=== PATIENT | female | born 1960 | race Caucasian/White ===

== ENCOUNTER 2016-04-30 15:50 | Emergency (ER) | payer MEDICARE ==
[2016-04-30] MEDS ORDERED: diphenhydrAMINE 50 MG CAP PO STA (17:43)
[2016-04-30] MEDS ORDERED: PROPARACAINE 0.5% OPHTH DROPS 15 ML BTL RIGHT EYE STA (17:43)
[2016-04-30] MEDS ORDERED: ACETAMINOPHEN TAB 500 MG TAB PO STA ×2 (17:43→19:11)
--- NOTE | 2016-04-30 17:43 | ED ---
Eye Problem HPI - General Chief complaint: Eye Problems Stated complaint: Eye Problems Time Seen by Provider: 04/30/16 17:32 Source: patient, RN notes reviewed Mode of arrival: ambulatory Limitations: no limitations - History of Present Illness Initial comments: 55-year-old female presents to the emergency department with a chief complaint of right eye redness and itching skin. Patient states that she seen her doctor for both her right eye redness as well as her itching skin. Her doctor told her that her itching was due to dry skin. Patient states that she also was seen for this right eye. They state it appeared to be inflamed they put her on steroids and sent her home. Patient states it improved but now it is red again patient states she has been treating her granddaughter for pinkeye to the right eye.. Patient states she has no symptoms of pain to the eye patient states she has noticed watering of the eye and itching to the eye. Patient states she hasn 't noticed any changes in vision. Patient states that she hasn't had any nausea or vomiting with this. Patient denies any fever or chills. Patient states she was concerned due to the continued redness to the eye as well as the itching of the skin so she thought that she should be evaluated. Patient denies any recent fever, chills, shortness of breath, chest pain, back pain, abdominal pain, nausea vomiting, numbness or tingling, dysuria or hematuria, constipation or diarrhea, headaches or visual changes, or any other current symptoms. - Related Data Home Medications Medication Instructions Recorded Confirmed Methylphenidate HCl [Ritalin] 20 mg PO BID 12/03/13 04/30/16 Potassium Chloride [Potassium 20 meq PO TID 12/03/13 04/30/16 Chloride ER] Venlafaxine HCl [Effexor] 75 mg PO BID 12/03/13 04/30/16 sulfaSALAzine [Azulfidine] 1,000 mg PO QID 12/03/13 04/30/16 Furosemide [Lasix] 20 mg PO DAILY 01/19/15 04/30/16 Losartan Potassium 100 mg PO QAM 01/19/15 04/30/16 traZODone HCL [Desyrel] 200 mg PO HS 01/19/15 04/30/16 Gabapentin [Neurontin] 100 mg PO TID 05/10/15 04/30/16 Ibuprofen [Motrin] 800 mg PO TID 05/10/15 04/30/16 Albuterol Nebulized [Ventolin 2.5 mg INHALATION RT-Q4H PRN 07/05/15 04/30/16 Nebulized] HYDROcodone/APAP 10-325MG [[place] 1 tab PO TID 12/07/15 04/30/16 10-325] Budesonide [Pulmicort] 0.25 mg INHALATION RT-BID PRN 04/27/16 04/30/16 Cyclobenzaprine [Flexeril] 5 mg PO BID 04/27/16 04/30/16 LORazepam [Lorazepam] 1 mg PO TID 04/27/16 04/30/16 Lidocaine 2% Gel [Xylocaine Jelly 1 applic TOPICAL BID 04/30/16 04/30/16 2%] Ranitidine HCl [Zantac] 75 mg PO DAILY PRN 04/30/16 04/30/16 predniSONE 10 mg PO BID 04/30/16 04/30/16 Previous Rx's Medication Instructions Recorded Tobramycin 0.3% Ophth Oint [Tobrex 1 applic RIGHT EYE TID 7 Days 04/30/16 0.3% Ophth Oint] diphenhydrAMINE [Benadryl] 50 mg PO HS PRN #5 capsule 04/30/16 Allergies Allergy/AdvReac Type Severity Reaction Status Date / Time nickel Allergy allergy Verified 04/30/16 17:32 test lisinopril AdvReac Itching,ap Verified 04/30/16 17:32 h,headache "amerchol" Allergy per Uncoded 04/30/16 16:13 allergy test gold Allergy allergy Uncoded 04/30/16 16:13 rash Review of Systems ROS Statement: Those systems with pertinent positive or pertinent negative responses have been documented in the HPI. ROS Other: All systems not noted in ROS Statement are negative. Past Medical History Past Medical History: Asthma, Chest Pain / Angina, COPD, Eye Disorder, Fibromyalgia, GERD/Reflux, Hypertension, Osteoarthritis (OA), Pneumonia, Prostate Disorder, Sleep Apnea/CPAP/BIPAP, Thyroid Disorder Additional Past Medical History / Comment(s): colitis, hx anemia, "overactive bladder", insomnia, RT EYE CATARACT, ULCERATIVE COLITIS History of Any Multi-Drug Resistant Organisms: None Reported Past Surgical History: Bowel Resection, Breast Surgery, Hernia Repair, Hysterectomy, Joint Replacement Additional Past Surgical History / Comment(s): RT BREAST-BENIGN TUMOR REMOVED, DANYEL KNEE REPLACEMENT, COLONOSCOPY. Past Anesthesia/Blood Transfusion Reactions: Previous Problems w/ Anesthesia, Motion Sickness Additional Past Anesthesia/Blood Transfusion Reaction / Comment(s): -seizure- after surgery (caused by severe sleep apnea per pt), Past Psychological History: ADD/ADHD, Anxiety, Depression Additional Psychological History / Comment(s): . Smoking Status: Never smoker Past Alcohol Use History: None Reported Past Drug Use History: None Reported - Past Family History Father Family Medical History: Cancer Additional Family Medical History / Comment(s): Father at age 70 of a brain tumor Mother Family Medical History: Myocardial Infarction ([place]) Additional Family Medical History / Comment(s): Legally blind. Mother at age 53 yrs. Sister(s) Family Medical History: Cancer General Exam Limitations: no limitations General appearance: alert, in no apparent distress Head exam: Present: atraumatic, normocephalic, normal inspection Eye exam: Present: PERRL, EOMI, conjunctival injection. Absent: scleral icterus , periorbital swelling (To the right eye), periorbital tenderness Pupils: Present: normal accommodation Expanded Eyelids: Normal Inspection: Bilateral Pupils: Regular, Round: Bilateral Sclera/Conjunctival: Normal Inspection: Left, Injection: Right IOP (R) in mmH IOP (L) in mmH IOP measured with: [place] ENT exam: Present: normal exam, mucous membranes moist Neck exam: Present: normal inspection. Absent: tenderness, meningismus, lymphadenopathy Respiratory exam: Present: normal lung sounds bilaterally Cardiovascular Exam: Present: regular rate, normal rhythm, normal heart sounds. Absent: systolic murmur, diastolic murmur, rubs, gallop, clicks Neurological exam: Present: alert, oriented X3, CN II-XII intact. Absent: motor sensory deficit Psychiatric exam: Present: normal affect, normal mood Skin exam: Present: warm, dry, intact, normal color. Absent: rash Course Vital Signs 04/30/16 16:10 Temperature 99.0 F Pulse Rate 124 H Respiratory 16 Rate Blood Pressure 170/110 O2 Sat by Pulse 96 Oximetry - Reevaluation(s) Reevaluation #1: 03/06/17 19:03 Patient's pain has completely resolved with the proparacaine drops. 04/30/16 19:03 With lamp examination shows some scratching to the sclera with no corneal abrasion. Medical Decision Making - Medical Decision Making 55-year-old female presents emergency Department chief complaint of itching scan in right eye irritation.. Patient appears to be a conjunctivitis of the right eye. She was treating her granddaughter for conjunctivitis with drops and earlier this week. Patient also does appear to have an ALLERGY type reaction to the skin with urticaria. We did give her Benadryl which helped with the itching. We discussed continuing to use Benadryl and following up with Dr. Haynes. We discussed return parameters and follow-up. Patient stated that she understood all cushions have answered. She will be discharged. Disposition Clinical Impression: Conjunctivitis, right eye, Urticaria Disposition: HOME SELF-CARE Condition: Stable Instructions: Conjunctivitis (ED), Urticaria (ED) Additional Instructions: Please use medication as discussed. Please follow up with family doctor if symptoms have not improved over the next two days. Please return to the emergency room if your symptoms increase or worsen or for any other concerns. Prescriptions: Tobramycin 0.3% Ophth Oint [Tobrex 0.3% Ophth Oint] 1 applic RIGHT EYE TID 7 Days diphenhydrAMINE [Benadryl] 50 mg PO HS PRN #5 capsule PRN Reason: Itching Referrals: Herman Junior MD [Primary Care Provider] - 1-2 days Ramana Valero MD [STAFF PHYSICIAN] - 1-2 days Time of Disposition: 19:04
[2016-04-30] MEDS ORDERED: IBUPROFEN 800 MG TAB PO STA ×2 (19:18→19:19)
[2016-04-30 19:51] VITALS: RESP 20; TEMP 99.3
--- NOTE | 2016-04-30 20:01 | ED ---
Medical Decision Making - Medical Decision Making On discharge patient was found to have a fever. Patient does have a cough with yellow sputum production and does admit to a runny nose. Add azithromycin to cover for an upper respiratory infection. Most likely due to the patient's fever. The patient is in agreement with plan. All cushions have been answered. She will be discharged. - Lab Data Lab Results 04/30/16 Range/Units 19:15 Influenza Type A RNA Not Detected (Not Detectd) Influenza Type B (PCR) Not Detected (Not Detectd) Disposition Clinical Impression: Conjunctivitis, right eye, Urticaria, Upper respiratory infection Disposition: HOME SELF-CARE Condition: Stable Instructions: Urticaria (ED), Conjunctivitis (ED) Additional Instructions: Please use medication as discussed. Please follow up with family doctor if symptoms have not improved over the next two days. Please return to the emergency room if your symptoms increase or worsen or for any other concerns. Prescriptions: Azithromycin [Zithromax] 250 mg PO DIRECTED #6 tab Tobramycin 0.3% Ophth Oint [Tobrex 0.3% Ophth Oint] 1 applic RIGHT EYE TID 7 Days diphenhydrAMINE [Benadryl] 50 mg PO HS PRN #5 capsule PRN Reason: Itching Referrals: Herman Junior MD [Primary Care Provider] - 1-2 days Ramana Valero MD [STAFF PHYSICIAN] - 1-2 days Time of Disposition: 20:01
[2016-04-30 20:06] VITALS: BP 144/76; PULSE 88
== END 2016-04-30 20:06 | disposition home or self-care (01) ==
LOC: EC 15:50
DX: H10.9 Unspecified conjunctivitis (principal); L50.9 Urticaria, unspecified; J45.909 Unspecified asthma, uncomplicated; J44.9 Chronic obstructive pulmonary disease, unspecified; M79.7 Fibromyalgia; K21.9 Gastro-esophageal reflux disease without esophagitis; I10 Essential (primary) hypertension; M19.90 Unspecified osteoarthritis, unspecified site; F90.9 Attention-deficit hyperactivity disorder, unspecified type; F41.9 Anxiety disorder, unspecified; F32.9 Major depressive disorder, single episode, unspecified; Z79.1 Long term (current) use of non-steroidal anti-inflammatories (NSAID); Z79.51 Long term (current) use of inhaled steroids; Z79.52 Long term (current) use of systemic steroids; Z79.899 Other long term (current) drug therapy; Z88.8 Allergy status to other drugs, medicaments and biological substances; Z91.09 Other allergy status, other than to drugs and biological substances; Z86.79 Personal history of other diseases of the circulatory system; Z87.01 Personal history of pneumonia (recurrent)
CPT/HCPCS: 87502; 99283

== ENCOUNTER → 2016-04-30 | Outpatient (CLI) | payer MEDICARE ==
--- NOTE | 2016-05-01 07:58 | MM ---
Reason for exam: clinical finding. Last mammogram was performed 3 years and 6 months ago. History: Patient is postmenopausal. Excisional biopsy of the right breast, June 25, 2006. Physical Findings: Nurse did not find any significant physical abnormalities on exam. MG Diagnostic Mammo w CAD DANYEL Bilateral CC and MLO view(s) were taken. Prior study comparison: October 29, 2012, CAD bilateral diagnostic mammogram. October 28, 2008, bilateral digital screening mammogram. The breast tissue is heterogeneously dense. This may lower the sensitivity of mammography. Finding: There are typically benign round calcifications. Mild increased denisty upper outer quadrant in the right breast for which an ultrasound is recommended. New finding since October 29, 2012 and October 28, 2008. These results were verbally communicated with the patient and result sheet given to the patient on 04/30/16. ASSESSMENT: Incomplete: need additional imaging evaluation, BI-RAD 0 RECOMMENDATION: Ultrasound of the right breast. Manage patient on a clinical basis.
--- NOTE | 2016-05-01 07:59 | USB ---
Reason for exam: additional evaluation requested from abnormal screening. History: Patient is postmenopausal. Excisional biopsy of the right breast, June 25, 2006. US Breast Limited RT Right breast ultrasound demonstrates a 0.7 x 0.5 x 0.2cm oval, cystic lesion at 9 o'clock. These results were verbally communicated with the patient and result sheet given to the patient on 04/30/16. ASSESSMENT: Probably benign, BI-RAD 3 RECOMMENDATION: Ultrasound of the right breast in 6 months.
== END ==
LOC: RADMAMWWP 14:28
PROVIDERS: ATTEND Surgery
DX: R92.8 Other abnormal and inconclusive findings on diagnostic imaging of breast (principal)
CPT/HCPCS: 76642; G0204

== ENCOUNTER → 2016-05-02 | Day surgery (SDC) | payer MEDICARE ==
[2016-04-27 14:43] VITALS: BMI 41.3
[~2016-05-02] MED LIST: BUPIVACAIN-EPI 0.25%-1:200,000 30 ML VIAL SQ ONE; DEXAMETHASONE SOD PHOSPHATE 10 MG/ML 1 ML VIAL IV ONE; GLYCOPYRROLATE 0.2 MG/ML 2 ML VIAL ONE; HEPARIN SODIUM,PORCINE 5,000 UNIT/ML 1 ML VIAL SQ ONE; HYDROCORTISONE SUCCINATE 100 MG/2 ML VIAL ONE; HYDROcodone/APAP 7.5-325MG 1 EACH TAB PO ONE; HYDROmorphone (PF) 1 MG/ML ONE; LACTATED RINGERS 1,000 ML IV ONE; LACTATED RINGERS 1,000 ML IV SCH; LIDOCAINE 1% 20 ML VIAL (10MG/ML) FOR IV START INTRADERMA ONE; LIDOCAINE 1% INJ 10MG/ML (20 ML MDV) ONE; METOPROLOL TARTRATE 5 MG/5 ML VIAL IVP ONE; MIDAZOLAM 2 MG/2 ML VIAL IV PRN; MIDAZOLAM 2 MG/2 ML VIAL ONE; NEOSTIGMINE 1 MG/ML 10 ML VIAL ONE; ONDANSETRON 4 MG/2 ML VIAL IVP ONE; PROPOFOL 10 MG/ML 20 ML VIAL IV ONE; ROCURONIUM BROMIDE 10 MG/ML 10 ML VIAL IV ONE; SODIUM CHLORIDE 0.9% 1,000 ML IV ONE; SUCCINYLCHOLINE CHLORIDE 100 MG/5 ML SYR IV ONE; ceFAZolin 2 GM in SODIUM CHLORIDE 0.9% 100 ML IVPB ONE; fentaNYL (PF) 50 MCG/ML 2 ML AMP ONE; hydrALAZINE HCL 20 MG/ML 1 ML VIAL IVP ONE
[2016-05-02 06:58] LABS: Glucose,Whole Blood 159 mg/dL (75-99)
[2016-05-02] MEDS: LACTATED RINGERS 1,000 ML IV SCH ×2 (06:58→08:34)
[2016-05-02 07:01] LABS: Aty Lym Flag Slight; CH 30.5; HCT 40.4 % (34.0-46.0); HDW 3.22; HGB 13.4 gm/dL (11.4-16.0); MCH 29.9 pg (25.0-35.0); MCHC 33.2 g/dL (31.0-37.0); Mean Platelet Volume 6.6; RBC 4.49 m/uL (3.80-5.40); RDW 14.5 % (11.5-15.5); WBC 5.6 k/uL (3.8-10.6); WBC (Perox) 5.75
[2016-05-02 07:29] LABS: Add Differential Manual Differential
[2016-05-02 07:32] LABS: Manual Review Performed; Nucleated Red Blood Cells 0 /100 WBC (0-0); RBC Morphology Normal; Total Cells Counted 100
--- NOTE | 2016-05-02 08:00 | P.GSHP ---
History of Present Illness H&P Date: 05/02/16 Chief Complaint: Incisional hernia This a 55-year-old female who presents today for laparoscopic robotic-assisted repair of incisional hernia. The patient is developed a mass in the upper portion of her incision over the last several months. - Constitutional Constitutional: Reports as per HPI Past Medical History Past Medical History: Asthma, Chest Pain / Angina, COPD, Eye Disorder, Fibromyalgia, GERD/Reflux, Hypertension, Osteoarthritis (OA), Pneumonia, Prostate Disorder, Sleep Apnea/CPAP/BIPAP, Thyroid Disorder Additional Past Medical History / Comment(s): colitis, hx anemia, "overactive bladder", insomnia, RT EYE CATARACT, ULCERATIVE COLITIS History of Any Multi-Drug Resistant Organisms: None Reported Past Surgical History: Bowel Resection, Breast Surgery, Hernia Repair, Hysterectomy, Joint Replacement Additional Past Surgical History / Comment(s): RT BREAST-BENIGN TUMOR REMOVED, DANYEL KNEE REPLACEMENT, COLONOSCOPY. Past Anesthesia/Blood Transfusion Reactions: Previous Problems w/ Anesthesia, Motion Sickness Additional Past Anesthesia/Blood Transfusion Reaction / Comment(s): -seizure- after surgery (caused by severe sleep apnea per pt), Past Psychological History: ADD/ADHD, Anxiety, Depression Additional Psychological History / Comment(s): . Smoking Status: Never smoker Past Alcohol Use History: None Reported Past Drug Use History: None Reported - Past Family History Father Family Medical History: Cancer Additional Family Medical History / Comment(s): Father at age 70 of a brain tumor Mother Family Medical History: Myocardial Infarction ([place]) Additional Family Medical History / Comment(s): Legally blind. Mother at age 53 yrs. Sister(s) Family Medical History: Cancer Medications and Allergies Home Medications Medication Instructions Recorded Confirmed Type Methylphenidate HCl [Ritalin] 20 mg PO BID 12/03/13 05/02/16 History Potassium Chloride [Potassium 20 meq PO TID 12/03/13 05/02/16 History Chloride ER] Venlafaxine HCl [Effexor] 75 mg PO BID 12/03/13 05/02/16 History sulfaSALAzine [Azulfidine] 1,000 mg PO QID 12/03/13 05/02/16 History Furosemide [Lasix] 20 mg PO DAILY 01/19/15 05/02/16 History Losartan Potassium 100 mg PO QAM 01/19/15 05/02/16 History traZODone HCL [Desyrel] 200 mg PO HS 01/19/15 05/02/16 History Gabapentin [Neurontin] 100 mg PO TID 05/10/15 05/02/16 History Ibuprofen [Motrin] 800 mg PO TID 05/10/15 05/02/16 History Albuterol Nebulized [Ventolin 2.5 mg INHALATION RT-Q4H PRN 07/05/15 05/02/16 History Nebulized] HYDROcodone/APAP 10-325MG [[place] 1 tab PO TID 12/07/15 05/02/16 History 10-325] Budesonide [Pulmicort] 0.25 mg INHALATION RT-BID PRN 04/27/16 05/02/16 History Cyclobenzaprine [Flexeril] 5 mg PO BID 04/27/16 05/02/16 History LORazepam [Lorazepam] 1 mg PO TID 04/27/16 05/02/16 History Lidocaine 2% Gel [Xylocaine Jelly 1 applic TOPICAL BID 04/30/16 05/02/16 History 2%] Ranitidine HCl [Zantac] 75 mg PO DAILY PRN 04/30/16 05/02/16 History predniSONE 10 mg PO BID 04/30/16 05/02/16 History Allergies Allergy/AdvReac Type Severity Reaction Status Date / Time nickel Allergy allergy Verified 05/02/16 06:41 test lisinopril AdvReac Itching,ap Verified 05/02/16 06:41 h,headache "amerchol" Allergy per Uncoded 05/02/16 06:41 allergy test gold Allergy allergy Uncoded 05/02/16 06:41 rash Surgical - Exam Vital Signs Temp Pulse Resp BP Pulse Ox 99.1 F 91 16 142/87 94 L 05/02/16 06:27 05/02/16 06:27 05/02/16 06:27 05/02/16 06:27 05/02/16 06:27 - General well developed, no distress - Eyes PERRL - ENT normal pinna - Neck no masses - Respiratory normal expansion - Cardiovascular Rhythm: regular - Abdomen Abdomen: soft, non tender Hernia: incisional (Reducible incisional hernia) Results - Labs 05/02/16 06:45 Abnormal Lab Results - Last 24 Hours (Table) 05/02/16 Range/Units 06:51 POC Glucose (mg/dL) 159 H (75-99) mg/dL Assessment and Plan Plan: Incisional hernia. We'll perform laparoscopic robotic-assisted repair
--- NOTE | 2016-05-02 10:02 | P.OP ---
Date of Procedure: 05/02/16 Preoperative Diagnosis: Incisional hernia Postoperative Diagnosis: Incisional hernia Procedure(s) Performed: Laparoscopic robotic-assisted repair of incisional hernia Anesthesia: VERONICA Surgeon: Raffy Caballero Estimated Blood Loss (ml): 5 Pathology: none sent Condition: stable Disposition: PACU Description of Procedure: The patient's placed on the operating table in the supine position. She received general anesthesia. Her abdomen was prepped and draped in a fashion. The patient's incisional hernias located at the superior portion of her midline scar. The skin incision sites were anesthetized with 1% local Xylocaine and then using a 5 mm blade less trocar under direct visualization the peritoneal cavity was entered in the left upper quadrant. After adequate insufflation the laparoscope was placed back into the peritoneal cavity. Next a robotic 8 mm trocar was placed in the left lower quadrant a 12 mm trocar was placed in the left lateral position and another 8 mm robotic trocar was placed in the left upper lateral position. The patient was placed in the left side up position and then the patient was docked to the robot. The patient had a incisional hernia. This was visualized and photographed. Using the oh strata fixed suture the fascial defect was repaired and then this was oversewn with OV lock suture. Next the ventral light ST mesh was placed into the. Cavity and this was secured with 20 the lock suture. At this point the patient was undocked from the robot. The needles were retrieved with the needle service parts driver and then the 12 mm trocar site was closed with 0 Ethibond suture. The skin was closed interrupted 3-0 Monocryl suture. Dermabond dressings was applied. Patient was sent to recovery in stable condition.
[2016-05-02 10:34] VITALS: TEMP 97.8
[2016-05-02] MEDS: HYDROmorphone 1 MG/ML 1 ML SYRINGE IVP PRN ×2 (11:53→11:58)
[2016-05-02 17:21] VITALS: BP 138/77; RESP 16
[2016-05-02 18:33] VITALS: PULSE 86
== END ==
LOC: OR 06:20
PROVIDERS: ATTEND Surgery
DX: K43.2 Incisional hernia without obstruction or gangrene (principal); J44.9 Chronic obstructive pulmonary disease, unspecified; J45.909 Unspecified asthma, uncomplicated; M79.7 Fibromyalgia; K21.9 Gastro-esophageal reflux disease without esophagitis; M19.90 Unspecified osteoarthritis, unspecified site; G47.33 Obstructive sleep apnea (adult) (pediatric); Z99.89 Dependence on other enabling machines and devices; I10 Essential (primary) hypertension; K52.9 Noninfective gastroenteritis and colitis, unspecified; Z79.891 Long term (current) use of opiate analgesic; Z79.51 Long term (current) use of inhaled steroids; Z79.52 Long term (current) use of systemic steroids; Z79.899 Other long term (current) drug therapy; Z88.8 Allergy status to other drugs, medicaments and biological substances; Z91.09 Other allergy status, other than to drugs and biological substances
CPT/HCPCS: 93005; 85025; 49654; C1781; J2250; J0360; J1644; J1100; J2710; J1720; J0690; J2405; J2001; J3010; J1170; J0330; J2704

== ENCOUNTER 2016-05-06 11:55 | Inpatient (IN) | payer MEDICARE ==
[2016-05-06] MEDS ORDERED: SODIUM CHLORIDE 0.9% 1,000 ML IV STA ×2 (11:58)
[2016-05-06] MEDS ORDERED: IPRATROPIUM-ALBUTEROL 3 ML NEB INHALATION STA (11:58)
--- NOTE | 2016-05-06 12:01 | ED ---
SOB HPI - General Stated Complaint: SOB Time Seen by Provider: 05/06/16 11:55 Source: patient, EMS, RN notes reviewed Mode of arrival: EMS - History of Present Illness Initial Comments: This is a 55-year-old female who just had a incisional hernia repair 4 days ago states she's been short of breath since 4 days ago she was released to the hospital today she she was very short of breath felt feverish had a cough with minimal phlegm production. EMS was called she noted have a blood pressure 170/ 80 somewhat dyspneic she was transferred here for evaluation. She has of a history of COPD. She did not take her home medications today she states she felt very weak and couldn't do it. MD Complaint: shortness of breath - Related Data Home Medications Medication Instructions Recorded Confirmed Methylphenidate HCl [Ritalin] 20 mg PO BID 12/03/13 05/06/16 Potassium Chloride [Potassium 20 meq PO TID 12/03/13 05/06/16 Chloride ER] Venlafaxine HCl [Effexor] 75 mg PO BID 12/03/13 05/06/16 sulfaSALAzine [Azulfidine] 1,000 mg PO QID 12/03/13 05/06/16 Furosemide [Lasix] 20 mg PO DAILY 01/19/15 05/06/16 Losartan Potassium 100 mg PO QAM 01/19/15 05/06/16 traZODone HCL [Desyrel] 200 mg PO HS 01/19/15 05/06/16 Gabapentin [Neurontin] 100 mg PO TID 05/10/15 05/06/16 Ibuprofen [Motrin] 800 mg PO TID 05/10/15 05/06/16 Albuterol Nebulized [Ventolin 2.5 mg INHALATION RT-QID PRN 07/05/15 05/06/16 Nebulized] HYDROcodone/APAP 10-325MG [[place] 1 tab PO TID 12/07/15 05/06/16 10-325] Budesonide [Pulmicort] 0.25 mg INHALATION RT-BID PRN 04/27/16 05/06/16 Cyclobenzaprine [Flexeril] 5 mg PO Q12H 04/27/16 05/06/16 LORazepam [Lorazepam] 1 mg PO TID 04/27/16 05/06/16 Lidocaine 2% Gel [Xylocaine Jelly 1 applic TOPICAL BID 04/30/16 05/06/16 2%] Ranitidine HCl [Zantac] 75 mg PO DAILY PRN 04/30/16 05/06/16 predniSONE 10 mg PO BID 04/30/16 05/06/16 Previous Rx's Medication Instructions Recorded Tobramycin 0.3% Ophth Oint [Tobrex 1 applic RIGHT EYE TID 7 Days 04/30/16 0.3% Ophth Oint] diphenhydrAMINE [Benadryl] 50 mg PO HS PRN #5 capsule 04/30/16 Allergies Allergy/AdvReac Type Severity Reaction Status Date / Time nickel Allergy allergy Verified 05/06/16 12:34 test lisinopril AdvReac Itching,ap Verified 05/06/16 12:34 h,headache "amerchol" Allergy per Uncoded 05/06/16 12:00 allergy test gold Allergy allergy Uncoded 05/06/16 12:00 rash Review of Systems ROS Statement: Those systems with pertinent positive or pertinent negative responses have been documented in the HPI. ROS Other: All systems not noted in ROS Statement are negative. Past Medical History Past Medical History: Asthma, Chest Pain / Angina, COPD, Eye Disorder, Fibromyalgia, GERD/Reflux, Hypertension, Osteoarthritis (OA), Pneumonia, Prostate Disorder, Sleep Apnea/CPAP/BIPAP, Thyroid Disorder Additional Past Medical History / Comment(s): colitis, hx anemia, "overactive bladder", insomnia, RT EYE CATARACT, ULCERATIVE COLITIS History of Any Multi-Drug Resistant Organisms: None Reported Past Surgical History: Bowel Resection, Breast Surgery, Hernia Repair, Hysterectomy, Joint Replacement Additional Past Surgical History / Comment(s): RT BREAST-BENIGN TUMOR REMOVED, DANYEL KNEE REPLACEMENT, COLONOSCOPY. Past Anesthesia/Blood Transfusion Reactions: Previous Problems w/ Anesthesia, Motion Sickness Additional Past Anesthesia/Blood Transfusion Reaction / Comment(s): -seizure- after surgery (caused by severe sleep apnea per pt), Past Psychological History: ADD/ADHD, Anxiety, Depression Additional Psychological History / Comment(s): . Smoking Status: Never smoker Past Alcohol Use History: None Reported Past Drug Use History: None Reported - Past Family History Father Family Medical History: Cancer Additional Family Medical History / Comment(s): Father at age 70 of a brain tumor Mother Family Medical History: Myocardial Infarction ([place]) Additional Family Medical History / Comment(s): Legally blind. Mother at age 53 yrs. Sister(s) Family Medical History: Cancer General Exam - General Exam Comments Initial Comments: This is a well-developed well-nourished awake alert anxious appearing female General appearance: alert, in no apparent distress Head exam: Present: atraumatic, normocephalic, normal inspection Eye exam: Present: normal appearance, PERRL, EOMI. Absent: scleral icterus, conjunctival injection, periorbital swelling ENT exam: Present: mucous membranes dry Neck exam: Present: normal inspection. Absent: tenderness, meningismus, lymphadenopathy Respiratory exam: Present: wheezes, decreased breath sounds. Absent: respiratory distress, rales, rhonchi, stridor Cardiovascular Exam: Present: normal rhythm, tachycardia, normal heart sounds. Absent: systolic murmur, diastolic murmur, rubs, gallop, clicks GI/Abdominal exam: Present: soft, normal bowel sounds. Absent: distended, tenderness (Minimal tenderness palpation the surgical sites appear to be without evidence of infection.), guarding, rebound, rigid Extremities exam: Present: normal inspection, full ROM, normal capillary refill. Absent: tenderness, pedal edema, joint swelling, calf tenderness Back exam: Present: normal inspection Neurological exam: Present: alert, oriented X3, CN II-XII intact Psychiatric exam: Present: normal affect, normal mood Skin exam: Present: warm, dry, intact, normal color. Absent: rash Course Vital Signs 05/06/16 05/06/16 05/06/16 11:57 12:45 12:56 Temperature 101.6 F H Pulse Rate 117 H 122 H 112 H Respiratory 20 Rate Blood Pressure 151/73 O2 Sat by Pulse 96 Oximetry 05/06/16 05/06/16 13:00 14:00 Temperature 100.2 F H Pulse Rate 103 H 102 H Respiratory 20 20 Rate Blood Pressure 144/76 143/92 O2 Sat by Pulse 99 99 Oximetry - Reevaluation(s) Reevaluation #1: 05/06/16 14:24 Initial reevaluation patient reveals minimal improvement in her breathing. Medical Decision Making - Medical Decision Making Patient reevaluated several more occasions she is getting some improvement but not much. I did discuss the findings with her she still having dyspnea wheezing and diminished breath sounds. I did discuss the case with Dr. Junior. Patient will be admitted she does see Dr. Strickland will be consulted. - Lab Data Result diagrams: 05/06/16 12:10 05/06/16 12:10 Lab Results 05/06/16 05/06/16 05/06/16 Range/Units 12:10 12:10 12:10 WBC 4.3 (3.8-10.6) k/uL RBC 4.16 (3.80-5.40) m/uL Hgb 12.2 (11.4-16.0) gm/dL Hct 38.1 (34.0-46.0) % MCV 91.6 (80.0-100.0) fL MCH 29.3 (25.0-35.0) pg MCHC 32.0 (31.0-37.0) g/dL RDW 14.5 (11.5-15.5) % Plt Count 211 (150-450) k/uL Neutrophils % 68 % Lymphocytes % 15 % Monocytes % 13 % Eosinophils % 0 % Basophils % 1 % Neutrophils # 2.9 (1.3-7.7) k/uL Lymphocytes # 0.7 L (1.0-4.8) k/uL Monocytes # 0.5 (0-1.0) k/uL Eosinophils # 0.0 (0-0.7) k/uL Basophils # 0.0 (0-0.2) k/uL PT (9.0-12.0) sec INR (<1.1) APTT (22.0-30.0) sec Sodium 145 (137-145) mmol/L Potassium 3.3 L (3.5-5.1) mmol/L Chloride 106 (98-107) mmol/L Carbon Dioxide 31 H (22-30) mmol/L Anion Gap 8 mmol/L BUN 10 (7-17) mg/dL Creatinine 0.70 (0.52-1.04) mg/dL Est GFR (MDRD) Af Amer >60 (>60 ml/min/1.73 sqM) Est GFR (MDRD) Non-Af >60 (>60 ml/min/1.73 sqM) Glucose 147 H (74-99) mg/dL Calcium 8.6 (8.4-10.2) mg/dL Magnesium 1.8 (1.6-2.3) mg/dL Total Bilirubin 0.8 (0.2-1.3) mg/dL AST 25 (14-36) U/L ALT 38 (9-52) U/L Alkaline Phosphatase 77 (38-126) U/L Total Creatine Kinase 32 (30-135) U/L CK-MB (CK-2) <0.2 (0.0-2.4) ng/mL CK-MB (CK-2) Rel Index Troponin I <0.012 (0.000-0.034) ng/mL NT-Pro-B Natriuret Pep pg/mL Total Protein 5.9 L (6.3-8.2) g/dL Albumin 3.1 L (3.5-5.0) g/dL Influenza Type A RNA (Not Detectd) Influenza Type B (PCR) (Not Detectd) 05/06/16 05/06/16 05/06/16 Range/Units 12:10 12:10 12:10 WBC (3.8-10.6) k/uL RBC (3.80-5.40) m/uL Hgb (11.4-16.0) gm/dL Hct (34.0-46.0) % MCV (80.0-100.0) fL MCH (25.0-35.0) pg MCHC (31.0-37.0) g/dL RDW (11.5-15.5) % Plt Count (150-450) k/uL Neutrophils % % Lymphocytes % % Monocytes % % Eosinophils % % Basophils % % Neutrophils # (1.3-7.7) k/uL Lymphocytes # (1.0-4.8) k/uL Monocytes # (0-1.0) k/uL Eosinophils # (0-0.7) k/uL Basophils # (0-0.2) k/uL PT 10.5 (9.0-12.0) sec INR 1.0 (<1.1) APTT 23.2 (22.0-30.0) sec Sodium (137-145) mmol/L Potassium (3.5-5.1) mmol/L Chloride (98-107) mmol/L Carbon Dioxide (22-30) mmol/L Anion Gap mmol/L BUN (7-17) mg/dL Creatinine (0.52-1.04) mg/dL Est GFR (MDRD) Af Amer (>60 ml/min/1.73 sqM) Est GFR (MDRD) Non-Af (>60 ml/min/1.73 sqM) Glucose (74-99) mg/dL Calcium (8.4-10.2) mg/dL Magnesium (1.6-2.3) mg/dL Total Bilirubin (0.2-1.3) mg/dL AST (14-36) U/L ALT (9-52) U/L Alkaline Phosphatase (38-126) U/L Total Creatine Kinase (30-135) U/L CK-MB (CK-2) (0.0-2.4) ng/mL CK-MB (CK-2) Rel Index Troponin I (0.000-0.034) ng/mL NT-Pro-B Natriuret Pep 36 pg/mL Total Protein (6.3-8.2) g/dL Albumin (3.5-5.0) g/dL Influenza Type A RNA Not Detected (Not Detectd) Influenza Type B (PCR) Not Detected (Not Detectd) - EKG Data -: EKG Interpreted by N[facility] EKG shows normal: sinus rhythm (Sinus tachycardia rate 114 [place] interval 134 QRS duration 72 QT/QTC of 346/476 left axis deviation moderate voltage criteria for LVH no acute ST-T wave elevation or depressions.) - Radiology Data Radiology results: report reviewed (I did review the x-rays and report no definite acute findings.), image reviewed Critical Care Time Critical Care Time: Yes Critical Care Time: 3 limits of critical care time which includes initial presentation with monitoring of the EMS call discussed with paramedics history physical lab and x- rays of the patient evaluation same. Reevaluation the patient on several occasions for responsive therapy. I did discuss case with Dr. Junior. This includes orders and documentation the above. Disposition Clinical Impression: Acute exacerbation of chronic obstructive airways disease, Adult respiratory distress syndrome, Hypokalemia, Febrile illness, acute Disposition: ADMITTED IP TO THIS HOSP Condition: Stable
[2016-05-06 12:43] LABS: ALT 38 U/L (9-52); AST 25 U/L (14-36); Alkaline Phosphatase 77 U/L (38-126); Anion Gap 8 mmol/L; Blood Urea Nitrogen 10 mg/dL (7-17); Calcium 8.6 mg/dL (8.4-10.2); Carbon Dioxide 31 mmol/L (22-30); Chloride 106 mmol/L (98-107); Glucose 147 mg/dL (74-99); Magnesium 1.8 mg/dL (1.6-2.3); Non-African American GFR(MDRD) >60 (>60 ml/min/1.73 sqM); Potassium 3.3 mmol/L (3.5-5.1); Sodium 145 mmol/L (137-145); Total Bilirubin 0.8 mg/dL (0.2-1.3); Total Protein 5.9 g/dL (6.3-8.2)
[2016-05-06 12:47] LABS: Partial Thromboplastin Time 23.2 sec (22.0-30.0); Prothrombin Time 10.5 sec (9.0-12.0)
[2016-05-06 12:49] LABS: Creatine Kinase 32 U/L (30-135)
[2016-05-06 13:01] LABS: Basophils % (A) 1 %; CH 30.4; CHCM 33.3; Creatine Kinase MB <0.2 ng/mL (0.0-2.4); Eosinophils % (A) 0 %; HCT 38.1 % (34.0-46.0); HDW 3.15; HGB 12.2 gm/dL (11.4-16.0); Luc # (Auto) 0.16; Luc % (Auto) 4; Lymphocytes # (A) 0.7 k/uL (1.0-4.8); Lymphocytes % (A) 15 %; MCH 29.3 pg (25.0-35.0); MCV 91.6 fL (80.0-100.0); Mean Platelet Volume 6.8; Monocytes # (A) 0.5 k/uL (0-1.0); Monocytes % (A) 13 %; Neutrophils # (A) 2.9 k/uL (1.3-7.7); Neutrophils % (A) 68 %; RBC 4.16 m/uL (3.80-5.40); RDW 14.5 % (11.5-15.5); Troponin I <0.012 ng/mL (0.000-0.034); WBC 4.3 k/uL (3.8-10.6); WBC (Perox) 4.69
--- NOTE | 2016-05-06 13:22 | XR ---
EXAMINATION TYPE: XR chest 2V DATE OF EXAM: 05/06/2016 1:15 PM COMPARISON: Prior chest x-ray July 11, 2015. HISTORY: Difficulty in breathing per order. Fever after recent hernia repair surgery on Saturday per patient. TECHNIQUE: Frontal and lateral views of the chest are obtained. FINDINGS: There is redemonstration of low lung volumes. Similar prior exam is patchy bibasilar opac ity consistent with atelectatic change and/or infiltrate more prominent on current study posterior checo ng base presumed right side. No large pleural effusion or pneumothorax is seen bilaterally. The cardi ac silhouette size is within normal limits. The osseous structures are intact. IMPRESSION: Low lung volumes with right greater than left bibasilar atelectasis and/or infiltrate no shruti.
[2016-05-06] MEDS ORDERED: FAMOTIDINE 20 MG TAB PO PRN (14:31)
[2016-05-06] MEDS ORDERED: POTASSIUM CHLORIDE 20 MEQ, LIDOCAINE 2% INJ 20 MG in SODIUM CHLORIDE 0.9% 100 ML IVPB ONE (14:32)
[2016-05-06 15:31] VITALS: BMI 41.3
[2016-05-06] MEDS: CYCLOBENZAPRINE 5 MG TAB PO SCH ×2 (17:08→21:31)
[2016-05-06] MEDS: IBUPROFEN 800 MG TAB PO SCH ×2 (17:09→22:51)
[2016-05-06] MEDS: LEVOFLOXACIN 500 MG TAB PO SCH (17:09)
[2016-05-06] MEDS: GABAPENTIN 100 MG CAP PO SCH ×2 (17:09→21:33)
[2016-05-06] MEDS: POTASSIUM CHLORIDE ER 20 MEQ TAB.ER PO SCH ×2 (17:10→21:31)
[2016-05-06 17:12] LABS: Glucose,Whole Blood 125 mg/dL (75-99)
[2016-05-06] MEDS: LORazepam 1 MG TAB PO SCH ×2 (17:14→21:31)
[2016-05-06] MEDS: INSULIN LISPRO (humaLOG) 300 UNIT/3 ML VIAL SQ SCH ×2 (17:56→21:33)
[2016-05-06] MEDS: sulfaSALAzine 500 MG TAB PO SCH ×2 (18:04→21:31)
[2016-05-06] MEDS: methylPREDNISolone SOD SUCCI 125 MG/2 ML VIAL IV SCH ×2 (18:04→23:37)
[2016-05-06] MEDS: HYDROcodone/APAP 10-325MG 1 EACH TAB PO SCH ×2 (18:04→21:31)
[2016-05-06] MEDS: IPRATROPIUM-ALBUTEROL 3 ML NEB INHALATION SCH ×2 (19:16)
[2016-05-06 20:55] LABS: Glucose,Whole Blood 236 mg/dL (75-99)
[2016-05-06] MEDS ORDERED: IPRATROPIUM-ALBUTEROL 3 ML NEB INHALATION PRN (21:21)
[2016-05-06] MEDS: VENLAFAXINE HCL 75 MG TAB PO SCH (21:30)
[2016-05-06] MEDS: traZODone HCL 100 MG TAB PO SCH (21:31)
[2016-05-06] MEDS: LIDOCAINE 2% GEL 30 ML TUBE TOPICAL SCH (21:44)
[2016-05-06] MEDS ORDERED: RX INFO: IV CONTRAST WAS GIVEN 1 EACH MISC MISCELLANE PRN (22:48)
--- NOTE | 2016-05-06 23:38 | CT ---
EXAM: CT Angiography Chest With Intravenous Contrast. CLINICAL HISTORY: Reason: rule out PE TECHNIQUE: Axial computed tomographic angiography images of the chest with intravenous contrast using pulmonary embolism protocol. CTDI is 83.46 mGy and DLP is 658 mGy-cm MIP reconstructed images were created and reviewed. COMPARISON: 12/04/13 CTA chest. FINDINGS: Pulmonary arteries: Mild motion related artifact through the lower lung henderson. No central or segmental PE is seen with more limited assessment of the subsegmental branches particularly at the lung bases. Aorta: No acute findings. No thoracic aortic aneurysm. Lungs: There is linear atelectasis or infiltrate at the right base anteriorly and posteriorly. Pleural spaces: Unremarkable. No significant effusion. No pneumothorax. Heart: Trace amount of pericardial fluid or thickening is stable. No evidence of RV dysfunction. Bones: Bone stable including degenerative changes. No acute fracture. Soft tissues: Partially included is an ovoid fluid collection within the upper anterior abdominal wall soft tissues measuring 6.1 x 1.8 cm on the lowest axial image and adjacent to which there is small amount of air within the subcutaneous fat, with which overlies what appears to be a small midline subxiphoid ventral wall hernia defect. Lymph nodes: Unremarkable. No enlarged lymph nodes. Upper abdomen: The right diaphragm is again elevated. Mild hepatomegaly and hepatic steatosis are noted. IMPRESSION: 1. New linear atelectasis or infiltrate at the right lung base. 2. Possible postoperative changes that could account for a nonspecific small fluid collection, and small amount of adjacent air, as partially included in the upper anterior abdominal wall. Correlate clinically.
[2016-05-07] MEDS: methylPREDNISolone SOD SUCCI 125 MG/2 ML VIAL IV SCH ×2 (06:19→12:05)
[2016-05-07 06:55] LABS: Glucose,Whole Blood 209 mg/dL (75-99)
[2016-05-07] MEDS: IPRATROPIUM-ALBUTEROL 3 ML NEB INHALATION SCH ×4 (07:01→19:32)
[2016-05-07] MEDS: METHYLPHENIDATE HCL 10 MG TAB PO SCH ×2 (07:56→16:29)
[2016-05-07] MEDS: INSULIN LISPRO (humaLOG) 300 UNIT/3 ML VIAL SQ SCH ×4 (07:58→21:14)
[2016-05-07] MEDS: FUROSEMIDE 20 MG TAB PO SCH (08:00)
[2016-05-07] MEDS: GABAPENTIN 100 MG CAP PO SCH ×3 (08:00→21:11)
[2016-05-07] MEDS: CYCLOBENZAPRINE 5 MG TAB PO SCH ×2 (08:00→21:11)
[2016-05-07] MEDS: LOSARTAN 50 MG TAB PO SCH (08:01)
[2016-05-07] MEDS: sulfaSALAzine 500 MG TAB PO SCH ×4 (08:01→21:13)
[2016-05-07] MEDS: IBUPROFEN 800 MG TAB PO SCH ×4 (08:01→22:40)
[2016-05-07] MEDS: VENLAFAXINE HCL 75 MG TAB PO SCH ×2 (08:01→21:11)
[2016-05-07] MEDS: LIDOCAINE 2% GEL 30 ML TUBE TOPICAL SCH ×2 (08:01→21:15)
[2016-05-07] MEDS: POTASSIUM CHLORIDE ER 20 MEQ TAB.ER PO SCH ×3 (08:02→21:11)
[2016-05-07] MEDS: HYDROcodone/APAP 10-325MG 1 EACH TAB PO SCH ×3 (08:05→21:11)
[2016-05-07] MEDS: LORazepam 1 MG TAB PO SCH ×3 (08:05→21:11)
--- NOTE | 2016-05-07 08:23 | HP ---
DATE OF ADMISSION: CHIEF COMPLAINT: A 55-year-old white female who has had incisional hernia repair 4 days ago. Since then, she has been short of breath for the last 4 days. She was brought to the hospital for very shortness of breath. She felt feverish, cough with minimal phlegm. She had blood pressure of 170/80. She was sent to the hospital. She has a history of COPD exacerbation. She feels very weak. She could not take her home medicines today. Home medications include: 1. Ritalin 20 b.i.d. 2. Potassium chloride 20 mEq t.i.d. 3. Effexor 75 mg b.i.d. 4. Azulfidine 1000 q.i.d. 5. Lasix 20 daily. 6. Potassium. 7. Losartan 100 mg daily. 8. Trazodone 200 daily. 9. Neurontin 100 t.i.d. 10. Motrin 800 t.i.d. 11. Albuterol nebulizer solution q.i.d. 12. [place] 10/325 t.i.d. 13. Pulmicort 0.25 b.i.d. 14. Flexeril 5 mg q.12 hours. 15. Lorazepam 1 mg t.i.d. 16. Lidocaine topical b.i.d. 17. Zantac 75 daily. 18. Prednisone 10 mg b.i.d. ALLERGIES: NICKEL, LISINOPRIL, AMERCHOL, GOLD. PAST MEDICAL HISTORY: COPD, eye disorders, fibromyalgia, GERD, hypertension, osteoarthritis, pneumonia, sleep apnea, hypothyroidism, colitis, overactive bladder, ulcerative colitis, right cataract surgery. PAST SURGICAL HISTORY: Bowel resection, breast surgery, hernia repair, hysterectomy, joint replacement, ADHD, anxiety, depression. FAMILY HISTORY: Father with cancer at age 70 of a brain tumor, mother myocardial infarction, legally blind at age 53. Temperature is 101.6, pulse rate is 117 to 122. Sodium rate 18 to 20, blood pressure 150s/70s, O2 is 96% on room air. CARDIOVASCULAR: S1, S2. No murmurs, rubs, or gallops. GI: Soft, nontender, normal bowel sounds. EXTREMITIES: No cyanosis, clubbing, or edema. BACK: Normal inspection. NEUROLOGIC: Alert and oriented x3. PSYCHIATRIC: Fair mood and affect. SKIN: No rashes, excoriation, bruising. ENDOCRINE: BMI is over 40. ASSESSMENT: 1. Chronic obstructive pulmonary disease exacerbation. 2. Hypokalemia. 3. Moderate calorie protein malnutrition. 4. No respiratory distress syndrome. 5. Hypokalemia. 6. Fibromyalgia and that is acute. PLAN: IV steroids. Updraft treatment. IV antibiotics, rule out pulmonary embolism will be done. D-dimer will be ordered.
[2016-05-07 11:52] LABS: Glucose,Whole Blood 275 mg/dL (75-99)
[2016-05-07] MEDS: LEVOFLOXACIN 500 MG TAB PO SCH (16:25)
--- NOTE | 2016-05-07 16:26 | P.PN ---
Subjective 55-year-old female being seen. Patient states feels short of breath with intermittent dry nonproductive cough. Patients being followed by pulmonology. Chest x-ray suggests a right lower lobe pneumonia. CAT scan of the chest shows pneumonia on the right. Objective - Vital Signs Vital signs: Vital Signs Temp 96.4 F L 05/07/16 07:00 Pulse 94 05/07/16 15:43 Resp 16 05/07/16 07:00 BP 129/71 05/07/16 07:00 Pulse Ox 92 L 05/07/16 07:00 Intake & Output 05/06/16 05/07/16 05/07/16 18:59 06:59 18:59 Intake Total 1150 360 Balance 1150 360 Weight 96.162 kg Intake: Intake, IV Titration 1150 Amount Sodium Chloride 0.9% 1, 1150 000 ml @ 100 mls/hr IV . Q10H STA Rx#:[id number] Oral 360 Other: Voiding Method Toilet Toilet Toilet # Voids 1 - Exam physical exam 55-year-old female sitting up does not appear in any acute distress Lungs posterior diminished at the bases not able to appreciate any wheezing this morning Heart S1-S2 audible regular Abdomen soft nontender reports no nausea vomiting Extremities no edema - Labs CBC & Chem 7: 05/06/16 12:10 05/06/16 12:10 Labs: Abnormal Lab Results - Last 24 Hours (Table) 05/06/16 05/06/16 05/06/16 Range/Units 17:10 20:26 20:53 D-Dimer 3.10 H (<0.60) mg/L FEU POC Glucose (mg/dL) 125 H 236 H (75-99) mg/dL 05/07/16 05/07/16 Range/Units 06:53 11:50 D-Dimer (<0.60) mg/L FEU POC Glucose (mg/dL) 209 H 275 H (75-99) mg/dL Assessment and Plan Plan: impression present on admission shortness of breath suspect due to right lower lobe pneumonia and acute exacerbation of asthma elevated d-dimerthe CAT scan of the chest showed no evidence of a pulmonary embolipossibly postoperative changes accounting for nonspecific small fluid collection with a small amount adjacent air Severe COPD Chronic persistent asthma Mood disorder nonspecified fibromyalgia Esophageal reflux Chronic anemia Plan Continue recommendations by pulmonology Continue home meds as appropriate DVT and GI prophylaxis Further recommendations pending Continue antibiotics as ordered Solu-Medrol 40 IV every 12 The above dictated assessment and findings were discussed with dr leal . Impression and the plan of care have been dictated as directed. Nicolle Figueroa nurse practitioner acting as a scribe for dr leal
[2016-05-07 17:22] LABS: Glucose,Whole Blood 251 mg/dL (75-99)
[2016-05-07] MEDS: BUDESONIDE 1 MG/2 ML NEBU INHALATION SCH (19:32)
[2016-05-07 20:53] LABS: Glucose,Whole Blood 255 mg/dL (75-99)
[2016-05-07] MEDS: traZODone HCL 100 MG TAB PO SCH (21:11)
[2016-05-07] MEDS: methylPREDNISolone SOD SUCCI 40 MG/ML 1 ML VIAL IV SCH (21:14)
[2016-05-07] MEDS: FAMOTIDINE 20 MG TAB PO SCH (21:14)
[2016-05-07] MEDS: HEPARIN SODIUM,PORCINE 5,000 UNIT/ML 1 ML VIAL SQ SCH (21:14)
--- NOTE | 2016-05-07 22:07 | CONS ---
DATE OF CONSULTATION: 05/07/2016 Ms. Caitlin Ambriz is a 55-year-old female who was seen, evaluated, examined on the ( ) floor with history of increased cough, congestion, shortness of breath with wheezing that started 3 to 4 days prior to coming into the hospital. Ms. Caitlin Ambriz is well known to me. She presented to the hospital with increasing shortness of breath. Patient recently had an incisional hernia repair. She has been short of breath; also has borderline elevated blood pressure. She has an intermittent dry nonproductive cough. With those problems, she came into the emergency department and was seen, evaluated, examined and admitted to the hospital. PAST MEDICAL HISTORY: 1. Chronic persistent asthma. 2. Severe COPD. 3. Fibromyalgia. 4. GERD. 5. History of obstructive sleep apnea. 6. Chronic anemia. 7. Overactive bladder. Past surgical history is significant for: 1. Bowel resection. 2. Breast surgery. 3. Hernia repair. 4. History of hysterectomy. 5. Status post bilateral knee arthroplasty. FAMILY HISTORY AND SOCIAL HISTORY: Otherwise unremarkable and noncontributory. Denies any smoking, ethanol use or substance use. ALLERGIES include: 1. NICKEL. 2. LISINOPRIL. 3. GOLD. Medications at home include: 1. Benadryl as needed. 2. Prednisone 10 mg 2 times a day. 3. Ranitidine 75 mg as needed. 4. Lidocaine patch. 5. Lorazepam. 6. Flexeril. 7. Pulmicort. 8. Hydrocodone with APAP. 9. Ventolin. 10. Motrin 11. Neurontin. 12. Desyrel. 13. Potassium. 14. Lasix. 15. Sulfasalazine. 16. Effexor. 17. Potassium ( ) REVIEW OF SYSTEMS: Otherwise unremarkable and noncontributory except as dictated above. On examination, most recent vitals include blood pressure 130/70, respiratory rate 16, pulse 78, temperature 98. Saturating 92% on 2 L oxygen. HEENT: Unremarkable. Atraumatic, normocephalic. Pharynx is clear without exudate. NECK: Supple without lymphadenopathy, jugular venous distention or carotid bruit. LUNGS: Bilateral fine inspiratory and expiratory wheezing and rhonchi are present. HEART: Regular rate, rhythm. S1, S2 audible. ABDOMEN: Soft. No rebound or rigidity. EXTREMITIES: Plus one peripheral pulses. NEUROLOGICAL EXAMINATION: Awake and alert. No focal neurologic deficit. Chest x-ray revealed right lower lobe pneumonia. CT scan of the chest performed revealed basal pneumonia on the right side with postoperative changes in the abdomen. Other laboratory data reviewed which include white cell count of 4300; CBC otherwise within normal limits. D-dimer is 3.1. Glucose 236, 275. Chemistry is within normal limits. Influenza A and B are both negative. Blood cultures: No growth so far. IMPRESSION: 1. Right lower lobe pneumonia. 2. Acute asthma related to above. 3. Hypertension, hypertensive cardiovascular disease. 4. Mood disorder. 5. Elevated D-dimer likely related to postoperative status. 6. Obesity and obstructive sleep apnea. Patient has been on CPAP machine. PLAN AND RECOMMENDATIONS: As above. Continue supportive care, antibiotics, breathing treatments, steroids. Follow clinical course closely. Maintain patient on DVT and peptic ulcer disease prophylaxis as well. Will follow.
[2016-05-08 07:33] LABS: Glucose,Whole Blood 172 mg/dL (75-99)
[2016-05-08] MEDS: BUDESONIDE 1 MG/2 ML NEBU INHALATION SCH ×2 (07:35→22:06)
[2016-05-08] MEDS: IPRATROPIUM-ALBUTEROL 3 ML NEB INHALATION SCH ×4 (07:36→22:06)
[2016-05-08] MEDS: METHYLPHENIDATE HCL 10 MG TAB PO SCH ×2 (07:49→15:59)
[2016-05-08] MEDS: CYCLOBENZAPRINE 5 MG TAB PO SCH ×2 (07:50→21:29)
[2016-05-08] MEDS: FUROSEMIDE 20 MG TAB PO SCH (07:50)
[2016-05-08] MEDS: GABAPENTIN 100 MG CAP PO SCH ×3 (07:51→21:29)
[2016-05-08] MEDS: HEPARIN SODIUM,PORCINE 5,000 UNIT/ML 1 ML VIAL SQ SCH ×2 (07:51→21:30)
[2016-05-08] MEDS: LIDOCAINE 2% GEL 30 ML TUBE TOPICAL SCH ×2 (07:52→21:30)
[2016-05-08] MEDS: IBUPROFEN 800 MG TAB PO SCH ×4 (07:52→21:29)
[2016-05-08] MEDS: LORazepam 1 MG TAB PO SCH ×3 (07:52→21:29)
[2016-05-08] MEDS: methylPREDNISolone SOD SUCCI 40 MG/ML 1 ML VIAL IV SCH ×2 (07:53→21:29)
[2016-05-08] MEDS: POTASSIUM CHLORIDE ER 20 MEQ TAB.ER PO SCH ×3 (07:53→21:29)
[2016-05-08] MEDS: sulfaSALAzine 500 MG TAB PO SCH ×4 (07:53→21:31)
[2016-05-08] MEDS: VENLAFAXINE HCL 75 MG TAB PO SCH ×2 (07:53→21:30)
[2016-05-08] MEDS: LOSARTAN 50 MG TAB PO SCH (07:54)
[2016-05-08] MEDS: HYDROcodone/APAP 10-325MG 1 EACH TAB PO SCH ×3 (07:54→21:27)
[2016-05-08] MEDS: INSULIN LISPRO (humaLOG) 300 UNIT/3 ML VIAL SQ SCH ×4 (07:57→21:42)
[2016-05-08 08:02] LABS: Appearance,Urine Cloudy (Clear); Bilirubin,Urine Negative (Negative); Glucose,Urine (UA) Trace (Negative); Ketones,Urine Trace (Negative); Leukocyte Esterase,Urine Trace (Negative); Mucus,Urine Moderate /hpf; Nitrite,Urine Negative (Negative); Particle Count 12163; Protein,Urine Trace (Negative); RBC,Urine 3 /hpf (0-5); Specific Gravity,Urine 1.026 (1.001-1.035); Squamous Epithelial Cell,Urine 9 /hpf (0-4); UA Billing (MACRO vs. MICRO) MICRO; Urobilinogen,Urine <2.0 mg/dL (<2.0); WBC,Urine 3 /hpf (0-5)
--- NOTE | 2016-05-08 11:24 | P.PN ---
Subjective This is a 55-year-old patient who is evaluated and examined today on the fifth floor. Patient has a history of increased cough, congestion, shortness of breath with wheezing that started 3-4 days prior to be coming to the hospital. She is well known to our office. This patient recently had an incisional hernia repair in the hospital. Since going home she has been short of breath, also had some borderline elevated blood pressure. She also has an intermittent dry nonproductive cough therefore she came into the hospital. Her chest x-ray revealed a right lower lobe pneumonia. CT scan of the chest performed revealed basal pneumonia on the right side with postoperative changes in the abdomen. Upon a examination the patient is resting up in bed recently just got out of the shower she has been doing better today than previously. She has brought in her home CPAP machine and has been using it at night. Currently she is utilizing 2 L of supplemental oxygen via nasal cannula. Objective - Vital Signs Vital signs: Vital Signs Temp 98.2 F 05/08/16 07:00 Pulse 80 05/08/16 07:53 Resp 16 05/08/16 07:00 BP 168/77 05/08/16 07:00 Pulse Ox 91 L 05/08/16 07:36 Intake & Output 05/07/16 05/08/16 05/08/16 18:59 06:59 18:59 Intake Total 720 220 360 Balance 720 220 360 Weight 96.162 kg Intake: Oral 720 220 360 Other: Voiding Method Toilet Toilet Toilet # Voids 1 1 - Exam GENERAL EXAM: Alert, active, comfortable in no apparent distress. HEAD: Normocephalic. EYES: Normal reaction of pupils, equal size. NOSE: Clear with pink turbinates. THROAT: No erythema or exudates. NECK: No masses, no JVD. CHEST: No chest wall deformity. LUNGS: Equal air entry with bilateral fine inspiratory and expiratory wheezing and rhonchi. Lung sounds somewhat coarse CVS: S1 and S2 normal with no audible mumurs, regular rhythm. ABDOMEN: No hepatosplenomegaly, normal bowel sounds, no guarding or rigidity. EXTREMITIES: No edema noted, pedal pulses palpable. SKIN: No rashes CENTRAL NERVOUS SYSTEM: No focal deficits, tone is normal in all 4 extremities. - Labs CBC & Chem 7: 05/06/16 12:10 05/06/16 12:10 Labs: Abnormal Lab Results - Last 24 Hours (Table) 05/07/16 05/07/16 05/07/16 Range/Units 11:50 17:20 20:36 POC Glucose (mg/dL) 275 H 251 H 255 H (75-99) mg/dL Urine Appearance (Clear) Urine Protein (Negative) Urine Glucose (UA) (Negative) Urine Ketones (Negative) Ur Leukocyte Esterase (Negative) Ur Squamous Epith Cells (0-4) /hpf Urine Mucus (None) /hpf 05/08/16 05/08/16 Range/Units 07:32 07:33 POC Glucose (mg/dL) 172 H (75-99) mg/dL Urine Appearance Cloudy H (Clear) Urine Protein Trace H (Negative) Urine Glucose (UA) Trace H (Negative) Urine Ketones Trace H (Negative) Ur Leukocyte Esterase Trace H (Negative) Ur Squamous Epith Cells 9 H (0-4) /hpf Urine Mucus Moderate H (None) /hpf Assessment and Plan Plan: Assessment Right lower lobe pneumonia Acute asthma related to above Hypertension, hypertensive cardiovascular disease Mood disorder Elevated d-dimer likely related to postoperative status Obesity Obstructive sleep apnea Plan We will continue with supportive care and antibiotics breathing treatments as well as steroids. We will have the patient started to utilize incentive spirometer. We will maintain the patient on DVT and GI prophylaxis. We will continue to follow this clinical course closely, monitor labs and adjust treatment as necessary.
[2016-05-08 11:28] LABS: Glucose,Whole Blood 208 mg/dL (75-99)
--- NOTE | 2016-05-08 15:37 | P.PN ---
Subjective a 55-year-old female being seen sitting up on the edge of the bed with the attending states breathing feels slightly improved but continues to report having shortness of breath with exertion. Patient recently underwent an incisional hernia repair. Patient states since going home has been experiencing episodes of shortness of breath. The chest x-ray did show right lower lobe pneumonia. The CAT scan of the chest showed no evidence of a pulmonary emboli but did show evidence of pneumonia. Currently patients being followed by pulmonology service Objective - Vital Signs Vital signs: Vital Signs Temp 98.0 F 05/08/16 15:00 Pulse 91 05/08/16 15:00 Resp 16 05/08/16 15:00 BP 126/65 05/08/16 15:00 Pulse Ox 94 L 05/08/16 15:00 Intake & Output 05/07/16 05/08/16 05/08/16 18:59 06:59 18:59 Intake Total 720 220 720 Balance 720 220 720 Weight 96.162 kg Intake: Oral 720 220 720 Other: Voiding Method Toilet Toilet Toilet # Voids 1 1 2 - Exam physical exam 55-year-old female sitting up does not appear in any acute distress Lungs posterior diminished at the bases not able to appreciate any wheezing this morning Heart S1-S2 audible regular Abdomen soft nontender reports no nausea vomiting Extremities no edema no calf tenderness - Labs CBC & Chem 7: 05/06/16 12:10 05/06/16 12:10 Labs: Abnormal Lab Results - Last 24 Hours (Table) 05/07/16 05/07/16 05/08/16 Range/Units 17:20 20:36 07:32 POC Glucose (mg/dL) 251 H 255 H 172 H (75-99) mg/dL Urine Appearance (Clear) Urine Protein (Negative) Urine Glucose (UA) (Negative) Urine Ketones (Negative) Ur Leukocyte Esterase (Negative) Ur Squamous Epith Cells (0-4) /hpf Urine Mucus (None) /hpf 05/08/16 05/08/16 Range/Units 07:33 11:26 POC Glucose (mg/dL) 208 H (75-99) mg/dL Urine Appearance Cloudy H (Clear) Urine Protein Trace H (Negative) Urine Glucose (UA) Trace H (Negative) Urine Ketones Trace H (Negative) Ur Leukocyte Esterase Trace H (Negative) Ur Squamous Epith Cells 9 H (0-4) /hpf Urine Mucus Moderate H (None) /hpf Assessment and Plan Plan: impression present on admission shortness of breath suspect due to right lower lobe pneumonia and acute exacerbation of asthma elevated d-dimerthe CAT scan of the chest showed no evidence of a pulmonary embolipossibly postoperative changes accounting for nonspecific small fluid collection with a small amount adjacent air Severe COPD Chronic persistent asthma Mood disorder nonspecified fibromyalgia Esophageal reflux Chronic anemia Plan Continue recommendations by pulmonology Continue home meds as appropriate DVT and GI prophylaxis Further recommendations pending Continue antibiotics as ordered Solu-Medrol 40 IV every 12 The above dictated assessment and findings were discussed with dr leal . Impression and the plan of care have been dictated as directed. Nicolle Figueroa nurse practitioner acting as a scribe for dr leal
[2016-05-08] MEDS: LEVOFLOXACIN 500 MG TAB PO SCH (15:59)
[2016-05-08 17:03] LABS: Glucose,Whole Blood 189 mg/dL (75-99)
[2016-05-08 20:24] LABS: Glucose,Whole Blood 173 mg/dL (75-99)
[2016-05-08] MEDS: traZODone HCL 100 MG TAB PO SCH (21:29)
[2016-05-08] MEDS: FAMOTIDINE 20 MG TAB PO SCH (21:30)
[2016-05-09 07:27] LABS: Glucose,Whole Blood 147 mg/dL (75-99)
[2016-05-09] MEDS: FUROSEMIDE 20 MG TAB PO SCH (08:24)
[2016-05-09] MEDS: CYCLOBENZAPRINE 5 MG TAB PO SCH ×2 (08:24→21:24)
[2016-05-09] MEDS: HEPARIN SODIUM,PORCINE 5,000 UNIT/ML 1 ML VIAL SQ SCH ×2 (08:24→21:24)
[2016-05-09] MEDS: GABAPENTIN 100 MG CAP PO SCH ×3 (08:24→21:24)
[2016-05-09] MEDS: sulfaSALAzine 500 MG TAB PO SCH ×4 (08:25→21:24)
[2016-05-09] MEDS: POTASSIUM CHLORIDE ER 20 MEQ TAB.ER PO SCH ×3 (08:25→21:24)
[2016-05-09] MEDS: VENLAFAXINE HCL 75 MG TAB PO SCH ×2 (08:25→21:23)
[2016-05-09] MEDS: LOSARTAN 50 MG TAB PO SCH (08:25)
[2016-05-09] MEDS: methylPREDNISolone SOD SUCCI 40 MG/ML 1 ML VIAL IV SCH (08:26)
[2016-05-09] MEDS: LIDOCAINE 2% GEL 30 ML TUBE TOPICAL SCH ×2 (08:26→21:24)
[2016-05-09] MEDS: METHYLPHENIDATE HCL 10 MG TAB PO SCH ×2 (08:35→16:43)
[2016-05-09] MEDS: LORazepam 1 MG TAB PO SCH ×3 (08:35→21:21)
[2016-05-09] MEDS: IBUPROFEN 800 MG TAB PO SCH ×3 (08:35→21:22)
[2016-05-09] MEDS: HYDROcodone/APAP 10-325MG 1 EACH TAB PO SCH ×3 (08:36→21:23)
[2016-05-09] MEDS: INSULIN LISPRO (humaLOG) 300 UNIT/3 ML VIAL SQ SCH ×4 (08:37→21:24)
[2016-05-09] MEDS: IPRATROPIUM-ALBUTEROL 3 ML NEB INHALATION SCH ×4 (08:39→20:14)
[2016-05-09] MEDS: BUDESONIDE 1 MG/2 ML NEBU INHALATION SCH ×2 (08:39→20:15)
[2016-05-09] MEDS ORDERED: guaiFENesin SYRUP 100MG/5ML 200 MG/10 ML CUP PO PRN (11:09)
--- NOTE | 2016-05-09 11:10 | P.PN ---
Subjective This is a 55-year-old patient who is evaluated and examined today on the fifth floor. Patient has a history of increased cough, congestion, shortness of breath with wheezing that started 3-4 days prior to be coming to the hospital. She is well known to our office. This patient recently had an incisional hernia repair in the hospital. Since going home she has been short of breath, also had some borderline elevated blood pressure. She also has an intermittent dry nonproductive cough therefore she came into the hospital. Her chest x-ray revealed a right lower lobe pneumonia. CT scan of the chest performed revealed basal pneumonia on the right side with postoperative changes in the abdomen. Upon a examination the patient ambulating in the room. She states her breathing is getting better and has had coughing with scant sputum production . She has brought in her home CPAP machine and has been using it at night. Currently she is utilizing 2 L of supplemental oxygen via nasal cannula. Objective - Vital Signs Vital signs: Vital Signs Temp 96.9 F L 05/09/16 07:00 Pulse 88 05/09/16 08:55 Resp 16 05/09/16 07:00 BP 139/86 05/09/16 07:00 Pulse Ox 92 L 05/09/16 07:00 Intake & Output 05/08/16 05/09/16 05/09/16 18:59 06:59 18:59 Intake Total 720 530 360 Balance 720 530 360 Intake: Oral 720 530 360 Other: Voiding Method Toilet Toilet # Voids 1 1 - Exam GENERAL EXAM: Alert, active, comfortable in no apparent distress. HEAD: Normocephalic. EYES: Normal reaction of pupils, equal size. NOSE: Clear with pink turbinates. THROAT: No erythema or exudates. NECK: No masses, no JVD. CHEST: No chest wall deformity. LUNGS: Equal air entry with bilateral fine inspiratory and expiratory wheezing and rhonchi. Lung sounds somewhat coarse CVS: S1 and S2 normal with no audible mumurs, regular rhythm. ABDOMEN: No hepatosplenomegaly, normal bowel sounds, no guarding or rigidity. EXTREMITIES: No edema noted, pedal pulses palpable. SKIN: No rashes CENTRAL NERVOUS SYSTEM: No focal deficits, tone is normal in all 4 extremities. - Labs CBC & Chem 7: 05/06/16 12:10 05/06/16 12:10 Labs: Abnormal Lab Results - Last 24 Hours (Table) 05/08/16 05/08/16 05/08/16 Range/Units 11:26 17:02 20:19 POC Glucose (mg/dL) 208 H 189 H 173 H (75-99) mg/dL 05/09/16 Range/Units 07:26 POC Glucose (mg/dL) 147 H (75-99) mg/dL Assessment and Plan Plan: Assessment Right lower lobe pneumonia Acute asthma related to above Hypertension, hypertensive cardiovascular disease Mood disorder Elevated d-dimer likely related to postoperative status Obesity Obstructive sleep apnea Plan We will continue with supportive care and antibiotics breathing treatments as well as steroids. We'll add guaifenesin for her cough. We will have the patient continue to utilize incentive spirometer. We will maintain the patient on DVT and GI prophylaxis. We will continue to follow this clinical course closely, monitor labs and adjust treatment as necessary.
[2016-05-09 12:01] LABS: Glucose,Whole Blood 146 mg/dL (75-99)
--- NOTE | 2016-05-09 15:15 | P.PN ---
Subjective 55-year-old female being seen this morning sitting up in bed. Patient has been up ambulating from the bed to the bathroom states feels less short of breath's morning patient is able to use the incentive spirometer can achieve thousand needs much coaching. The patient currently is on room air sats are documented 93% patient is afebrile did discuss the discharge plan with the patient anticipated discharge within the next 24 hours if there is no new clinical findings Objective - Vital Signs Vital signs: Vital Signs Temp 96.9 F L 05/09/16 07:00 Pulse 84 05/09/16 12:38 Resp 16 05/09/16 07:00 BP 139/86 05/09/16 07:00 Pulse Ox 92 L 05/09/16 07:00 Intake & Output 05/08/16 05/09/16 05/09/16 18:59 06:59 18:59 Intake Total 720 530 360 Balance 720 530 360 Intake: Oral 720 530 360 Other: Voiding Method Toilet Toilet # Voids 1 1 - Exam physical exam 55-year-old female sitting up does not appear in any acute distress has been able to ambulate from the bed to the bathroom without exertional dyspnea states breathing feels slightly improved Lungs posterior diminished at the bases not able to appreciate any wheezing on room air no cough noted no conversational dyspnea Heart S1-S2 audible regular Abdomen soft nontender reports no nausea vomiting Extremities no edema no calf tenderness - Labs CBC & Chem 7: 05/06/16 12:10 05/06/16 12:10 Labs: Abnormal Lab Results - Last 24 Hours (Table) 05/08/16 05/08/16 05/09/16 Range/Units 17:02 20:19 07:26 POC Glucose (mg/dL) 189 H 173 H 147 H (75-99) mg/dL 05/09/16 Range/Units 11:59 POC Glucose (mg/dL) 146 H (75-99) mg/dL Assessment and Plan Plan: impression present on admission shortness of breath suspect due to right lower lobe pneumonia and acute exacerbation of asthma elevated d-dimerthe CAT scan of the chest showed no evidence of a pulmonary emboli possibly postoperative changes accounting for nonspecific small fluid collection with a small amount adjacent air Severe COPD Chronic persistent asthma Mood disorder nonspecified fibromyalgia Esophageal reflux Chronic anemia Morbid obesity BMI 41 Obstructive sleep apnea Elevated d-dimer likely related to postoperative status no evidence of a pulmonary emboli Plan Continue recommendations by pulmonology Continue home meds as appropriate DVT and GI prophylaxis Further recommendations pending Continue antibiotics as ordered Prednisone 40 daily will taper an outpatient setting Anticipated discharge within the next 24 hours The above dictated assessment and findings were discussed with dr leal . Impression and the plan of care have been dictated as directed. Nicolle Figueroa nurse practitioner acting as a scribe for dr leal
[2016-05-09] MEDS: LEVOFLOXACIN 500 MG TAB PO SCH (16:42)
[2016-05-09 18:10] LABS: Glucose,Whole Blood 93 mg/dL (75-99)
[2016-05-09 21:02] LABS: Glucose,Whole Blood 110 mg/dL (75-99)
[2016-05-09] MEDS: traZODone HCL 100 MG TAB PO SCH (21:23)
[2016-05-09] MEDS: FAMOTIDINE 20 MG TAB PO SCH (21:23)
[2016-05-10 07:18] LABS: Glucose,Whole Blood 89 mg/dL (75-99)
[2016-05-10 07:58] VITALS: BP 104/57; RESP 16; TEMP 96.1
[2016-05-10] MEDS ORDERED: predniSONE 20 MG TAB PO SCH (09:00)
[2016-05-10] MEDS: IPRATROPIUM-ALBUTEROL 3 ML NEB INHALATION SCH ×2 (09:12→13:05)
[2016-05-10] MEDS: BUDESONIDE 1 MG/2 ML NEBU INHALATION SCH (09:12)
[2016-05-10] MEDS: LORazepam 1 MG TAB PO SCH (09:31)
[2016-05-10] MEDS: METHYLPHENIDATE HCL 10 MG TAB PO SCH (09:31)
[2016-05-10] MEDS: CYCLOBENZAPRINE 5 MG TAB PO SCH (09:33)
[2016-05-10 09:34] VITALS: PULSE 80
[2016-05-10] MEDS: LOSARTAN 50 MG TAB PO SCH (09:34)
[2016-05-10] MEDS: HEPARIN SODIUM,PORCINE 5,000 UNIT/ML 1 ML VIAL SQ SCH (09:35)
[2016-05-10] MEDS: GABAPENTIN 100 MG CAP PO SCH (09:35)
[2016-05-10] MEDS: FUROSEMIDE 20 MG TAB PO SCH (09:35)
[2016-05-10] MEDS: POTASSIUM CHLORIDE ER 20 MEQ TAB.ER PO SCH (09:36)
[2016-05-10] MEDS: sulfaSALAzine 500 MG TAB PO SCH ×2 (09:36→13:37)
[2016-05-10] MEDS: VENLAFAXINE HCL 75 MG TAB PO SCH (09:36)
[2016-05-10] MEDS: HYDROcodone/APAP 10-325MG 1 EACH TAB PO SCH (09:37)
[2016-05-10] MEDS: IBUPROFEN 800 MG TAB PO SCH (09:39)
[2016-05-10] MEDS: INSULIN LISPRO (humaLOG) 300 UNIT/3 ML VIAL SQ SCH ×2 (09:40→12:14)
[2016-05-10] MEDS: LIDOCAINE 2% GEL 30 ML TUBE TOPICAL SCH (09:49)
[2016-05-10 11:12] LABS: Glucose,Whole Blood 104 mg/dL (75-99)
--- NOTE | 2016-05-10 11:24 | P.DS ---
Providers Date of admission: 05/06/16 14:29 Expected date of discharge: 05/10/16 Attending physician: Herman Leal Consults: Dr. Strickland pulmonology Primary care physician: Herman Leal [facility] Course: 55-year-old female presented on the day of admission to the emergency room via the EMS system after patient stated that she was experiencing shortness of breath feverish with a cough not able to cough up any secretions. Patient states that she has been short of breath past 4 days and was recently released from the hospital after patient was recuperating from a incisional hernia repair that was done on the day of admission returned with a chief complaint of shortness of breath. EMS noted the patient's blood pressure to be elevated 170/80. Patient was stating that she did not take her home medication because she felt too weak and felt nauseated. Subsequently the patient was admitted to the services of the attending with a pulmonology consultation requested patient was started on IV Solu-Medrol aerosol bronchodilators patient was being treated this hospitalization for right lower lobe pneumonia with an acute exacerbation of asthma. Patient did have an elevated d-dimer which showed no evidence of a pulmonary emboli after a CAT scan of the chest was obtained. It did show possible postoperative changes accounting for a nonspecific small fluid collection. Over the course of the hospitalization the symptoms improved. Patient did not qualify for home O2. Patient was able to ambulate from the bed to the bathroom in the hallway without difficulty and without shortness of breath on the day of discharge the temp is 96.1. On admission the temp was 101.6 Was no white count on the 12th was 4.3 subsequently the patient was discharged home on the 16 impression discharge diagnosis impression present on admission shortness of breath suspect due to right lower lobe pneumonia and acute exacerbation of asthma elevated d-dimerthe CAT scan of the chest showed no evidence of a pulmonary emboli possibly postoperative changes accounting for nonspecific small fluid collection with a small amount adjacent air Severe COPD Chronic persistent asthma Mood disorder nonspecified fibromyalgia Esophageal reflux Chronic anemia Morbid obesity BMI 41 Obstructive sleep apnea Elevated d-dimer likely related to postoperative status no evidence of a pulmonary emboli The above dictated assessment and findings were discussed with dr leal . Impression and the plan of care have been dictated as directed. Nicolle Figueroa nurse practitioner acting as a scribe for dr leal Patient Condition at Discharge: Stable Plan - Discharge Summary New Discharge Prescriptions: Levofloxacin [Levaquin] 500 mg PO Q24H #7 tab methylPREDNISolone Dose Pack [Medrol Dose Pack] 4 mg PO DIRECTED #21 package Discharge Medication List Methylphenidate HCl [Ritalin] 20 mg PO BID 12/03/13 [History] Potassium Chloride [Potassium Chloride ER] 20 meq PO TID 12/03/13 [History] Venlafaxine HCl [Effexor] 75 mg PO BID 12/03/13 [History] sulfaSALAzine [Azulfidine] 1,000 mg PO QID 12/03/13 [History] Furosemide [Lasix] 20 mg PO DAILY 01/19/15 [History] Losartan Potassium 100 mg PO QAM 01/19/15 [History] traZODone HCL [Desyrel] 200 mg PO HS 01/19/15 [History] Gabapentin [Neurontin] 100 mg PO TID 05/10/15 [History] Ibuprofen [Motrin] 800 mg PO TID 05/10/15 [History] Albuterol Nebulized [Ventolin Nebulized] 2.5 mg INHALATION RT-QID PRN 07/05/15 [ History] HYDROcodone/APAP 10-325MG [[place] 10-325] 1 tab PO TID 12/07/15 [History] Budesonide [Pulmicort] 0.25 mg INHALATION RT-BID PRN 04/27/16 [History] Cyclobenzaprine [Flexeril] 5 mg PO Q12H 04/27/16 [History] LORazepam [Lorazepam] 1 mg PO TID 04/27/16 [History] Lidocaine 2% Gel [Xylocaine Jelly 2%] 1 applic TOPICAL BID 04/30/16 [History] Ranitidine HCl [Zantac] 75 mg PO DAILY PRN 04/30/16 [History] Tobramycin 0.3% Ophth Oint [Tobrex 0.3% Ophth Oint] 1 applic RIGHT EYE TID 7 Days 04/30/16 [Rx] diphenhydrAMINE [Benadryl] 50 mg PO HS PRN #5 capsule 04/30/16 [Rx] predniSONE 10 mg PO BID 04/30/16 [History] Levofloxacin [Levaquin] 500 mg PO Q24H #7 tab 05/10/16 [Rx] methylPREDNISolone Dose Pack [Medrol Dose Pack] 4 mg PO DIRECTED #21 package 05/10/16 [Rx] Follow up Appointment(s)/Referral(s): Herman Leal MD [Primary Care Provider] - 1-2 days Zhen Strickland MD [STAFF PHYSICIAN] - 1 Week Activity/Diet/Wound Care/Special Instructions: [phone] Discharge Disposition: HOME WITH HOME HEALTH SERVICES
--- NOTE | 2016-05-10 12:15 | PN ---
Caitlin Ambriz who is a 55-year-old female who came into hospital with acute COPD exacerbation. She had a recent incisional hernia surgery. Some aches and pains in the lower abdomen is present. Patient is clinically doing better in terms of respiratory status, off of oxygen now. Sats are mid 90s, on 2 L are still 94%. Blood pressure 104/57, respiratory rate 16, pulse 78, temperature 98.6, saturation 95% to 96%. HEENT: Unremarkable. NECK: Supple. LUNGS: Good air entry bilaterally without significant rales, rhonchi, or rub. HEART: Regular rate and rhythm. S1 and S2 audible. ABDOMEN: Soft. No rebound or rigidity. EXTREMITIES: +1 peripheral pulses. NEUROLOGICAL EXAMINATION: Otherwise, awake and alert. IMPRESSION: 1. Acute chronic obstructive pulmonary disease exacerbation. 2. Right lower lobe pneumonia. 3. Acute on chronic persistent asthma. 4. Hypertension, hypertensive cardiovascular disease. 5. Elevated D-dimer likely a postoperative status. 6. Obstructive sleep apnea. Patient has been advised to continue to use the CPAP machine. Reevaluate in office setting post discharge. Will follow
== END 2016-05-10 15:27 | disposition home health service (06) | DRG 190 ==
LOC: EC 11:55 → 5MS5E 14:29
PROVIDERS: ADMIT Family Medicine; ATTEND Family Medicine
DX: J44.0 Chronic obstructive pulmonary disease with (acute) lower respiratory infection (principal); J18.9 Pneumonia, unspecified organism; Z68.41 Body mass index [BMI] 40.0-44.9, adult; E44.0 Moderate protein-calorie malnutrition; I11.9 Hypertensive heart disease without heart failure; J45.901 Unspecified asthma with (acute) exacerbation; K51.90 Ulcerative colitis, unspecified, without complications; E66.01 Morbid (severe) obesity due to excess calories; G47.33 Obstructive sleep apnea (adult) (pediatric); J44.1 Chronic obstructive pulmonary disease with (acute) exacerbation; E87.6 Hypokalemia; E03.9 Hypothyroidism, unspecified; K21.9 Gastro-esophageal reflux disease without esophagitis; D64.9 Anemia, unspecified; G47.00 Insomnia, unspecified; R00.0 Tachycardia, unspecified; G47.30 Sleep apnea, unspecified; R53.1 Weakness; R11.0 Nausea; M79.7 Fibromyalgia; N32.81 Overactive bladder; F90.9 Attention-deficit hyperactivity disorder, unspecified type; F41.9 Anxiety disorder, unspecified; F32.9 Major depressive disorder, single episode, unspecified; F39 Unspecified mood [affective] disorder; M19.90 Unspecified osteoarthritis, unspecified site; Z86.69 Personal history of other diseases of the nervous system and sense organs; Z82.1 Family history of blindness and visual loss; Z90.710 Acquired absence of both cervix and uterus; Z82.49 Family history of ischemic heart disease and other diseases of the circulatory system; Z96.653 Presence of artificial knee joint, bilateral; Z98.41 Cataract extraction status, right eye; Z79.899 Other long term (current) drug therapy; Z87.19 Personal history of other diseases of the digestive system; Z87.01 Personal history of pneumonia (recurrent); Z79.1 Long term (current) use of non-steroidal anti-inflammatories (NSAID); Z79.891 Long term (current) use of opiate analgesic; Z79.51 Long term (current) use of inhaled steroids; Z79.52 Long term (current) use of systemic steroids; Z98.890 Other specified postprocedural states; Z90.49 Acquired absence of other specified parts of digestive tract; Z80.8 Family history of malignant neoplasm of other organs or systems
CPT/HCPCS: 36415; 71020; 71275; 80053; 81001; 82550; 82553; 83735; 83880; 84484; 85025; 85379; 85610; 85730; 87040; 87502; 93005; 94640; 94760; 96360; 96361; 99291

== ENCOUNTER 2016-06-04 12:19 | Emergency (ER) | payer MEDICARE ==
[2016-06-04 13:00] VITALS: BP 127/87; PULSE 99; RESP 19
[2016-06-04] MEDS ORDERED: PROPARACAINE 0.5% OPHTH DROPS 15 ML BTL RIGHT EYE STA (13:54)
--- NOTE | 2016-06-04 13:54 | ED ---
ENT HPI - General Chief complaint: ENT Stated complaint: Eye Problems Time Seen by Provider: 06/04/16 13:17 Source: patient, RN notes reviewed, old records reviewed Mode of arrival: ambulatory - History of Present Illness Initial comments: Patient is a 56-year-old female chief complaint of right eye redness and swelling and drainage for approximately 2 days. Patient reports that she saw her leasing agent and Byron Gutierrez earlier in the week and had no problems. Patient states that she wears glasses. Patient states that it started in her right eye now starting to progress to her left today. Patient denies any fever or chills. She reports that she has difficulty with her vision in her right eye. She states that it was a gradual onset. Patient denies wearing any contacts.Patient denies any recent fever, chills, shortness of breath, chest pain, back pain, abdominal pain, nausea vomiting, numbness or tingling, dysuria or hematuria, constipation or diarrhea, headaches or or any other current symptoms - Related Data Home Medications Medication Instructions Recorded Confirmed Methylphenidate HCl [Ritalin] 20 mg PO BID 12/03/13 05/06/16 Potassium Chloride [Potassium 20 meq PO TID 12/03/13 05/06/16 Chloride ER] Venlafaxine HCl [Effexor] 75 mg PO BID 12/03/13 05/06/16 sulfaSALAzine [Azulfidine] 1,000 mg PO QID 12/03/13 05/06/16 Furosemide [Lasix] 20 mg PO DAILY 01/19/15 05/06/16 Losartan Potassium 100 mg PO QAM 01/19/15 05/06/16 traZODone HCL [Desyrel] 200 mg PO HS 01/19/15 05/06/16 Gabapentin [Neurontin] 100 mg PO TID 05/10/15 05/06/16 Ibuprofen [Motrin] 800 mg PO TID 05/10/15 05/06/16 Albuterol Nebulized [Ventolin 2.5 mg INHALATION RT-QID PRN 07/05/15 05/06/16 Nebulized] HYDROcodone/APAP 10-325MG [[place] 1 tab PO TID 12/07/15 05/06/16 10-325] Budesonide [Pulmicort] 0.25 mg INHALATION RT-BID PRN 04/27/16 05/06/16 Cyclobenzaprine [Flexeril] 5 mg PO Q12H 04/27/16 05/06/16 LORazepam [Lorazepam] 1 mg PO TID 04/27/16 05/06/16 Lidocaine 2% Gel [Xylocaine Jelly 1 applic TOPICAL BID 04/30/16 05/06/16 2%] Ranitidine HCl [Zantac] 75 mg PO DAILY PRN 04/30/16 05/06/16 predniSONE 10 mg PO BID 04/30/16 05/06/16 Previous Rx's Medication Instructions Recorded Tobramycin 0.3% Ophth Oint [Tobrex 1 applic RIGHT EYE TID 7 Days 04/30/16 0.3% Ophth Oint] diphenhydrAMINE [Benadryl] 50 mg PO HS PRN #5 capsule 04/30/16 Levofloxacin [Levaquin] 500 mg PO Q24H #7 tab 05/10/16 methylPREDNISolone Dose Pack 4 mg PO DIRECTED #21 package 05/10/16 [Medrol Dose Pack] Allergies Allergy/AdvReac Type Severity Reaction Status Date / Time nickel Allergy allergy Verified 06/04/16 12:59 test lisinopril AdvReac Itching,ap Verified 06/04/16 12:59 h,headache "amerchol" Allergy per Uncoded 06/04/16 12:59 allergy test gold Allergy allergy Uncoded 06/04/16 12:59 rash Review of Systems ROS Statement: Those systems with pertinent positive or pertinent negative responses have been documented in the HPI. ROS Other: All systems not noted in ROS Statement are negative. Past Medical History Past Medical History: Asthma, Chest Pain / Angina, COPD, Eye Disorder, Fibromyalgia, GERD/Reflux, Hypertension, Osteoarthritis (OA), Pneumonia, Sleep Apnea/CPAP/BIPAP, Thyroid Disorder Additional Past Medical History / Comment(s): colitis, hx anemia, "overactive bladder", insomnia, RT EYE CATARACT, ULCERATIVE COLITIS History of Any Multi-Drug Resistant Organisms: None Reported Past Surgical History: Bowel Resection, Breast Surgery, Hernia Repair, Hysterectomy, Joint Replacement Additional Past Surgical History / Comment(s): RT BREAST-BENIGN TUMOR REMOVED, DANYEL KNEE REPLACEMENT, COLONOSCOPY. Past Anesthesia/Blood Transfusion Reactions: Previous Problems w/ Anesthesia, Motion Sickness Additional Past Anesthesia/Blood Transfusion Reaction / Comment(s): -seizure- after surgery (caused by severe sleep apnea per pt), Past Psychological History: ADD/ADHD, Anxiety, Depression Additional Psychological History / Comment(s): . Smoking Status: Never smoker Past Alcohol Use History: None Reported Past Drug Use History: None Reported - Past Family History Father Family Medical History: Cancer Additional Family Medical History / Comment(s): Father at age 70 of a brain tumor Mother Family Medical History: Myocardial Infarction ([place]) Additional Family Medical History / Comment(s): Legally blind. Mother at age 53 yrs. Sister(s) Family Medical History: Cancer General Exam - General Exam Comments Initial Comments: Pleasant 56-year-old female. No distress. General appearance: alert, in no apparent distress Head exam: Present: atraumatic, normocephalic, normal inspection Eye exam: Present: normal appearance, PERRL, EOMI, conjunctival injection ( Right eye with significant conjunctival injection. Eyes continuing to water. Pain with light. ). Absent: scleral icterus, periorbital swelling ENT exam: Present: normal exam, mucous membranes moist, TM's normal bilaterally Neck exam: Present: normal inspection. Absent: tenderness, meningismus, lymphadenopathy Respiratory exam: Present: normal lung sounds bilaterally. Absent: respiratory distress, wheezes, rales, rhonchi, stridor Cardiovascular Exam: Present: regular rate, normal rhythm, normal heart sounds. Absent: systolic murmur, diastolic murmur, rubs, gallop, clicks GI/Abdominal exam: Present: soft, normal bowel sounds. Absent: distended, tenderness, guarding, rebound, rigid Extremities exam: Present: normal inspection, full ROM, normal capillary refill. Absent: tenderness, pedal edema, joint swelling, calf tenderness Back exam: Present: normal inspection Neurological exam: Present: alert, oriented X3, CN II-XII intact Psychiatric exam: Present: normal affect, normal mood Skin exam: Present: warm, dry, intact, normal color. Absent: rash Course Vital Signs 06/04/16 06/04/16 06/04/16 12:53 13:20 14:26 Temperature 100.1 F H 98.7 F Pulse Rate 99 Respiratory 19 Rate Blood Pressure 127/87 O2 Sat by Pulse 95 Oximetry Medical Decision Making - Medical Decision Making Patient is a 56-year-old female chief complaint of 2 days of right eye significant swelling and redness. Patient reports that she is unable to see out of the right eye. She states that she feels as if the pain is maybe radiating a little to the left. Patient states that she did see her leasing agent molding machine tender last week and had no problems. Patient states that her eye is painful with bright lights. Intraocular pressure of the right eye is 24. Left eye is 18. Patient's visual acuity of the right eye is 20/200. Left eye is 20/40. Patient reports that she woke up with a crusty. At this time placing a call to Dr. Abdullahi to have the patient seen by her leasing agent. Patient also complaining of a pruritic rash that she's having the past he is continue with hydrocortisone cream. Dr. Barth want to see patient in office right away, patient agrees to treatment plan and will going there right away. Disposition Clinical Impression: Conjunctivitis, right eye, Increased intraocular pressure Disposition: HOME SELF-CARE Condition: Stable Additional Instructions: Go directly to Dr. Barth's office. Referrals: Herman Junior MD [Primary Care Provider] - 1-2 days Time of Disposition: 14:21
[2016-06-04] MEDS ORDERED: TOBRAMYCIN 0.3% OPHTH DROPS 5 ML BTL RIGHT EYE STA (14:01)
[2016-06-04] MEDS ORDERED: diphenhydrAMINE 25 MG CAP PO STA (14:15)
[2016-06-04 14:27] VITALS: TEMP 98.7
== END 2016-06-04 14:35 | disposition home or self-care (01) ==
LOC: EC 12:19
DX: H10.9 Unspecified conjunctivitis (principal); H40.051 Ocular hypertension, right eye; M79.7 Fibromyalgia; K21.9 Gastro-esophageal reflux disease without esophagitis; I10 Essential (primary) hypertension; M19.90 Unspecified osteoarthritis, unspecified site; F32.9 Major depressive disorder, single episode, unspecified; F41.9 Anxiety disorder, unspecified; F90.9 Attention-deficit hyperactivity disorder, unspecified type; Z79.891 Long term (current) use of opiate analgesic; Z79.1 Long term (current) use of non-steroidal anti-inflammatories (NSAID); Z79.899 Other long term (current) drug therapy; Z88.8 Allergy status to other drugs, medicaments and biological substances; Z91.048 Other nonmedicinal substance allergy status
CPT/HCPCS: 99283

== ENCOUNTER 2016-09-13 12:24 | Emergency (ER) | payer MEDICARE ==
[2016-09-13 12:36] VITALS: BP 116/75; PULSE 98; RESP 16; TEMP 99.8
[2016-09-13] MEDS ORDERED: predniSONE 50 MG TAB PO STA (12:51)
[2016-09-13] MEDS ORDERED: FAMOTIDINE 20 MG TAB PO STA (12:52)
--- NOTE | 2016-09-13 12:54 | ED ---
Skin/Abscess/FB HPI - General Chief complaint: Skin/Abscess/Foreign Body Stated complaint: rash Time Seen by Provider: 09/13/16 12:40 Source: patient, RN notes reviewed Mode of arrival: ambulatory Limitations: no limitations - History of Present Illness Initial comments: Patient is 56-year-old female presents to the emergency room evaluation rash. Patient states she's had a rash over her arms and legs for the past 4 weeks. Patient states the rash did subside on her legs. Patient states the rash is still on her bilateral arms. Patient states she has been taking Benadryl and applying "anti-itch" cream to the area with little relief of symptoms. Patient denies fevers or chills. Patient denies new detergents, body lotions, shampoos. Patient denies any new pets in the household. Patient denies any new plants in the household. Patient states that she has an appointment with her primary care provider on 09/27/16. Patient states that she is here picking up a friend and thought she should be evaluated while she was here. - Related Data Home Medications Medication Instructions Recorded Confirmed Methylphenidate HCl [Ritalin] 20 mg PO BID 12/03/13 09/13/16 Potassium Chloride [Potassium 20 meq PO TID 12/03/13 09/13/16 Chloride ER] Venlafaxine HCl [Effexor] 75 mg PO BID 12/03/13 09/13/16 sulfaSALAzine [Azulfidine] 1,000 mg PO QID 12/03/13 09/13/16 Furosemide [Lasix] 20 mg PO DAILY 01/19/15 09/13/16 Losartan Potassium 100 mg PO QAM 01/19/15 09/13/16 traZODone HCL [Desyrel] 200 mg PO HS 01/19/15 09/13/16 Gabapentin [Neurontin] 100 mg PO TID 05/10/15 09/13/16 Ibuprofen [Motrin] 800 mg PO TID 05/10/15 09/13/16 Albuterol Nebulized [Ventolin 2.5 mg INHALATION RT-QID PRN 07/05/15 09/13/16 Nebulized] HYDROcodone/APAP 10-325MG [[place] 1 tab PO TID 12/07/15 09/13/16 10-325] Cyclobenzaprine [Flexeril] 5 mg PO Q12H 04/27/16 09/13/16 LORazepam [Lorazepam] 1 mg PO TID 04/27/16 09/13/16 Ranitidine HCl [Zantac] 75 mg PO DAILY PRN 04/30/16 09/13/16 Previous Rx's Medication Instructions Recorded Tobramycin 0.3% Ophth Oint [Tobrex 1 applic RIGHT EYE TID 7 Days 04/30/16 0.3% Ophth Oint] diphenhydrAMINE [Benadryl] 50 mg PO HS PRN #5 capsule 04/30/16 Levofloxacin [Levaquin] 500 mg PO Q24H #7 tab 05/10/16 Famotidine [Pepcid] 20 mg PO DAILY #5 tablet 09/13/16 predniSONE 50 mg PO DAILY #5 tablet 09/13/16 Allergies Allergy/AdvReac Type Severity Reaction Status Date / Time nickel Allergy allergy Verified 09/13/16 12:34 test lisinopril AdvReac Itching,ap Verified 09/13/16 12:34 h,headache "amerchol" Allergy per Uncoded 09/13/16 12:34 allergy test gold Allergy allergy Uncoded 09/13/16 12:34 rash Review of Systems ROS Statement: Those systems with pertinent positive or pertinent negative responses have been documented in the HPI. ROS Other: All systems not noted in ROS Statement are negative. Past Medical History Past Medical History: Asthma, Chest Pain / Angina, COPD, Eye Disorder, Fibromyalgia, GERD/Reflux, Hypertension, Osteoarthritis (OA), Pneumonia, Sleep Apnea/CPAP/BIPAP, Thyroid Disorder Additional Past Medical History / Comment(s): colitis, hx anemia, "overactive bladder", insomnia, RT EYE CATARACT, ULCERATIVE COLITIS History of Any Multi-Drug Resistant Organisms: None Reported Past Surgical History: Bowel Resection, Breast Surgery, Hernia Repair, Hysterectomy, Joint Replacement Additional Past Surgical History / Comment(s): RT BREAST-BENIGN TUMOR REMOVED, DANYEL KNEE REPLACEMENT, COLONOSCOPY. Past Anesthesia/Blood Transfusion Reactions: Previous Problems w/ Anesthesia, Motion Sickness Additional Past Anesthesia/Blood Transfusion Reaction / Comment(s): -seizure- after surgery (caused by severe sleep apnea per pt), Past Psychological History: ADD/ADHD, Anxiety, Depression Smoking Status: Never smoker Past Alcohol Use History: None Reported Past Drug Use History: None Reported - Past Family History Father Family Medical History: Cancer Additional Family Medical History / Comment(s): Father at age 70 of a brain tumor Mother Family Medical History: Myocardial Infarction ([place]) Additional Family Medical History / Comment(s): Legally blind. Mother at age 53 yrs. Sister(s) Family Medical History: Cancer General Exam - General Exam Comments Initial Comments: Sitting in exam room, no acute distress. Limitations: no limitations General appearance: alert, in no apparent distress Head exam: Present: atraumatic, normocephalic, normal inspection Eye exam: Present: normal appearance ENT exam: Present: normal exam Neck exam: Present: normal inspection Respiratory exam: Present: normal lung sounds bilaterally. Absent: respiratory distress Cardiovascular Exam: Present: regular rate, normal rhythm, normal heart sounds Extremities exam: Present: normal inspection Back exam: Present: normal inspection Neurological exam: Present: alert, oriented X3, CN II-XII intact, normal gait Psychiatric exam: Present: normal affect, normal mood Skin exam: Present: warm, dry, normal color, rash (erythematous slightly raised macular lesions over bilateral forearms) Course Vital Signs 09/13/16 12:34 Temperature 99.8 F H Pulse Rate 98 Respiratory 16 Rate Blood Pressure 116/75 O2 Sat by Pulse 91 L Oximetry Medical Decision Making - Medical Decision Making Patient is a 56-year-old female presents emergency room for evaluation of rash. Rash consistent with either urticaria or contact dermatitis. Patient will be started on prednisone and Pepcid and advised to follow-up with her primary care provider for reevaluation. Patient states she understands everything that was discussed with her. Return parameters discussed. Disposition Clinical Impression: Contact dermatitis Disposition: HOME SELF-CARE Condition: Good Instructions: Contact Dermatitis (ED) Additional Instructions: Take medications as directed. Take Benadryl as needed every 4-6 hours. Please follow up with primary care provider in 1-2 days. If any new symptom arises or symptoms worsen, return to ER as soon as possible. Prescriptions: Famotidine [Pepcid] 20 mg PO DAILY #5 tablet predniSONE 50 mg PO DAILY #5 tablet Referrals: Herman Junior MD [Primary Care Provider] - 1-2 days Time of Disposition: 13:06
== END 2016-09-13 13:11 | disposition home or self-care (01) ==
LOC: EC 12:24
DX: L25.9 Unspecified contact dermatitis, unspecified cause (principal); I10 Essential (primary) hypertension; E07.9 Disorder of thyroid, unspecified; M19.90 Unspecified osteoarthritis, unspecified site; M79.7 Fibromyalgia; F32.9 Major depressive disorder, single episode, unspecified; F41.9 Anxiety disorder, unspecified; Z96.653 Presence of artificial knee joint, bilateral; Z79.1 Long term (current) use of non-steroidal anti-inflammatories (NSAID); Z79.899 Other long term (current) drug therapy; Z88.8 Allergy status to other drugs, medicaments and biological substances; Z91.048 Other nonmedicinal substance allergy status
CPT/HCPCS: 99282; J7512

== ENCOUNTER → 2017-05-13 | Outpatient (CLI) | payer MEDICARE ==
--- NOTE | 2017-05-13 12:28 | XR ---
EXAMINATION TYPE: XR cervical spine limited DATE OF EXAM: 05/13/2017 COMPARISON: 04/12/2011 HISTORY: Pain TECHNIQUE: Four views are submitted. FINDINGS: The odontoid is intact. There are no compression deformities. The prevertebral soft tissue structur es are within normal limits. Hypertrophic and degenerative change C4-5 and C5-C6 with facet arthropa thy and posterior spondylosis. Findings are mildly progressed from previous exam. IMPRESSION: 1. Degenerative disc disease with posterior spondylosis and hypertrophic changes C4-5 and C5-6. There may be canal stenosis at these levels and correlation with MRI suggested.
--- NOTE | 2017-05-13 15:05 | XR ---
EXAMINATION TYPE: XR knee complete bilateral DATE OF EXAM: 05/13/2017 COMPARISON: NONE HISTORY: Pain TECHNIQUE: 3 views are submitted laterally. FINDINGS: There is postsurgical change bilaterally which appears intact. No acute fracture. IMPRESSION: 1. Postsurgical changes with no acute process.
== END | disposition home or self-care (01) ==
LOC: RADXRMAIN 11:50
PROVIDERS: ATTEND Family Medicine
DX: M50.321 Other cervical disc degeneration at C4-C5 level (principal); M47.812 Spondylosis without myelopathy or radiculopathy, cervical region; Z98.890 Other specified postprocedural states
CPT/HCPCS: 72040

== ENCOUNTER → 2018-02-14 | Outpatient (CLI) | payer MEDICARE ==
--- NOTE | 2018-02-14 08:10 | MR ---
EXAMINATION TYPE: MR lumbar spine wo con DATE OF EXAM: 02/14/2018 6:43 AM COMPARISON: NONE HISTORY: Low back pain Multiplanar, MultiSpin echo imaging of the lumbar spine was performed. L1-L2: Normal disc appearance without desiccation. No herniation, protrusion or disc bulging. No ca nal stenosis is present. Foramina are patent bilaterally. L2-L3: Normal disc appearance without desiccation. No herniation, protrusion or disc bulging. No ca nal stenosis is present. Foramina are patent bilaterally. L3-L4: Mild disc desiccation noted. Mild posterior disc bulge. No evidence of herniation protrusion o r central stenosis. Visualized foramina are patent bilaterally. L4-L5: Mild disc desiccation noted. Mild posterior disc bulge. No evidence of herniation protrusion o r central stenosis. Visualized foramina are patent bilaterally. L5-S1: Moderate disc desiccation. Posterior disc bulge mildly effaces the ventral thecal sac. Ventral and dorsal spondylosis. No evidence for central stenosis. Facet joint arthropathy resulting in bilat eral foraminal encroachment. Degenerative endplate marrow change. Lumbar segments are intact. No paraspinal masses are identified. Conus medullaris has a normal appe arance. IMPRESSION: 1. Degenerative disc disease as discussed. 2. Mild disc bulging is noted.
== END ==
LOC: RADMRIMAIN 06:04
PROVIDERS: ATTEND Psychiatry & Neurology Neurology
DX: M51.26 Other intervertebral disc displacement, lumbar region (principal); M51.36 Other intervertebral disc degeneration, lumbar region
CPT/HCPCS: 72148

== ENCOUNTER 2018-05-08 08:02 | Day surgery (SDC) | payer MEDICARE ==
[2018-05-05 13:34] VITALS: BMI 36.4
[~2018-05-08 08:02] MED LIST changes: -BUPIVACAIN-EPI 0.25%-1:200,000 30 ML VIAL SQ ONE; -DEXAMETHASONE SOD PHOSPHATE 10 MG/ML 1 ML VIAL IV ONE; -GLYCOPYRROLATE 0.2 MG/ML 2 ML VIAL ONE; -HEPARIN SODIUM,PORCINE 5,000 UNIT/ML 1 ML VIAL SQ ONE; -HYDROCORTISONE SUCCINATE 100 MG/2 ML VIAL ONE; -HYDROcodone/APAP 7.5-325MG 1 EACH TAB PO ONE; -HYDROmorphone (PF) 1 MG/ML ONE; -LACTATED RINGERS 1,000 ML IV ONE; -LIDOCAINE 1% 20 ML VIAL (10MG/ML) FOR IV START INTRADERMA ONE; +LIDOCAINE 1% 20 ML VIAL (10MG/ML) FOR IV START INTRADERMA PRN; -LIDOCAINE 1% INJ 10MG/ML (20 ML MDV) ONE; -METOPROLOL TARTRATE 5 MG/5 ML VIAL IVP ONE; -MIDAZOLAM 2 MG/2 ML VIAL IV PRN; -MIDAZOLAM 2 MG/2 ML VIAL ONE; -NEOSTIGMINE 1 MG/ML 10 ML VIAL ONE; -ONDANSETRON 4 MG/2 ML VIAL IVP ONE; -PROPOFOL 10 MG/ML 20 ML VIAL IV ONE; -ROCURONIUM BROMIDE 10 MG/ML 10 ML VIAL IV ONE; -SODIUM CHLORIDE 0.9% 1,000 ML IV ONE; -SUCCINYLCHOLINE CHLORIDE 100 MG/5 ML SYR IV ONE; -ceFAZolin 2 GM in SODIUM CHLORIDE 0.9% 100 ML IVPB ONE; -fentaNYL (PF) 50 MCG/ML 2 ML AMP ONE; -hydrALAZINE HCL 20 MG/ML 1 ML VIAL IVP ONE
[2018-05-08 08:42] VITALS: TEMP 97.8
[2018-05-08 08:55] LABS: Glucose,Whole Blood 154 mg/dL (75-99)
[2018-05-08 09:00] LABS: HCT 41.9 % (34.0-46.0); HGB 13.8 gm/dL (11.4-16.0); MCH 30.3 pg (25.0-35.0); MCHC 32.9 g/dL (31.0-37.0); Mean Platelet Volume 6.8; Platelet Count 256 k/uL (150-450); RBC 4.55 m/uL (3.80-5.40); RDW 14.1 % (11.5-15.5); WBC 6.9 k/uL (3.8-10.6)
[2018-05-08] MEDS ORDERED: PROPOFOL 10 MG/ML 20 ML VIAL IV ONE (09:00)
[2018-05-08 09:30] LABS: ALT 41 U/L (9-52); AST 32 U/L (14-36); Albumin 3.9 g/dL (3.5-5.0); Alkaline Phosphatase 125 U/L (38-126); Anion Gap 10 mmol/L; Blood Urea Nitrogen 15 mg/dL (7-17); C Reactive Protein 15.4 mg/L (<10.0); Calcium 9.3 mg/dL (8.4-10.2); Carbon Dioxide 26 mmol/L (22-30); Chloride 108 mmol/L (98-107); Glucose 160 mg/dL (74-99); Potassium 3.6 mmol/L (3.5-5.1); Sodium 144 mmol/L (137-145); Total Bilirubin 1.5 mg/dL (0.2-1.3); Total Protein 6.9 g/dL (6.3-8.2)
--- NOTE | 2018-05-08 09:36 | P.PCN ---
Date of Procedure: 05/08/18 Procedure(s) Performed: Procedure: Sigmoidoscopy and biopsy. Preoperative diagnosis: Diarrhea and history of ulcerative colitis. Postoperative diagnosis: 1. S/P Subtotal colectomy. 2. Mild proctitis. 3. Biopsies obtained in the sigmoid and rectum. Preparation: HalfLytely prep. Sedation: Was provided by anesthesia. Brief clinical history: The patient is a 57-year-old female with history of ulcerative colitis first diagnosed at age 33. She had resection in 2016. Her last exam was in January 2017. At that time she had no symptoms and did not have any evidence of inflammation. The patient has been having issues since the summer of 2017. She is on sulfasalazine which has worked in the past but she believes is not working anymore. She has frequent loose/watery movements 4-5 times daily without blood. She had right eye surgery for cataract last year and she is not healing and was told this could be related to her active inflammatory bowel disease. This evaluation is to assess for activity and guide therapy. Procedure: With the patient on her left lateral decubitus position and after informed consent and adequate sedation, the perianal area was inspected and it did not show any fissures or fistulas. There were no masses felt on digital rectal examination. The Olympus CFH 190L video colonoscope was then inserted in the rectum in the usual fashion and advanced. The patient had prior subtotal colectomy and there was a short segment of distal sigmoid left. The anastomosis appeared healthy. I advanced the endoscope for a good distance in the small bowel which did not appear involved. The sigmoid appeared healthy. The rectum showed erythema and friability but no ulcers, erosions or bleeding. I obtained biopsies from the sigmoid and separate samples from the rectum then I retroflexed the endoscope in the rectum before the endoscope was withdrawn. The patient tolerated the procedure well. Plan: The patient was reassured. Will await biopsy results and make further plans based on her course and biopsy results. I will keep you updated on her progress.
[2018-05-08 09:45] VITALS: BP 128/88; PULSE 79; RESP 18
[2018-05-08 11:37] LABS: Erythrocyte Sedimentation Rate 28 mm/hr (0-20)
== END 2018-05-08 10:09 | disposition home or self-care (01) ==
LOC: ORWHC2ENDO 08:02
DX: K52.9 Noninfective gastroenteritis and colitis, unspecified (principal); K62.89 Other specified diseases of anus and rectum; Z90.49 Acquired absence of other specified parts of digestive tract; Z91.048 Other nonmedicinal substance allergy status; K21.9 Gastro-esophageal reflux disease without esophagitis; J44.9 Chronic obstructive pulmonary disease, unspecified; I25.10 Atherosclerotic heart disease of native coronary artery without angina pectoris; G47.33 Obstructive sleep apnea (adult) (pediatric); Z99.89 Dependence on other enabling machines and devices; E07.9 Disorder of thyroid, unspecified; M79.7 Fibromyalgia; E11.40 Type 2 diabetes mellitus with diabetic neuropathy, unspecified; Z79.84 Long term (current) use of oral hypoglycemic drugs; Z79.1 Long term (current) use of non-steroidal anti-inflammatories (NSAID); Z79.51 Long term (current) use of inhaled steroids; Z79.899 Other long term (current) drug therapy; Z88.8 Allergy status to other drugs, medicaments and biological substances
CPT/HCPCS: 80053; 85652; 85027; 86140; 82306; 45331; J2704; 88305

== ENCOUNTER → 2019-06-08 | Outpatient (CLI) | payer MEDICARE ==
[2019-06-08 10:37] LABS: Basophils % (A) 0 %; Eosinophils # (A) 0.2 k/uL (0-0.7); Eosinophils % (A) 3 %; HCT 44.3 % (34.0-46.0); HGB 14.5 gm/dL (11.4-16.0); Lymphocytes # (A) 1.7 k/uL (1.0-4.8); Lymphocytes % (A) 22 %; MCH 30.4 pg (25.0-35.0); MCHC 32.8 g/dL (31.0-37.0); MCV 92.8 fL (80.0-100.0); Mean Platelet Volume 7.3; Monocytes # (A) 0.4 k/uL (0-1.0); Monocytes % (A) 5 %; Neutrophils # (A) 5.2 k/uL (1.3-7.7); Neutrophils % (A) 68 %; Platelet Count 208 k/uL (150-450); RBC 4.77 m/uL (3.80-5.40); RDW 13.3 % (11.5-15.5); WBC 7.7 k/uL (3.8-10.6)
[2019-06-08 11:09] LABS: ALT 19 U/L (4-34); AST 26 U/L (14-36); African American GFR (CKD) >90 (>60 ml/min/1.73 sqM); Albumin 4.1 g/dL (3.5-5.0); Alkaline Phosphatase 107 U/L (38-126); Anion Gap 9 mmol/L; Blood Urea Nitrogen 16 mg/dL (7-17); Calcium 9.3 mg/dL (8.4-10.2); Carbon Dioxide 26 mmol/L (22-30); Chloride 102 mmol/L (98-107); Glucose 243 mg/dL (74-99); Non-African American GFR(CKD) >90 (>60 ml/min/1.73 sqM); Potassium 4.2 mmol/L (3.5-5.1); Sodium 137 mmol/L (137-145); Total Bilirubin 1.1 mg/dL (0.2-1.3); Total Protein 7.4 g/dL (6.3-8.2)
[2019-06-08 11:26] LABS: T4, Free (Free Thyroxine) 0.99 ng/dL (0.78-2.19)
--- NOTE | 2019-06-08 11:41 | CT ---
EXAMINATION TYPE: CT chest wo con DATE OF EXAM: 06/08/2019 COMPARISON: 1010/ HISTORY: cough, SOB CT DLP: 865.9 mGycm High-resolution noncontrast CT of the chest was performed with the patient in the prone and supine po sitions. Lung and mediastinal window settings are submitted. The lungs appear to be well-aerated. I do not see evidence for fibrotic change. There is no eviden ce for bronchiectasis, groundglass infiltrate, nodule or mass. No pleural effusion is identified. I do not see evidence for hilar or mediastinal mass or adenopathy. IMPRESSION: No significant abnormality is seen. Correlate clinically.
[2019-06-08 15:10] LABS: Thyroid Peroxidase Antibodies 225.3 U/mL (0.0-60.0)
[2019-06-08 20:15] LABS: Hemoglobin A1C 6.8 % (4.0-6.0)
== END | disposition home or self-care (01) ==
LOC: RADCTMAIN 09:58
PROVIDERS: ATTEND Internal Medicine
DX: R05 Cough (principal); I10 Essential (primary) hypertension; E11.9 Type 2 diabetes mellitus without complications; G89.4 Chronic pain syndrome; J45.901 Unspecified asthma with (acute) exacerbation; K51.90 Ulcerative colitis, unspecified, without complications
CPT/HCPCS: 36415; 71250; 80053; 83036; 84439; 84443; 84481; 85025; 86376; 86800

== ENCOUNTER → 2023-03-04 | Outpatient (CLI) | payer MEDICARE ==
[2023-03-04 09:33] VITALS: BP 138/88; PULSE 100; RESP 16; TEMP 98.3
--- NOTE | 2023-03-04 13:57 | P.PAINPG ---
PQRS Measure Charge Sheet Comment: HISTORY OF PRESENT ILLNESS: A 62 yr old female as a referral from Dr Monk presents today w severe and chronic LBP x 1 yr secondary to DDD, spondylosis and facet arthropathy without myelopathy for evaluation. Pt states pain level is provoked at 8 /10 in intensity, constant, localized in the lumbar spine, predominantly axial, achy in character w occasional shooting pain towards the back of the LEs. Pain is provoked by walking/ standing for periods >15 min. Pain is alleviated by PT yrs ago, massage therapy yrs ago, ice, medications (Tyl), topical, repositioning and rest. Oswestry axial pain score at 20. PMH: OA, Asthma, Angina, COPD, R Cataract, Fibromyalgia, GERD, HTN, RADHA, Hypothyroid Disorder, OAB, UC, ADD/ ADHD/ MDD/ Anxiety PSH: Subtotal Colectomy (2019), R Breast Biopsy, Hernia Repair, Hysterectomy, BL Knee Replacement SH: Negative x3 FH: Fa- Brain Tumor/ at age 71. Mo- [place]/ at age 54. Sis- [place] All: See list Meds: See list REVIEW OF ORGAN SYSTEMS: CONSTITUTIONAL: No fevers or chills. No recent weight loss. NEUROLOGICAL: + numbness and tingling along the distal extremities. No seizure disorders or headaches. MUSCULOSKELETAL: + pain PSYCHIATRIC: Denies current depression or suicidal thoughts. Physical Examinations : Constitutional : Cooperative , not in acute distress . Neurologic : Cranial nerve II to XII intact. No focal neurological deficits. Psychiatric : alert & oriented x 3. Matching mood & appropriate affect. Judgment & insight intact. Musculoskeletal : Cervical Spine Motor strength in the deltoid and biceps: Normal right side. Normal Left side Motor strength biceps and the wrist extensors: Normal right side . Normal left side Motor strength in the triceps muscle: Normal right side. Normal left side Deep tendon reflexes: Normal at the biceps. Normal at Brachioradialis. Normal at triceps Vertebral body tenderness to deep palpation over Cervical facet loading test: positive bilaterally Spurling test: positive bilaterally Neck distraction test: positive bilaterally Scott sign: positive bilaterally Lumbar spine Motor strength lower extremities ,thigh and legs 5/5 Right side , 5/5 Left side Deep tendon reflexes : Normal Knee Jerk. Normal Ankle Jerk Vertebral body tenderness over Forde Test positive over L5-S1 Lumbar facet Loading Test: positive Right / positive Left Range of motion of the lumbar spine Flexion 30 degrees, extension 10 degrees Straight Leg Raise test: Left/ Right positive at degrees Nhan test: positive right / positive left. Severe tenderness over the Sacroiliac joint on the Right / Left sides Gaenslen test: positive bilaterally Seated flexion test: positive bilaterally. Sacral spine : Severe tenderness over the Sacroiliac joint: right side / left side Range of motion: Flexion of the lumbar spine <60 degrees Range of motion: Extension of the lumbar spine <20 degrees Gaenslen's Test positive Nhan test: positive right side / left side Thigh Thrust Test Sacral Thrust Test Imaging: MRI noncontrast of the lumbar spine from 02/14/18 reviewed Assessment/ Plan : Lumbar DDD Recommendation of lumbar x ray and PT lumbar spine x 6 wks M51.36. RTC in 2 wks for a re evaluation. All questions answered. I have spent greater than 30 minutes on patient care today. Dr Nolen was available by phone for the evaluation of this patient. The time was used to review the medical records including relevant urine studies and Prescription history (MAPs), review of the available imaging, evaluation and examination of the patient, coordination of care with the medical staff and if applicable referring physicians, as well as creation of the medical record PQRS Narrative: Smoking Status Never smoker Home Medications: Ambulatory Orders Methylphenidate HCl [Ritalin] 20 mg PO BID 12/03/13 Potassium Chloride 20 meq PO TID 12/03/13 Venlafaxine HCl [Effexor] 75 mg PO BID 12/03/13 sulfaSALAzine [Azulfidine] 1,000 mg PO QID 12/03/13 Furosemide [Lasix] 20 mg PO DAILY 01/19/15 Losartan Potassium 100 mg PO QAM 01/19/15 traZODone HCL [Desyrel] 200 mg PO HS 01/19/15 Gabapentin [Neurontin] 100 mg PO TID 05/10/15 Ibuprofen [Motrin] 800 mg PO TID 05/10/15 Cyclobenzaprine [Flexeril] 5 mg PO Q12H 04/27/16 LORazepam [Lorazepam] 1 mg PO TID 04/27/16 Tobramycin 0.3% Ophth Oint [Tobrex 0.3% Ophth Oint] 1 applic RIGHT EYE TID 7 Days gm 04/30/16 diphenhydrAMINE [Benadryl] 50 mg PO HS PRN #5 capsule 04/30/16 Budesonide-Formot 160-4.5 Mcg [Symbicort 160-4.5 Mcg Inhaler] 2 puff INHALATION DAILY 05/05/18 HYDROcodone/APAP 7.5-325MG [[place] 7.5-325] 1 tab PO BID 05/05/18 metFORMIN HCL [Glucophage] 500 mg PO TID 05/05/18 amLODIPine [Norvasc] 1 tab PO DAILY 05/08/18 Controlled Substance Measures - Controlled Substance Measures Is patient prescribed a controlled substance at discharge?: No
== END ==
LOC: PNWHC3 08:49
PROVIDERS: ATTEND Specialist
DX: M51.37 Other intervertebral disc degeneration, lumbosacral region (principal); M47.817 Spondylosis without myelopathy or radiculopathy, lumbosacral region; Z91.09 Other allergy status, other than to drugs and biological substances; Z88.3 Allergy status to other anti-infective agents
CPT/HCPCS: 99211

== ENCOUNTER 2024-02-15 20:08 | Observation (INO) | payer MEDICARE ==
[2024-02-15 20:39] LABS: Glucose,Whole Blood 176 mg/dL (70-110)
--- NOTE | 2024-02-15 20:52 | ED ---
General Adult HPI - General Chief complaint: Altered Mental Status Stated complaint: AMS Time Seen by Provider: 02/15/24 20:25 Source: patient Mode of arrival: ambulatory - History of Present Illness Initial comments: Patient is a 63-year-old female the past medical history of COPD, diabetes, hypertension presenting for dizziness and aphasia. Patient states she first noticed the symptoms around yesterday evening 8:00. Describes dizziness as lightheadedness that occurs with ambulation. Since then she has had difficulty with finding words and her stepdaughter who frequently visits the patient states the patient is more anxious than normal. Patient has no history of prior CVA and is not on blood thinners. She denies any changes in vision, slurred speech, numbness or weakness of her extremities. She denies any shortness of breath or chest pain, recent fevers or chills. Does states that since thanksgiving has had intermittent episodes of emesis that seem to occur with no pattern. She intermittently becomes nauseous but denies any abdominal pain currently. Denies diarrhea, black or bloody stools. - Related Data Home Medications Medication Instructions Recorded Confirmed sulfaSALAzine [Azulfidine] 500 mg PO QID 12/03/13 02/16/24 Furosemide [Lasix] 20 mg PO DAILY 01/19/15 02/16/24 Losartan Potassium 100 mg PO DAILY 01/19/15 02/16/24 metFORMIN HCL [Glucophage] 500 mg PO BID 05/05/18 02/16/24 Albuterol Inhaler [Ventolin Hfa 2 puff INHALATION RT-Q4H PRN 02/16/24 02/16/24 Inhaler] Atorvastatin [Lipitor] 10 mg PO HS 02/16/24 02/16/24 Dextroamphetamine Sulfate [Zenzedi] 10 mg PO BID 02/16/24 02/16/24 HYDROcodone/APAP 5-325MG [[place] 1 tab PO TID PRN 02/16/24 02/16/24 5-325] Ipratropium-Albuterol Nebulize 3 ml INHALATION RT-QID PRN 02/16/24 02/16/24 [Duoneb 0.5 mg-3 mg/3 ml Soln] LORazepam 2 mg PO BID 02/16/24 02/16/24 Mometasone/Formoterol [Dulera 100 2 puff INHALATION RT-BID 02/16/24 02/16/24 Mcg-5 Mcg Inhaler] Montelukast [Singulair] 10 mg PO DAILY 02/16/24 02/16/24 Pantoprazole [Protonix] 40 mg PO DAILY PRN 02/16/24 02/16/24 Potassium Chloride ER [K-Dur 20] 20 meq PO TID 02/16/24 02/16/24 Venlafaxine HCl [Effexor XR] 150 mg PO DAILY 02/16/24 02/16/24 traZODone HCL 150 - 300 mg PO HS 02/16/24 02/16/24 Allergies Allergy/AdvReac Type Severity Reaction Status Date / Time nickel Allergy allergy Verified 02/16/24 08:59 test lisinopril AdvReac Itching,ap Verified 02/16/24 08:59 h,headache "amerchol" Allergy per Uncoded 05/05/18 13:18 allergy test gold Allergy allergy Uncoded 05/05/18 13:18 rash Review of Systems ROS Statement: Those systems with pertinent positive or pertinent negative responses have been documented in the HPI. ROS Other: All systems not noted in ROS Statement are negative. Constitutional: Denies: fever, chills Eyes: Denies: vision change Respiratory: Denies: cough, dyspnea Cardiovascular: Denies: chest pain, edema Gastrointestinal: Reports: nausea, vomiting. Denies: abdominal pain, diarrhea, constipation, melena, hematochezia Genitourinary: Denies: urgency, dysuria, frequency Neurological: Reports: headache (intermittent, mild, none currently ), other (dizziness). Denies: weakness, numbness, paresthesias, confusion, vertigo Psychiatric: Reports: anxiety Past Medical History Past Medical History: Asthma, Chest Pain / Angina, COPD, Diabetes Mellitus, Eye Disorder, Fibromyalgia, GERD/Reflux, Hypertension, Osteoarthritis (OA), Pneumonia, Sleep Apnea/CPAP/BIPAP, Thyroid Disorder Additional Past Medical History / Comment(s): ulcerative colitis, hx anemia, "overactive bladder", insomnia, ULCERATIVE COLITIS neuropathy, "rt eye after cataract surgery not healing" has cpap machine History of Any Multi-Drug Resistant Organisms: None Reported Past Surgical History: Bowel Resection, Breast Surgery, Hernia Repair, Hysterectomy, Joint Replacement Additional Past Surgical History / Comment(s): RT BREAST-BENIGN TUMOR REMOVED, DANYEL KNEE REPLACEMENT, COLONOSCOPY, danyel cataract surgery Past Anesthesia/Blood Transfusion Reactions: Previous Problems w/ Anesthesia, Motion Sickness Additional Past Anesthesia/Blood Transfusion Reaction / Comment(s): seizure- after surgery (caused by severe sleep apnea per pt), Past Psychological History: ADD/ADHD, Anxiety, Depression Smoking Status: Never smoker Past Alcohol Use History: None Reported Past Drug Use History: None Reported - Past Family History Father Family Medical History: Cancer Additional Family Medical History / Comment(s): Father at age 70 of a brain tumor Mother Family Medical History: Myocardial Infarction ([place]) Additional Family Medical History / Comment(s): Legally blind. Mother at age 53 yrs. Sister(s) Family Medical History: Cancer General Exam - General Exam Comments Initial Comments: PE: CONSTITUTIONAL: No apparent distress, well appearing SKIN: Warm, dry, no jaundice, hives or petechiae EYES: Pupils are equally round, extraocular movements intact without nystagmus, clear conjunctiva, non-icteric sclera HENT: Normocephalic, atraumatic, dry mucus membranes, oropharynx clear without exudates NECK: , Full range of motion, normal appearance PULMONARY: Clear to auscultation without wheezes, rhonchi, or rales, normal excursion, no accessory muscle use and no stridor CARDIOVASCULAR: Regular rate, rhythm, normal S1 and S2. No appreciated murmurs, rubs or gallops. Strong radial pulses with intact distal perfusion. No lower extremity edema GASTROINTESTINAL: Soft, active bowel sounds throughout, non-tender, non- distended, no palpable masses, no rebound or guarding. No hepatosplenomegaly MUSCULOSKELETAL: Extremities have no gross deformity, no edema, redness, or swelling. No calf swelling NEUROLOGIC:_a/o x 3, GCS 15, normal mentation slightly aphasic speech. Moves all extremities x 4 without motor or sensory deficit, cranial nerves: II (visual henderson without defects), III, IV and (extraocular movements are intact, pupils are equal with normal reaction to light), V (intact facial sensation and jaw opening), VII (no facial droop), IX and X (normal palate movement, midline uvula, normal voice), mild aphasia, when shown various pictures is able to identify a feather, glove, chew and most objects but unable to identify a hammock, stating "something that swings" when attempting to describe it, mild aphasia during conversation, unable to name medications she typically takes, XI (symmetrical shoulder shrug and lateral head rotation against resistance), XII (midline tongue protrusion). Motor strength is 5/5 in all extremities. No abnormal movements. Normal muscle tone. Sensation to light touch is intact bilaterally. No cerebellar signs ([id number], [id number], and rapid alternating movements are normal) PSYCHIATRIC:_normal mood and affect, thought process is clear and linear Course Vital Signs 02/15/24 02/15/24 02/15/24 20:12 20:30 22:32 Temperature 97.6 F Pulse Rate 108 H 90 75 Respiratory 18 15 16 Rate Blood Pressure 134/88 149/86 138/85 O2 Sat by Pulse 95 95 95 Oximetry 02/16/24 02/16/24 02/16/24 02:00 05:53 08:00 Temperature Pulse Rate 64 64 98 Respiratory 18 16 22 Rate Blood Pressure 133/78 129/74 O2 Sat by Pulse 98 97 98 Oximetry 02/16/24 02/16/24 02/16/24 09:48 13:43 17:30 Temperature 98 F 98.1 F Pulse Rate 78 71 90 Respiratory 20 18 18 Rate Blood Pressure 129/86 125/75 107/67 O2 Sat by Pulse 96 96 96 Oximetry EKG Findings - EKG Comments: EKG Findings:: Sinus rhythm, rate 85 bpm, RI interval 141 ms, QRS duration 111 ms, QT/QTc 297/339 ms, left axis deviation, left anterior fascicular block, no ST elevations or depressions, no arrhythmia,compared to EKG from 05/06/2016, R wave in lead I does appear slightly wider than prior, left anterior fascicular block is also new from prior, otherwise no new ST elevations or depressions Medical Decision Making - Medical Decision Making Was pt. sent in by a medical professional or institution (, PA, PIPE CONNECTOR, urgent ca re, hospital, or group home...) When possible be specific @ -No Did you speak to anyone other than the patient for history (EMS, parent, family, police, friend...)? What history was obtained from this source I spoke with patient's stepdaughter who presented with the patient, states that patient is typically not aphasic and can speak clearly Did you review nursing and triage notes (agree or disagree)? Why? @ -I reviewed and agree with nursing and triage notes Were old charts reviewed (outside hosp., previous admission, EMS record, old EKG, old radiological studies, urgent care reports/EKG's, group home records)? Report findings @ -Medical records reviewed Differential Diagnosis (chest pain, altered mental status, abdominal pain women, abdominal pain men, vaginal bleeding, weakness, fever, dyspnea, syncope, headache, dizziness, GI bleed, back pain, seizure, CVA, palpatations, mental health, musculoskeletal)? @Differential Dizziness: CVA, Benign paroxysmal positional Vertigo, Meniere's disease, otitis media, acoustic neuroma, vertebrobasilar insufficiency, cerebellar stroke, enc ephalitis, hypovolemic, arrhythmia, coronary artery syndrome, anemia, this is not meant to be an all-inclusive list EKG interpreted by me (3pts min.). @ -As above X-rays interpreted by me (1pt min.). No acute cardiopulmonary process, no cardiomegaly, no consolidations or pleural effusions CT interpreted by me (1pt min.). @CT brain shows no evidence of hemorrhage or mass effect, on CT angiogram I see no evidence of dissection or large vessel occlusion U/S interpreted by me (1pt. min.). @ -None done What testing was considered but not performed or refused? (CT, X-rays, U/S, labs)? Why? @ -None What meds were considered but not given or refused? Why? @ -None Did you discuss the management of the patient with other professionals (professionals i.e. , PA, PIPE CONNECTOR, lab, RT, psych nurse, social service liaison, belt picker, teacher, textile technical officer, porter sample case)? Give summary @ -No Was smoking cessation discussed for >3mins.? @ -No Was critical care preformed (if so, how long)? @ -No Were there social determinants of health that impacted care today? How? (Homelessness, low income, unemployed, alcoholism, drug addiction, transportation, low edu. Level, literacy, decrease access to med. care, fpc, rehab)? @ -No Was there de-escalation of care discussed even if they declined (Discuss DNR or withdrawal of care, Hospice)? @ -No What co-morbidities impacted this encounter? (DM, HTN, Smoking, COPD, CAD, Cancer, CVA, ARF, Chemo, Hep., AIDS, mental health diagnosis, sleep apnea, morbid obesity)? @Hypertension, diabetes Was patient admitted / discharged? Hospital course, mention meds given and route, prescriptions, significant lab abnormalities, going to OR and other pertinent info. @Admission-this is a pleasant 63-year-old female with history COPD hypertension and diabetes presenting today for greater than 24 hours of dizziness with ambulation, aphasia and anxiety. Patient mildly tachycardic on arrival with heart rate 105, otherwise vital signs within acceptable limits. Physical exam shows mild aphasia with conversation, otherwise no focal deficits. Plan for CT brain, CTA comprehensive labs chest x-ray anticipate admission due to new neurologic deficit. Her symptoms began greater than 24 hours prior to arrival so a stroke alert was not called. Labs and imaging reviewed. Potassium 3.1, ordered replacement, otherwise grossly within normal limits. Abnormal values not concerning for acute pathology related to presenting complaint.urinalysis shows large leukocyte esterase but additionally 12 squamous cells and patient has no urinary symptoms so at this point I will consider this contaminated. Updated patient to findings, she is agreeable with plan for admission. Patient discussed with Dr. Garcia kindly accepts patient for admission. Patient admitted in stable condition. Patient had limited ability to name all of her home medications due to aphasia but through chart review was able to majortiy of patient's home meds. Undiagnosed new problem with uncertain prognosis? @Yes Drug Therapy requiring intensive monitoring for toxicity (Heparin, Nitro, Insulin, Cardizem)? @ -No Were any procedures done? @ -No Diagnosis/symptom? @Aphasia, dizziness Acute, or Chronic, or Acute on Chronic? Acute] Uncomplicated (without systemic symptoms) or Complicated (systemic symptoms)? Complicated Side effects of treatment? @ -No Exacerbation, Progression, or Severe Exacerbation? @ -No Poses a threat to life or bodily function? How? (Chest pain, [place], [place], pneumonia, PE, COPD, DKA, ARF, appy, cholecystitis, CVA, Diverticulitis, Homicidal, Suicidal, threat to staff... and all critical care pts) @Potentially, this is secondary to CVA and left unaddressed, patient is at risk for repeat CVA - Lab Data Result diagrams: 02/15/24 20:54 02/15/24 20:54 Lab Results 02/15/24 02/15/24 02/15/24 Range/Units 20:38 20:54 20:54 WBC 9.3 (3.8-10.6) k/uL RBC 4.84 (3.80-5.40) m/uL Hgb 14.9 (11.4-16.0) gm/dL Hct 44.0 (34.0-46.0) % MCV 90.9 (80.0-100.0) fL MCH 30.7 (25.0-35.0) pg MCHC 33.8 (31.0-37.0) g/dL RDW 12.3 (11.5-15.5) % Plt Count 183 (150-450) k/uL MPV 7.4 Neutrophils % 58 % Lymphocytes % 30 % Monocytes % 7 % Eosinophils % 3 % Basophils % 1 % Neutrophils # 5.4 (1.3-7.7) k/uL Lymphocytes # 2.8 (1.0-4.8) k/uL Monocytes # 0.6 (0-1.0) k/uL Eosinophils # 0.3 (0-0.7) k/uL Basophils # 0.1 (0-0.2) k/uL PT 11.8 (10.0-12.5) sec INR 1.1 (<1.2) APTT 22.6 (22.0-30.0) sec Sodium (137-145) mmol/L Potassium (3.5-5.1) mmol/L Chloride (98-107) mmol/L Carbon Dioxide (22-30) mmol/L Anion Gap mmol/L BUN (7-17) mg/dL Creatinine (0.52-1.04) mg/dL Est GFR (CKD-EPI)AfAm (>60 ml/min/1.73 sqM) Est GFR (CKD-EPI)NonAf (>60 ml/min/1.73 sqM) Glucose (74-99) mg/dL POC Glucose (mg/dL) 176 H (70-110) mg/dL POC Glu Production Support Consultant ID Forrest Galo Calcium (8.4-10.2) mg/dL Total Bilirubin (0.2-1.3) mg/dL AST (14-36) U/L ALT (4-34) U/L Alkaline Phosphatase (38-126) U/L Troponin I (0.000-0.034) ng/mL Total Protein (6.3-8.2) g/dL Albumin (3.5-5.0) g/dL Urine Color Urine Appearance (Clear) Urine pH (5.0-8.0) Ur Specific [place] (1.001-1.035) Urine Protein (Negative) Urine Glucose (UA) (Negative) Urine Ketones (Negative) Urine Blood (Negative) Urine Nitrite (Negative) Urine Bilirubin (Negative) Urine Urobilinogen (<2.0) mg/dL Ur Leukocyte Esterase (Negative) Urine RBC (0-5) /hpf Urine WBC (0-5) /hpf Ur Squamous Epith Cells (0-4) /hpf Urine Bacteria (None) /hpf Hyaline Casts (0-2) /lpf Urine Mucus (None) /hpf Urine Yeast (Budding) (None) /hpf Urine Opiates Screen (NotDetected) Ur Oxycodone Screen (NotDetected) Urine Methadone Screen (NotDetected) Ur Barbiturates Screen (NotDetected) U Tricyclic Antidepress (NotDetected) Ur Phencyclidine Scrn (NotDetected) Ur Amphetamines Screen (NotDetected) U Methamphetamines Scrn (NotDetected) U Benzodiazepines Scrn (NotDetected) Urine Cocaine Screen (NotDetected) U Marijuana (THC) Screen (NotDetected) 02/15/24 02/15/24 02/15/24 Range/Units 20:54 20:54 21:35 WBC (3.8-10.6) k/uL RBC (3.80-5.40) m/uL Hgb (11.4-16.0) gm/dL Hct (34.0-46.0) % MCV (80.0-100.0) fL MCH (25.0-35.0) pg MCHC (31.0-37.0) g/dL RDW (11.5-15.5) % Plt Count (150-450) k/uL MPV Neutrophils % % Lymphocytes % % Monocytes % % Eosinophils % % Basophils % % Neutrophils # (1.3-7.7) k/uL Lymphocytes # (1.0-4.8) k/uL Monocytes # (0-1.0) k/uL Eosinophils # (0-0.7) k/uL Basophils # (0-0.2) k/uL PT (10.0-12.5) sec INR (<1.2) APTT (22.0-30.0) sec Sodium 138 (137-145) mmol/L Potassium 3.1 L (3.5-5.1) mmol/L Chloride 106 (98-107) mmol/L Carbon Dioxide 23 (22-30) mmol/L Anion Gap 9 mmol/L BUN 16 (7-17) mg/dL Creatinine 0.85 (0.52-1.04) mg/dL Est GFR (CKD-EPI)AfAm 85 (>60 ml/min/1.73 sqM) Est GFR (CKD-EPI)NonAf 74 (>60 ml/min/1.73 sqM) Glucose 189 H (74-99) mg/dL POC Glucose (mg/dL) (70-110) mg/dL POC Glu Production Support Consultant ID Calcium 9.6 (8.4-10.2) mg/dL Total Bilirubin 1.6 H (0.2-1.3) mg/dL AST 35 (14-36) U/L ALT 23 (4-34) U/L Alkaline Phosphatase 94 (38-126) U/L Troponin I <0.012 (0.000-0.034) ng/mL Total Protein 7.9 (6.3-8.2) g/dL Albumin 4.5 (3.5-5.0) g/dL Urine Color Light Yellow Urine Appearance Cloudy H (Clear) Urine pH 6.0 (5.0-8.0) Ur Specific [place] 1.014 (1.001-1.035) Urine Protein Trace H (Negative) Urine Glucose (UA) Negative (Negative) Urine Ketones Trace H (Negative) Urine Blood Negative (Negative) Urine Nitrite Negative (Negative) Urine Bilirubin Negative (Negative) Urine Urobilinogen <2.0 (<2.0) mg/dL Ur Leukocyte Esterase Large H (Negative) Urine RBC 1 (0-5) /hpf Urine WBC 17 H (0-5) /hpf Ur Squamous Epith Cells 12 H (0-4) /hpf Urine Bacteria Rare H (None) /hpf Hyaline Casts 13 H (0-2) /lpf Urine Mucus Occasional H (None) /hpf Urine Yeast (Budding) Occasional H (None) /hpf Urine Opiates Screen Detected H (NotDetected) Ur Oxycodone Screen Not Detected (NotDetected) Urine Methadone Screen Not Detected (NotDetected) Ur Barbiturates Screen Not Detected (NotDetected) U Tricyclic Antidepress Not Detected (NotDetected) Ur Phencyclidine Scrn Not Detected (NotDetected) Ur Amphetamines Screen Not Detected (NotDetected) U Methamphetamines Scrn Not Detected (NotDetected) U Benzodiazepines Scrn Detected H (NotDetected) Urine Cocaine Screen Not Detected (NotDetected) U Marijuana (THC) Screen Not Detected (NotDetected) Disposition Clinical Impression: Aphasia, Lightheadedness, Hypokalemia Disposition: ADMITTED IP TO THIS [facility] Condition: Stable
[2024-02-15] MEDS: SODIUM CHLORIDE 0.9% 1,000 ML IV ONE (21:04)
[2024-02-15 21:18] LABS: ALT 23 U/L (4-34); AST 35 U/L (14-36); African American GFR (CKD) 85 (>60 ml/min/1.73 sqM); Albumin 4.5 g/dL (3.5-5.0); Alkaline Phosphatase 94 U/L (38-126); Anion Gap 9 mmol/L; Blood Urea Nitrogen 16 mg/dL (7-17); Calcium 9.6 mg/dL (8.4-10.2); Carbon Dioxide 23 mmol/L (22-30); Chloride 106 mmol/L (98-107); Glucose 189 mg/dL (74-99); Non-African American GFR(CKD) 74 (>60 ml/min/1.73 sqM); Potassium 3.1 mmol/L (3.5-5.1); Sodium 138 mmol/L (137-145); Total Bilirubin 1.6 mg/dL (0.2-1.3); Total Protein 7.9 g/dL (6.3-8.2)
[2024-02-15 21:40] LABS: Basophils # (A) 0.1 k/uL (0-0.2); Basophils % (A) 1 %; Eosinophils # (A) 0.3 k/uL (0-0.7); Eosinophils % (A) 3 %; HGB 14.9 gm/dL (11.4-16.0); Lymphocytes # (A) 2.8 k/uL (1.0-4.8); Lymphocytes % (A) 30 %; MCH 30.7 pg (25.0-35.0); MCHC 33.8 g/dL (31.0-37.0); MCV 90.9 fL (80.0-100.0); Mean Platelet Volume 7.4; Monocytes # (A) 0.6 k/uL (0-1.0); Monocytes % (A) 7 %; Neutrophils # (A) 5.4 k/uL (1.3-7.7); Neutrophils % (A) 58 %; Platelet Count 183 k/uL (150-450); RBC 4.84 m/uL (3.80-5.40); RDW 12.3 % (11.5-15.5); WBC 9.3 k/uL (3.8-10.6)
[2024-02-15 21:45] LABS: INR 1.1 (<1.2); Partial Thromboplastin Time 22.6 sec (22.0-30.0); Prothrombin Time 11.8 sec (10.0-12.5)
--- NOTE | 2024-02-15 21:53 | XR ---
EXAMINATION TYPE: XR chest 2V DATE OF EXAM: 02/15/2024 9:49 PM COMPARISON: Previous chest radiograph dated 12/27/2020. CLINICAL INDICATION: Female, 63 years old with history of altered mental status; [facility] TECHNIQUE: XR chest 2V Frontal and lateral views of the chest. FINDINGS: Lungs/Pleura: There is no evidence of pleural effusion, focal consolidation, or pneumothorax. Asymme tric elevation of the right hemidiaphragm. Pulmonary vascularity: Unremarkable. Heart/mediastinum: Cardiomediastinal silhouette is unremarkable. Musculoskeletal: No acute osseous pathology. Other findings: None IMPRESSION: No acute cardiopulmonary disease/process. [facility], , 02/15/2024 9:51 PM
[2024-02-15 21:55] LABS: Appearance,Urine Cloudy (Clear); Bacteria,Urine Rare /hpf; Bilirubin,Urine Negative (Negative); Blood,Urine Negative (Negative); Budding Yeast,Urine Occasional /hpf; Color,Urine Light Yellow; Glucose,Urine (UA) Negative (Negative); Hyaline Casts,Urine 13 /lpf (0-2); Ketones,Urine Trace (Negative); Leukocyte Esterase,Urine Large (Negative); Mucus,Urine Occasional /hpf; Nitrite,Urine Negative (Negative); Protein,Urine Trace (Negative); RBC,Urine 1 /hpf (0-5); Specific Gravity,Urine 1.014 (1.001-1.035); Squamous Epithelial Cell,Urine 12 /hpf (0-4); Urobilinogen,Urine <2.0 mg/dL (<2.0); WBC,Urine 17 /hpf (0-5)
--- NOTE | 2024-02-15 22:04 | CT ---
EXAMINATION TYPE: CT brain wo con DATE OF EXAM: 02/15/2024 9:58 PM COMPARISON: None. CLINICAL INDICATION: Female, 63 years old with history of AMS, aphasia, dizziness, confusion and dizz iness x 1 day TECHNIQUE: Brain: Axial CT images of the brain were obtained with coronal and sagittal reformats created and rev iewed. Contrast used: None. Oral contrast used: None. CT DLP: 1530.9 mGycm, Automated exposure control for dose reduction was used. FINDINGS: Brain: Extra-axial spaces: No abnormal extra-axial fluid collections. Ventricular system: Within normal limits Cerebral parenchyma: No acute intraparenchymal hemorrhage or mass effect. The cortez-white junction is well differentiated. Scattered hypoattenuating areas are seen within the white matter. Cerebellum: Unremarkable. Mass effect: No evidence of midline shift. Intracranial vasculature: unremarkable Soft tissues: Normal. Calvarium/osseous structures: No depressed skull fracture. Paranasal sinuses and mastoid air cells: Near complete opacification of the left maxillary sinus with air-fluid level. Scattered ethmoid air cell mucosal thickening also noted. Visualized orbits: Orbital contents are intact. IMPRESSION: 1. No acute intracranial process. 2. Mucosal thickening of the left maxillary sinus with air-fluid level suggesting acute etiology. [facility], , 02/15/2024 10:01 PM
[2024-02-15 22:11] LABS: Amphetamine Screen,Urine Not Detected (NotDetected); Barbiturate Screen,Urine Not Detected (NotDetected); Benzodiazepines Screen,Urine Detected (NotDetected); Cocaine Screen,Urine Not Detected (NotDetected); Methadone Screen, Urine Not Detected (NotDetected); Opiate Screen,Urine Detected (NotDetected); Oxycodone Screen, Urine Not Detected (NotDetected); Phencyclidine Screen,Urine Not Detected (NotDetected); Tricyclic Antidepressant,Urine Not Detected (NotDetected); Urn Cannabinoid Scrn Not Detected (NotDetected)
[2024-02-15] MEDS: ONDANSETRON 4 MG/2 ML VIAL IVP STA (22:27)
[2024-02-15] MEDS: POTASSIUM BICARBONATE/CIT AC 20 MEQ TABLET.EFF PO ONE (22:31)
[2024-02-15] MEDS ORDERED: traMADol 50 MG TAB PO PRN (22:33)
[2024-02-15] MEDS ORDERED: NALOXONE 0.4 MG/ML 1 ML VIAL IV PRN (22:33)
[2024-02-15] MEDS ORDERED: ALPRAZolam 0.25 MG TAB PO PRN (22:38)
[2024-02-15] MEDS: traZODone HCL 100 MG TAB PO SCH (23:22)
--- NOTE | 2024-02-16 02:18 | CT ---
EXAM: CT Angiography Head With Intravenous Contrast CLINICAL HISTORY: ITS.REASON CT Reason: dizziness, aphasia x 1 day TECHNIQUE: Axial computed tomographic angiography images of the head with intravenous contrast. CTDI is 48.8 mGy and DLP is 1069 mGy-cm. This CT exam was performed using one or more of the following dose reduction techniques: automated exposure control, adjustment of the mA and/or kV according to patient size, and/or use of iterative reconstruction technique. MIP reconstructed images were created and reviewed. COMPARISON: No relevant prior studies available. FINDINGS: Right internal carotid artery: No significant stenosis. No aneurysm. Right anterior cerebral artery: No significant stenosis. No aneurysm. Right middle cerebral artery: No significant stenosis. No aneurysm. Right posterior cerebral artery: No significant stenosis. No aneurysm. Right vertebral artery: Unremarkable. Left internal carotid artery: No significant stenosis. No aneurysm. Left anterior cerebral artery: No significant stenosis. No aneurysm. Left middle cerebral artery: No significant stenosis. No aneurysm. Left posterior cerebral artery: No significant stenosis. No aneurysm. Left vertebral artery: Unremarkable. Basilar artery: No significant stenosis. No aneurysm. IMPRESSION: No significant stenosis. EXAM: CT Angiography Neck With Intravenous Contrast CLINICAL HISTORY: ITS.REASON CT Reason: dizziness, aphasia x 1 day TECHNIQUE: Routine carotid CT angiography protocol was performed with intravenous contrast. NASCET criteria using the distal ICAs for comparison were used for evaluation of stenoses. CTDI is 10.7 mGy and DLP is 442.1 mGy-cm. This CT exam was performed using one or more of the following dose reduction techniques: automated exposure control, adjustment of the mA and/or kV according to patient size, and/or use of iterative reconstruction technique. MIP reconstructed images were created and reviewed. COMPARISON: None. FINDINGS: VASCULATURE: Right common carotid artery: No significant stenosis. No dissection. Right internal carotid artery: No significant stenosis. No dissection. Right vertebral artery: No significant stenosis. No dissection. Left common carotid artery: No significant stenosis. No dissection. Left internal carotid artery: No significant stenosis. No dissection. Left vertebral artery: No significant stenosis. No dissection. NECK: Lung apices: Clear. CAROTID STENOSIS REFERENCE USING NASCET CRITERIA: % ICA stenosis = (1 - narrowest ICA diameter/diameter of distal cervical ICA) x 100. Mild - <50% stenosis. Moderate - 50-69% stenosis. Severe - 70-94% stenosis. Near occlusion - 95-99% stenosis. Occluded - 100% stenosis. IMPRESSION: No significant stenosis.
[2024-02-16] MEDS ORDERED: VENLAFAXINE HCL 75 MG TAB PO SCH (09:00)
[2024-02-16] MEDS ORDERED: HYDROcodone/APAP 7.5-325MG 1 EACH TAB PO SCH (09:00)
[2024-02-16] MEDS ORDERED: METHYLPHENIDATE HCL 10 MG TAB PO SCH (09:00)
[2024-02-16] MEDS ORDERED: metFORMIN 500 MG TAB PO SCH (09:00)
[2024-02-16] MEDS: ENOXAPARIN 40 MG/0.4 ML SYRINGE SQ SCH (09:37)
[2024-02-16] MEDS: metFORMIN 500 MG TAB PO SCH (09:55)
[2024-02-16] MEDS: FAMOTIDINE 20 MG TAB PO SCH (09:55)
[2024-02-16] MEDS: FUROSEMIDE 20 MG TAB PO SCH (09:56)
[2024-02-16] MEDS: LORazepam 1 MG TAB PO SCH ×2 (09:56→21:08)
[2024-02-16] MEDS: LOSARTAN 50 MG TAB PO SCH (09:56)
[2024-02-16] MEDS: POTASSIUM CHLORIDE ER 20 MEQ TAB.ER PO SCH ×2 (09:56→21:09)
[2024-02-16] MEDS: VENLAFAXINE HCL ER 150 MG CAP PO SCH (09:57)
[2024-02-16] MEDS: HYDROcodone/APAP 5-325MG 1 EACH TAB PO PRN (14:08)
[2024-02-16] MEDS ORDERED: IPRATROPIUM-ALBUTEROL 3 ML NEB INHALATION PRN (17:41)
[2024-02-16] MEDS ORDERED: PANTOPRAZOLE 40 MG TABLET PO PRN (17:41)
[2024-02-16] MEDS ORDERED: HYDROcodone/APAP 5-325MG 1 EACH TAB PO PRN (17:41)
[2024-02-16] MEDS ORDERED: ALBUTEROL NEBULIZED 2.5 MG/3 ML INHALATION PRN (17:41)
[2024-02-16] MEDS: SYMBICORT 80-4.5 MCG INHALER INHALATION SCH (20:30)
[2024-02-16] MEDS: ATORVASTATIN 10 MG TAB PO SCH (21:07)
[2024-02-17] MEDS: DEXTROAMPHETAMINE SULFATE 10 MG PO SCH (06:00)
[2024-02-17] MEDS: VENLAFAXINE HCL ER 150 MG CAP PO SCH (09:10)
[2024-02-17] MEDS: MONTELUKAST 10 MG TAB PO SCH (09:10)
[2024-02-17] MEDS: LORazepam 2 MG/ML INJ IV PRN (14:30)
--- NOTE | 2024-02-17 14:59 | P.CNNES ---
History of Present Illness Consult date: 02/17/24 Requesting physician: Judd Garcia Reason for Consult: tia History of Present Illness: This is a 63-year-old woman present emergency department because of dizziness and speech difficulty. According the patient since this past Saturday having dizziness, lightheadedness, difficulty walking and speech difficulty. She describes the dizziness as the room spinning. She also has nausea. She stated that her nausea has resolved. She states that she is having difficulty getting her words out and she thinks she probably started Saturday or during presentation to the hospital. She continues to have difficulty getting her words out even though she knows what she wants to say. She feels she is having difficulty walk ing but denies any focal weakness. She denies any history of stroke. Denies being on any antiplatelet. She does have underlying history of diabetes melitis. She has a history of hypertension is controlled. She has a history of ulcerative colitis. Some of the workup during this hospital visit consisted of: I reviewed the lab workup. Urinalysis is cloudy, leukocyte esterase is large, urine bacteria is rare. Drug screen is positive for opiates as well as benzo CT of the head is reported as no acute intracranial process. I personally reviewed the CT of the head and I agree there is no acute or subacute stroke. CT angiography of the head and neck is reported as no significant stenosis. Review of Systems As per HPI. Past Medical History Past Medical History: Asthma, Chest Pain / Angina, COPD, Diabetes Mellitus, Eye Disorder, Fibromyalgia, GERD/Reflux, Hypertension, Osteoarthritis (OA), Pneumonia, Sleep Apnea/CPAP/BIPAP, Thyroid Disorder Additional Past Medical History / Comment(s): ulcerative colitis, hx anemia, "overactive bladder", insomnia, ULCERATIVE COLITIS neuropathy, "rt eye after cataract surgery not healing" has cpap machine History of Any Multi-Drug Resistant Organisms: None Reported Past Surgical History: Bowel Resection, Breast Surgery, Hernia Repair, Hysterectomy, Joint Replacement Additional Past Surgical History / Comment(s): RT BREAST-BENIGN TUMOR REMOVED, DANYEL KNEE REPLACEMENT, COLONOSCOPY, danyel cataract surgery Past Anesthesia/Blood Transfusion Reactions: Previous Problems w/ Anesthesia, Motion Sickness Additional Past Anesthesia/Blood Transfusion Reaction / Comment(s): seizure- after surgery (caused by severe sleep apnea per pt), Past Psychological History: ADD/ADHD, Anxiety, Depression Smoking Status: Never smoker Past Alcohol Use History: None Reported Past Drug Use History: None Reported - Past Family History Father Family Medical History: Cancer Additional Family Medical History / Comment(s): Father at age 70 of a brain tumor Mother Family Medical History: Myocardial Infarction (NH) Additional Family Medical History / Comment(s): Legally blind. Mother at age 53 yrs. Sister(s) Family Medical History: Cancer Medications and Allergies Home Medications Medication Instructions Recorded Confirmed Type sulfaSALAzine [Azulfidine] 500 mg PO QID 12/03/13 02/16/24 History Furosemide [Lasix] 20 mg PO DAILY 01/19/15 02/16/24 History Losartan Potassium 100 mg PO DAILY 01/19/15 02/16/24 History metFORMIN HCL [Glucophage] 500 mg PO BID 05/05/18 02/16/24 History Albuterol Inhaler [Ventolin Hfa 2 puff INHALATION RT-Q4H PRN 02/16/24 02/16/24 History Inhaler] Atorvastatin [Lipitor] 10 mg PO HS 02/16/24 02/16/24 History Dextroamphetamine Sulfate [Zenzedi] 10 mg PO BID 02/16/24 02/16/24 History HYDROcodone/APAP 5-325MG [[place] 1 tab PO TID PRN 02/16/24 02/16/24 History 5-325] Ipratropium-Albuterol Nebulize 3 ml INHALATION RT-QID PRN 02/16/24 02/16/24 History [Duoneb 0.5 mg-3 mg/3 ml Soln] LORazepam 2 mg PO BID 02/16/24 02/16/24 History Mometasone/Formoterol [Dulera 100 2 puff INHALATION RT-BID 02/16/24 02/16/24 History Mcg-5 Mcg Inhaler] Montelukast [Singulair] 10 mg PO DAILY 02/16/24 02/16/24 History Pantoprazole [Protonix] 40 mg PO DAILY PRN 02/16/24 02/16/24 History Potassium Chloride ER [K-Dur 20] 20 meq PO TID 02/16/24 02/16/24 History Venlafaxine HCl [Effexor XR] 150 mg PO DAILY 02/16/24 02/16/24 History traZODone HCL 150 - 300 mg PO HS 02/16/24 02/16/24 History Allergies Allergy/AdvReac Type Severity Reaction Status Date / Time nickel Allergy allergy Verified 02/16/24 08:59 test lisinopril AdvReac Itching,ap Verified 02/16/24 08:59 h,headache "amerchol" Allergy per Uncoded 05/05/18 13:18 allergy test gold Allergy allergy Uncoded 05/05/18 13:18 rash Physical Examination - Vital Signs Vital Signs: Vital Signs Temp Pulse Pulse Resp BP BP Pulse Ox 02/17/24 11:55 95 17 114/75 95 02/17/24 09:05 97.9 F 97 18 128/67 92 L 02/17/24 04:00 97.9 F 79 16 102/65 92 L 02/16/24 23:40 97.8 F 64 18 107/70 95 02/16/24 20:00 20 02/16/24 19:49 98.1 F 85 20 124/75 97 02/16/24 17:59 97.1 F L 80 20 126/76 94 L 02/16/24 17:30 98.1 F 90 18 107/67 96 Intake and Output 02/16/24 02/17/24 02/17/24 22:59 06:59 14:59 Intake Total 500 118 Balance 500 118 Intake: Oral 500 118 Other: # Voids 1 1 # Bowel Movements 1 Weight 79.878 kg 80.6 kg GENERAL: The patient is lying in bed and is not in acute distress. NEUROLOGICAL: Higher mental function: The patient is awake, alert, oriented to self, place and time. Patient is following commands. No aphasia and no neglect. Cranial nerves: The pupils are round, equal and reactive to light and accommod ation. Visual henderson are full to confrontation throughout. Extraocular movement is intact no nystagmus is noted. Facial sensation is normal to touch throughout. The facial strength is left nasolabial flattening. Hearing is normal bilaterally to hand rub. Tongue is midline and moved [id number] without any difficulty. No dysarthria is noted. Shoulder shrug is normal bilaterally. Motor: Gait is minimally antalgic but not swaying right or left and not need assistance. The strength is 5 over 5 throughout. Normal tone and bulk. Cerebellum: Normal finger to nose bilaterally. Sensation: Sensation is normal to touch throughout. Reflexes (right/left): 2+ throughout. Plantars are downgoing bilaterally. Results - Laboratory Findings CBC and BMP: 02/15/24 20:54 02/15/24 20:54 Abnormal Lab Findings: Abnormal Labs 02/15/24 02/15/24 02/15/24 20:38 20:54 21:35 Potassium 3.1 L Glucose 189 H POC Glucose (mg/dL) 176 H Total Bilirubin 1.6 H Urine Appearance Cloudy H Urine Protein Trace H Urine Ketones Trace H Ur Leukocyte Esterase Large H Urine WBC 17 H Ur Squamous Epith Cells 12 H Urine Bacteria Rare H Hyaline Casts 13 H Urine Mucus Occasional H Urine Yeast (Budding) Occasional H Urine Opiates Screen Detected H U Benzodiazepines Scrn Detected H Assessment and Plan Assessment: This is a 63-year-old woman who presented emergency department because of dizzi ness, difficulty walking and speech difficulty since this past Saturday. On examination she had left nasolabial flattening and she feels she is sometimes having difficulty getting her words out even though she knows what she wants to say. Probable acute ischemic stroke. No IV thrombolytic since outside the window and the risk outweigh the benefit. Questionable acute urinary tract infection but patient does not have any symptoms Diabetes mellitus Hypertension and patient has a history of hypertension and states it is controlled History of ulcerative colitis Plan: I recommend aspirin 81 mg daily for stroke prophylaxis if cleared by primary team especially with a history of ulcerative colitis. I went up on Lipitor from 10 mg to 4 mg nightly for secondary stroke prophylaxis I ordered MRI of the brain, lipid panel 2D echo was ordered and is pending next Continue neurochecks Cardiac monitoring Consulted PT OT and BISCUIT MAKER Will defer the rest of the medical management to primary and other specialist DVT prophylaxis I started the patient on Lovenox Thank you for the consultation Dr. Fox will resume neurology service tomorrow AM Time with Patient: Greater than 30
--- NOTE | 2024-02-17 15:58 | MR ---
EXAMINATION TYPE: MR brain wo con DATE OF EXAM: 02/17/2024 3:49 PM COMPARISON: 02/15/2024. CLINICAL INDICATION: Female, 63 years old with history of stroke. aphasia; PHH, Stroke, Aphasia TECHNIQUE: Multi planar, multi sequence imaging was performed through the brain including: T1, T2, In version recovery, Diffusion weighted imaging, and gradient echo imaging. No gadolinium was given. FINDINGS: The cortez-white junctions, ventricular system, basal cisterns appear unremarkable. Scattered foci of high T2 signal intensity are seen within the periventricular white matter. Midline structures show n o abnormality. Diffusion-weighted imaging shows no evidence of restricted diffusion. The susceptibili ty weighted images do not reveal any evidence for micro-hemorrhage. The bone marrow signal is within normal limits. Paranasal sinuses and mastoid air cells: Moderate scattered paranasal sinus disease. Visualized orbits: Orbital contents are intact. IMPRESSION: 1. No evidence of intracranial mass or acute/subacute infarct. 2. Nonspecific white matter changes, likely secondary to small vessel ischemic disease. 3. Moderate paranasal sinus disease with mucosal thickening. [facility], , 02/17/2024 3:55 PM
[2024-02-17] MEDS: ATORVASTATIN 40 MG TAB PO SCH (21:02)
[2024-02-17 23:36] LABS: African American GFR (CKD) 77 (>60 ml/min/1.73 sqM); Anion Gap 3 mmol/L; Blood Urea Nitrogen 24 mg/dL (7-17); Calcium 8.5 mg/dL (8.4-10.2); Carbon Dioxide 29 mmol/L (22-30); Chloride 106 mmol/L (98-107); Glucose 126 mg/dL (74-99); Non-African American GFR(CKD) 67 (>60 ml/min/1.73 sqM); Potassium 3.8 mmol/L (3.5-5.1); Sodium 138 mmol/L (137-145)
[2024-02-18 00:05] LABS: Basophils % (A) 1 %; Eosinophils # (A) 0.2 k/uL (0-0.7); Eosinophils % (A) 3 %; HCT 35.3 % (34.0-46.0); Lymphocytes # (A) 1.8 k/uL (1.0-4.8); Lymphocytes % (A) 29 %; MCH 31.1 pg (25.0-35.0); MCHC 33.4 g/dL (31.0-37.0); MCV 93.3 fL (80.0-100.0); Mean Platelet Volume 8.4; Monocytes # (A) 0.4 k/uL (0-1.0); Monocytes % (A) 6 %; Neutrophils # (A) 3.8 k/uL (1.3-7.7); Neutrophils % (A) 59 %; Platelet Count 139 k/uL (150-450); RBC 3.78 m/uL (3.80-5.40); RDW 13.1 % (11.5-15.5); WBC 6.3 k/uL (3.8-10.6)
[2024-02-18 00:51] LABS: HGB 11.8 gm/dL (11.4-16.0)
[2024-02-18 02:36] LABS: Chol/HDL Ratio 1.85 Ratio; LDL Cholesterol,Calculated 27.2 mg/dL (0.0-131.0)
--- NOTE | 2024-02-18 14:01 | CA ---
Transthoracic Echo Report Name: Caitlin Ambriz Age: 63 Gender: F : 1960 Exam Date: 02/18/2024 10:43 Exam Location: [place] [facility] Ht (in): 60 Wt (lb): 176 Ordering Physician: Judd Garcia MD Attending/Referring Phys: Radha JACOBSEN Timber Hand Zuleika Thompson, RDTROY Procedure CPT: Indications: tia Cardiac Hx: Technical Quality: Good Contrast 1: Total Dose (mL): Contrast 2: Total Dose (mL): MEASUREMENTS (Male / Female) Normal Values 2D ECHO LV Diastolic Diameter PLAX 4.5 cm 4.2 - 5.9 / 3.9 - 5.3 cm LV Systolic Diameter PLAX 3.2 cm IVS Diastolic Thickness 1.1 cm 0.6 - 1.0 / 0.6 - 0.9 cm LVPW Diastolic Thickness 1.1 cm 0.6 - 1.0 / 0.6 - 0.9 cm LV Relative Wall Thickness 0.5 RV Internal Dim ED PLAX 3.2 cm LA Systolic Diameter LX 3.6 cm 3.0 - 4.0 / 2.7 - 3.8 cm LV Diastolic Volume MOD 4C 90.8 cm??? LV Systolic Volume MOD 4C 40.3 cm??? LV Ejection Fraction MOD 4C 55.6 % LV Cardiac Index MOD 4C 1908.7 cm???/min???m??? LV Diastolic Length 4C 8.1 cm LV Systolic Length 4C 6.5 cm LV Diastolic Volume MOD 2C 86.0 cm??? LV Systolic Volume MOD 2C 49.7 cm??? LV Ejection Fraction MOD 2C 42.2 % LV Cardiac Index MOD 2C 1373.7 cm???/min???m??? LV Diastolic Length 2C 8.0 cm LV Systolic Length 2C 6.6 cm LA Volume 57.6 cm??? 18 - 58 / 22 - 52 cm??? LA Volume Index 30.7 cm???/m??? 16 - 28 cm???/m??? M-MODE Aortic Root Diameter MM 2.9 cm DOPPLER AV Peak Velocity 143.1 cm/s AV Peak Gradient 8.2 mmHg MV Area PHT 3.1 cm??? Mitral E Point Velocity 88.5 cm/s Mitral A Point Velocity 110.7 cm/s Mitral E to A Ratio 0.8 MV Deceleration Time 244.8 ms TR Peak Velocity 235.7 cm/s TR Peak Gradient 22.2 mmHg Right Ventricular Systolic Press 26.8 mmHg FINDINGS Left Ventricle Left ventricular ejection fraction is estimated at 45-50 %. Mildly increased septal wall thickness. Mildly increased posterior wall thickness. Left ventricular cavity size normal. No obvious regional wall motion abnormalities. Right Ventricle Normal right ventricular size and function. Right ventricular systolic pressure within normal limits. Right Atrium Normal right atrial size. No right atrial thrombus or mass seen. Left Atrium Mildly increased left atrial volume. No left atrial thrombus or mass present. Mitral Valve Structurally normal mitral valve. Trace to mild mitral regurgitation. Aortic Valve Trileaflet aortic valve. No aortic valve stenosis or regurgitation. Tricuspid Valve Structurally normal tricuspid valve. Mild tricuspid regurgitation. Pulmonic Valve Structurally normal pulmonic valve. No pulmonic regurgitation. Pericardium No pericardial effusion. Aorta Normal size aortic root and proximal ascending aorta. CONCLUSIONS Increased LV mass with mildly reduced LV systolic function Previewed by: Dr. Mohit Franks MD (Electronically Signed) Final Date: 18 February 2024 14:00
--- NOTE | 2024-02-18 15:56 | P.PN ---
Subjective Progress Note Date: 02/18/[address] Patient initially seen by Dr[address] Jaden Meza. Please refer to his note for details. Patient is a 63-year-old female with dizziness, speech difficulty and difficulty walking. Pending stroke workup. Patient was seen for follow-up. Patient states that she is feeling much better. However while she was tipping her head to look at the toilet paper, it made her dizzy and lightheaded. Otherwise no focal symptoms. Her speech and language functions are back to normal. Some of the workup during this hospital visit consisted of: I reviewed the lab workup. Urinalysis is cloudy, leukocyte esterase is large, urine bacteria is rare. Drug screen is positive for opiates as well as benzo CT of the head is reported as no acute intracranial process. I personally reviewed the CT of the head and I agree there is no acute or subacute stroke. CT angiography of the head and neck is reported as no significant stenosis. Objective - Vital Signs Vital signs: Vital Signs Temp 98.2 F 02/18/24 08:00 Pulse 75 02/18/24 11:33 Resp 17 02/18/24 11:33 BP 118/75 02/18/24 11:33 Pulse Ox 94 L 02/18/24 11:33 FiO2 Intake & Output 02/17/24 02/18/24 02/18/24 18:59 06:59 18:59 Intake Total 340 444 Balance 340 444 Weight 81.1 kg Intake: Oral 340 444 Other: # Voids 3 1 - Exam Patient's mental status, speech and language functions are normal. No aphasia or dysarthria. Cranial nerves are normal. Visual henderson are full, face is symmetric. Tongue protrudes to midline. On muscle strength testing there is no pronator drift and the strength is normal in arms and legs. There is mild hesitancy for hrzdhi-rt-tqph testing bilaterally. No obvious ataxia. Sensory to touch is equal. - Labs CBC & Chem 7: 02/17/24 22:39 02/17/24 22:39 Labs: Abnormal Lab Results - Last 24 Hours (Table) 02/17/24 02/17/24 Range/Units 22:39 22:39 RBC 3.78 L (3.80-5.40) m/uL Plt Count 139 L (150-450) k/uL BUN 24 H (7-17) mg/dL Glucose 126 H (74-99) mg/dL Microbiology - Last 24 Hours (Table) 02/15/24 21:35 Urine Culture - Final Urine,Voided Assessment and Plan Assessment: This is a 63-year-old woman who presented emergency department because of dizziness, difficulty walking and speech difficulty since this past Saturday. On examination she had left nasolabial flattening and she feels she is sometimes having difficulty getting her words out even though she knows what she wants to say. Probable TIA. Acute stroke ruled out with MRI. No IV thrombolytic since outside the window and the risk outweigh the benefit. Abnormal UA. Urine cultures grew skin javier. No signs of UTI. Diabetes mellitus Hypertension and patient has a history of hypertension and states it is controlled History of ulcerative colitis Plan: Dr. Meza recommended aspirin 81 mg daily for stroke prophylaxis if cleared by primary team especially with a history of ulcerative colitis. MRI of the brain revealed no evidence of acute intracranial mass or acute/subacute infarct. Nonspecific bilateral changes, likely secondary to small vessel ischemic disease. Moderate paranasal sinus disease. I personally reviewed MRI agree with the findings. 2D echo revealed LVEF 45 to 50%. Mildly increased septal wall thickness. Mild increased posterior wall thickness. No obvious regional wall motion abnormalities. Mildly increased left atrial volume. No thrombus. Lipid panel with cholesterol 106, LDL 27, HDL 57, triglycerides 107. Continue Lipitor, we will decrease down to 20 mg daily. Patient was on Lipitor 10 mg at home. Patient has history of diabetes. Patient states that she had her hemoglobin A1c checked on Saturday, 3 days ago, was 6.8. Diabetes is well-controlled. No need to repeat. If you are staying 6 point repeat Continue neurochecks Cardiac monitoring Consulted PT OT and DOG BEHAVIORIST Will defer the rest of the medical management to primary and other specialist DVT prophylaxis I started the patient on Lovenox Neurologically clear.
[2024-02-18] MEDS: ASPIRIN 81 MG PO SCH (16:21)
[2024-02-18] MEDS: ATORVASTATIN 20 MG TAB PO SCH (19:39)
--- NOTE | 2024-02-18 21:10 | PN ---
PROGRESS NOTE DATE OF SERVICE: 02/18/2024 CHIEF COMPLAINT: Aphasia and weakness. HISTORY OF PRESENT ILLNESS: This lady is doing fairly well and her speech has nearly completely come back. She has been seen by Neurology. MRI has been ordered. Echocardiogram has also been ordered and is not back. It was thought that she might go to the home, but she feels unsteady when she walks with poor balance and ataxia. She has been seen by Neurology. PHYSICAL EXAMINATION: VITAL SIGNS: Normal. HEAD, EARS, EYES, NOSE, MOUTH, AND THROAT: Normal. CHEST: Clear. CARDIAC: Normal. No murmurs or extra sounds. ABDOMEN: Soft, nontender. NEUROLOGIC: She seems to be nearly completely intact. IMPRESSION: Probable cerebrovascular accident with aphasia, weakness, and ataxia. PLAN: 1. Increase activity. 2. Await for echocardiogram and MRI report. MMODL / IJN: [id number] /
--- NOTE | 2024-02-19 00:31 | HP ---
HISTORY AND PHYSICAL CHIEF COMPLAINT: Difficulty speaking, slight weakness on the right, and difficulty walking. HISTORY OF PRESENT ILLNESS: This lady was admitted after she experienced some trouble speaking and walking. She came to the emergency room, where her speech was improving, she was doing better. It was felt that this may have been a TIA or CVA, and she was admitted. REVIEW OF SYSTEMS: She denied any confusion, headache, chest pain, syncope, loss of bladder control, etc. Past medical history, family history and personal and social histories reveal that she cannot take ROGE inhibitors. She has been on: 1. Losartan. 2. Potassium. 3. Lasix. 4. Vicodin. 5. Metformin. 6. Ibuprofen. 7. Atorvastatin. 8. Albuterol. 9. DuoNeb. 10.Trazodone. 11.Ativan. 12.Adderall. Past medical history, family history and personal and social histories are essentially unremarkable. She is a nonsmoker. PHYSICAL EXAM: VITAL SIGNS: Blood pressure is 140/84 with a tachycardia of 125 beats a minute. She is afebrile. GENERAL: She appeared to be in no acute distress. SKIN: Dry. HEAD, EARS, EYES, NOSE, MOUTH, AND THROAT: Normal. Gaze is conjugate. Pupils are equal, round, and reactive. Carotids are normal. CHEST: Clear. CARDIAC: Demonstrates sinus tachycardia with no murmurs or extra sounds. ABDOMEN: Soft and nontender. EXTREMITIES: Normal. NEUROLOGICAL: She seemed to be intact. Speech seemed to be back to normal, although she felt she was still having a little bit of difficulty. She denied any significant focal neurologic weakness. IMPRESSION: She is admitted to the hospital with diagnosis of probable transient ischemic attack or cerebrovascular accident. PLAN: 1. Bedrest. 2. IV fluids. 3. Frequent monitoring of her neurologic status and vital signs. 4. Neurology consult. MMODL / IJN: [id number] /
[2024-02-19] MEDS: FAMOTIDINE 20 MG TAB PO SCH (07:38)
--- NOTE | 2024-02-19 15:05 | P.PN ---
Subjective Progress Note Date: 02/19/24 02/19/2024: Patient was seen for follow-up. Patient is laying in the bed, in no acute distress. Patient offers no complaints. 02/18/2024: Patient initially seen by Dr. Jaden Meza. Please refer to his note for details. Patient is a 63-year-old female with dizziness, speech difficulty and difficulty walking. Pending stroke workup. Patient was seen for follow-up. Patient states that she is feeling much better. However while she was tipping her head to look at the toilet paper, it made her dizzy and lightheaded. Otherwise no focal symptoms. Her speech and language f unctions are back to normal. Some of the workup during this hospital visit consisted of: I reviewed the lab workup. Urinalysis is cloudy, leukocyte esterase is large, urine bacteria is rare. Drug screen is positive for opiates as well as benzo CT of the head is reported as no acute intracranial process. I personally reviewed the CT of the head and I agree there is no acute or subacute stroke. CT angiography of the head and neck is reported as no significant stenosis. Objective - Vital Signs Vital signs: Vital Signs Temp 98.1 F 02/19/24 07:42 Pulse 83 02/19/24 07:42 Resp 16 02/19/24 11:24 BP 133/60 02/19/24 07:42 Pulse Ox 93 L 02/19/24 08:05 FiO2 Intake & Output 02/18/24 02/19/24 02/19/24 18:59 06:59 18:59 Intake Total 666 420 Balance 666 420 Weight 81 kg Intake: Oral 666 420 Other: # Voids 2 1 - Exam Patient's mental status, speech and language functions are normal. No aphasia or dysarthria. Cranial nerves are normal. Visual henderson are full, face is symmetric. Tongue protrudes to midline. On muscle strength testing there is no pronator drift and the strength is normal in arms and legs. There is mild hesitancy for rqctfo-lz-syka testing bilaterally. No obvious ataxia. Sensory to touch is equal. - Labs CBC & Chem 7: 02/17/24 22:39 02/17/24 22:39 Assessment and Plan Assessment: This is a 63-year-old woman who presented emergency department because of dizziness, difficulty walking and speech difficulty since this past Saturday. On examination she had left nasolabial flattening and she feels she is sometimes having difficulty getting her words out even though she knows what she wants to say. Probable TIA. Acute stroke ruled out with MRI. No IV thrombolytic since outside the window and the risk outweigh the benefit. Abnormal UA. Urine cultures grew skin javier. No signs of UTI. Diabetes mellitus Hypertension and patient has a history of hypertension and states it is controlled History of ulcerative colitis Plan: Patient started on aspirin 81 mg daily (not at home regimen). She is tolerating aspirin well. For discharge MRI of the brain revealed no evidence of acute intracranial mass or acute/subacute infarct. Nonspecific bilateral changes, likely secondary to small vessel ischemic disease. Moderate paranasal sinus disease. I personally reviewed MRI agree with the findings. 2D echo revealed LVEF 45 to 50%. Mildly increased septal wall thickness. Mild increased posterior wall thickness. No obvious regional wall motion abnormalities. Mildly increased left atrial volume. No thrombus. Patient has low EF. We will defer to IM if, if cardiology consult is needed. Lipid panel with cholesterol 106, LDL 27, HDL 57, triglycerides 107. Continue Lipitor, we will decrease down to 20 mg daily. Patient was on Lipitor 10 mg at home. Patient has history of diabetes. Patient states that she had her hemoglobin A1c checked on Saturday, 3 days ago, was 6.8. Diabetes is well-controlled. No need to repeat. Continue neurochecks Cardiac monitoring Consulted PT OT and TECHNICAL ADJUSTER Will defer the rest of the medical management to primary and other specialist DVT prophylaxis, patient on Lovenox Neurologically clear.
[2024-02-19 16:51] LABS: Glucose,Whole Blood 125 mg/dL (70-110)
[2024-02-19 19:57] LABS: Glucose,Whole Blood 117 mg/dL (70-110)
[2024-02-20] MEDS: ONDANSETRON 4 MG/2 ML VIAL IVP PRN (04:20)
[2024-02-20 05:57] LABS: Glucose,Whole Blood 130 mg/dL (70-110)
--- NOTE | 2024-02-20 08:27 | PN ---
PROGRESS NOTE DATE OF SERVICE: 02/19/2024 CHIEF COMPLAINT: CVA. HISTORY OF PRESENT ILLNESS: This lady feels like she is doing a little bit better. She feels her balance is slightly better. She does not seem to be having trouble with her speech. PHYSICAL EXAMINATION: CHEST: Clear. CARDIAC: Normal. NEUROLOGIC: Speech seemed to be normal. IMPRESSION: Cerebrovascular accident with aphasia and right hemiparesis. PLAN: Continue to increase her activity. She is using a walker. She will probably be able to go home soon. MMODL / IJN: [id number] /
[2024-02-20 11:47] LABS: Glucose,Whole Blood 122 mg/dL (70-110)
[2024-02-20 13:38] LABS: Basophils % (A) 0 %; Eosinophils # (A) 0.3 k/uL (0-0.7); Eosinophils % (A) 3 %; HCT 43.1 % (34.0-46.0); HGB 13.8 gm/dL (11.4-16.0); Lymphocytes # (A) 1.7 k/uL (1.0-4.8); Lymphocytes % (A) 18 %; MCH 30.2 pg (25.0-35.0); MCV 94.1 fL (80.0-100.0); Mean Platelet Volume 7.5; Monocytes # (A) 0.4 k/uL (0-1.0); Monocytes % (A) 5 %; Neutrophils # (A) 6.8 k/uL (1.3-7.7); Neutrophils % (A) 73 %; Platelet Count 170 k/uL (150-450); RBC 4.58 m/uL (3.80-5.40); RDW 12.6 % (11.5-15.5); WBC 9.4 k/uL (3.8-10.6)
[2024-02-20 13:50] LABS: ALT 20 U/L (4-34); AST 25 U/L (14-36); African American GFR (CKD) >90 (>60 ml/min/1.73 sqM); Albumin 3.9 g/dL (3.5-5.0); Alkaline Phosphatase 83 U/L (38-126); Anion Gap 5 mmol/L; Blood Urea Nitrogen 22 mg/dL (7-17); Calcium 9.6 mg/dL (8.4-10.2); Carbon Dioxide 25 mmol/L (22-30); Chloride 108 mmol/L (98-107); Glucose 100 mg/dL (74-99); Non-African American GFR(CKD) 79 (>60 ml/min/1.73 sqM); Potassium 4.8 mmol/L (3.5-5.1); Sodium 138 mmol/L (137-145); Total Bilirubin 0.6 mg/dL (0.2-1.3); Total Protein 6.9 g/dL (6.3-8.2)
[2024-02-20 16:36] LABS: Glucose,Whole Blood 137 mg/dL (70-110)
[2024-02-20 19:58] LABS: Glucose,Whole Blood 134 mg/dL (70-110)
[2024-02-21 06:02] LABS: Glucose,Whole Blood 162 mg/dL (70-110)
--- NOTE | 2024-02-21 10:43 | P.PN ---
Subjective Progress Note Date: 02/20/24 02/20/2024: Patient was seen for a follow-up. Patient is laying in the bed, no acute complaints. No new focal symptoms. 02/19/2024: Patient was seen for follow-up. Patient is laying in the bed, in no acute distress. Patient offers no complaints. 02/18/2024: Patient initially seen by Dr. Jaden Meza. Please refer to his note for details. Patient is a 63-year-old female with dizziness, speech difficulty and difficulty walking. Pending stroke workup. Patient was seen for follow-up. Patient states that she is feeling much better. However while she was tipping her head to look at the toilet paper, it made her dizzy and lightheaded. Otherwise no focal symptoms. Her speech and language functions are back to normal. Some of the workup during this hospital visit consisted of: I reviewed the lab workup. Urinalysis is cloudy, leukocyte esterase is large, urine bacteria is rare. Drug screen is positive for opiates as well as benzo CT of the head is reported as no acute intracranial process. I personally revie wed the CT of the head and I agree there is no acute or subacute stroke. CT angiography of the head and neck is reported as no significant stenosis. Objective - Vital Signs Vital signs: Vital Signs Temp 98.5 F 02/20/24 16:00 Pulse 75 02/20/24 16:00 Resp 16 02/20/24 16:00 BP 100/55 02/20/24 16:00 Pulse Ox 94 L 02/20/24 16:00 FiO2 Intake & Output 02/19/24 02/20/24 02/20/24 18:59 06:59 18:59 Intake Total 894 540 Balance 894 540 Weight 80.2 kg Intake: Oral 894 540 Other: # Voids 1 1 1 # Bowel Movements 1 - Exam Patient's mental status, speech and language functions are normal. No aphasia or dysarthria. Cranial nerves are normal. Visual henderson are full, face is symmetric. Tongue protrudes to midline. On muscle strength testing there is no pronator drift and the strength is normal in arms and legs. There is mild hesitancy for [id number] testing bilaterally. No obvious ataxia. Sensory to touch is equal. - Labs CBC & Chem 7: 02/20/24 13:22 02/20/24 13:22 Labs: Abnormal Lab Results - Last 24 Hours (Table) 02/19/24 02/20/24 02/20/24 Range/Units 19:56 05:55 11:43 Chloride (98-107) mmol/L BUN (7-17) mg/dL Glucose (74-99) mg/dL POC Glucose (mg/dL) 117 H 130 H 122 H (70-110) mg/dL 02/20/24 02/20/24 Range/Units 13:22 16:35 Chloride 108 H (98-107) mmol/L BUN 22 H (7-17) mg/dL Glucose 100 H (74-99) mg/dL POC Glucose (mg/dL) 137 H (70-110) mg/dL Assessment and Plan Assessment: This is a 63-year-old woman who presented emergency department because of dizziness, difficulty walking and speech difficulty since this past Saturday. On examination she had left nasolabial flattening and she feels she is sometimes having difficulty getting her words out even though she knows what she wants to say. Probable TIA. Acute stroke ruled out with MRI. No IV thrombolytic since outside the window and the risk outweigh the benefit. Abnormal UA. Urine cultures grew skin javier. No signs of UTI. Diabetes mellitus Hypertension and patient has a history of hypertension and states it is controlled History of ulcerative colitis Plan: Patient started on aspirin 81 mg daily (not at home regimen). She is tolerating aspirin well. For discharge MRI of the brain revealed no evidence of acute intracranial mass or acute/subacute infarct. Nonspecific bilateral changes, likely secondary to small vessel ischemic disease. Moderate paranasal sinus disease. I personally reviewed MRI agree with the findings. 2D echo revealed LVEF 45 to 50%. Mildly increased septal wall thickness. Mild increased posterior wall thickness. No obvious regional wall motion abnormal ities. Mildly increased left atrial volume. No thrombus. Patient has low EF. We will defer to IM if, if cardiology consult is needed. Lipid panel with cholesterol 106, LDL 27, HDL 57, triglycerides 107. Continue Lipitor, we will decrease down to 20 mg daily. Patient was on Lipitor 10 mg at home. Patient has history of diabetes. Patient states that she had her hemoglobin A1c checked on Saturday, 3 days prior to arrival and was 6.8. Diabetes is well- controlled. No need to repeat. Continue neurochecks Cardiac monitoring Consulted PT OT and RESIDENT ADVISOR Will defer the rest of the medical management to primary and other specialist DVT prophylaxis, patient on Lovenox Neurologically clear, if cleared medically.
[2024-02-21 11:22] LABS: Glucose,Whole Blood 108 mg/dL (70-110)
[2024-02-21 12:13] VITALS: BMI 34.7
[2024-02-21 16:48] LABS: Glucose,Whole Blood 128 mg/dL (70-110)
[2024-02-21 19:51] LABS: Glucose,Whole Blood 137 mg/dL (70-110)
[2024-02-22 05:53] LABS: Glucose,Whole Blood 96 mg/dL (70-110)
--- NOTE | 2024-02-22 08:44 | P.PN ---
Subjective Progress Note Date: 02/21/24 02/21/2024: Patient was seen for a follow-up. Patient complaining of upset stomach, also complaining of some sleep apnea issues. She follows up with Dr. Morales. Patient is having some issues with the CPAP machine. Patient was encouraged to follow up with her sleep specialist. Neurologically, no other concerns. No new focal symptoms. 02/20/2024: Patient was seen for a follow-up. Patient is laying in the bed, no acute complaints. No new focal symptoms. 02/19/2024: Patient was seen for follow-up. Patient is laying in the bed, in no acute distress. Patient offers no complaints. 02/18/2024: Patient initially seen by Dr. Jaden Meza. Please refer to his note for details. Patient is a 63-year-old female with dizziness, speech difficulty and difficulty walking. Pending stroke workup. Patient was seen for follow-up. Patient states that she is feeling much better. However while she was tipping her head to look at the toilet paper, it made her dizzy and lightheaded. Otherwise no focal symptoms. Her speech and language functions are back to normal. Some of the workup during this hospital visit consisted of: I reviewed the lab workup. Urinalysis is cloudy, leukocyte esterase is large, urine bacteria is rare. Drug screen is positive for opiates as well as benzo CT of the head is reported as no acute intracranial process. I personally reviewed the CT of the head and I agree there is no acute or subacute stroke. CT angiography of the head and neck is reported as no significant stenosis. Objective - Vital Signs Vital signs: Vital Signs Temp 98.0 F 02/21/24 08:00 Pulse 85 02/21/24 16:00 Resp 16 02/21/24 14:00 BP 108/69 02/21/24 16:00 Pulse Ox 94 L 02/21/24 16:00 FiO2 Intake & Output 02/21/24 02/21/24 02/22/24 06:59 18:59 06:59 Intake Total 638 Balance 638 Weight 80.6 kg 80.6 kg Intake: Oral 638 Other: # Voids 1 2 # Bowel Movements 1 - Exam Patient's mental status, speech and language functions are normal. No aphasia or dysarthria. Cranial nerves are normal. Visual henderson are full, face is symmetric. Tongue protrudes to midline. On muscle strength testing there is no pronator drift and the strength is normal in arms and legs. There is mild hesitancy for [id number]-lr-[id number] testing bilaterally. No obvious ataxia. Sensory to touch is equal. - Labs CBC & Chem 7: 02/20/24 13:22 02/20/24 13:22 Labs: Abnormal Lab Results - Last 24 Hours (Table) 02/20/24 02/21/24 02/21/24 Range/Units 19:57 06:01 16:46 POC Glucose (mg/dL) 134 H 162 H 128 H (70-110) mg/dL Assessment and Plan Assessment: This is a 63-year-old woman who presented emergency department because of dizziness, difficulty walking and speech difficulty. All symptoms have resolved. Probable TIA. Acute stroke ruled out with MRI. No IV thrombolytic since outside the window and the risk outweigh the benefit. Abnormal UA. Urine cultures grew skin javier. No signs of UTI. Diabetes mellitus Hypertension and patient has a history of hypertension and states it is controlled History of ulcerative colitis Plan: Patient started on aspirin 81 mg daily (not at home regimen). She is tolerating aspirin well. MRI of the brain revealed no evidence of acute intracranial mass or acute/subacute infarct. Nonspecific bilateral changes, likely secondary to small vessel ischemic disease. Moderate paranasal sinus disease. I personally reviewed MRI agree with the findings. 2D echo revealed LVEF 45 to 50%. Mildly increased septal wall thickness. Mild increased posterior wall thickness. No obvious regional wall motion abnormalities. Mildly increased left atrial volume. No thrombus. Patient has low EF. We will defer to IM if, if cardiology consult is needed. Lipid panel with cholesterol 106, LDL 27, HDL 57, triglycerides 107. Continue Lipitor, we will decrease down to 20 mg daily. Patient was on Lipitor 10 mg at home. Patient has history of diabetes. Patient states that she had her hemoglobin A1c checked on Saturday, 3 days prior to arrival was 6.8. Diabetes is well- controlled. No need to repeat. Continue neurochecks Cardiac monitoring Consulted PT OT and [employer] PRESCHOOL TEACHER Will defer the rest of the medical management to primary and other specialist DVT prophylaxis, patient on Lovenox Neurology will sign off. Please reconsult neurology if any concerns. A
[2024-02-22 11:43] LABS: Glucose,Whole Blood 160 mg/dL (70-110)
[2024-02-22 16:13] LABS: Glucose,Whole Blood 135 mg/dL (70-110)
[2024-02-22 20:49] LABS: Glucose,Whole Blood 142 mg/dL (70-110)
[2024-02-23 06:33] LABS: Glucose,Whole Blood 106 mg/dL (70-110)
[2024-02-23 11:26] LABS: Glucose,Whole Blood 129 mg/dL (70-110)
--- NOTE | 2024-02-23 11:28 | P.CRDCN ---
History of Present Illness History of present illness: HISTORY OF PRESENT ILLNESS: This is a 63-year-old female with a past medical history significant for hypertension, diabetes, and obesity. Patient follows in the office with Dr. Mann. We have been asked to see the patient in consultation for TIA, reduced EF. Patient examined at the bedside. Patient states she came into the emergency room with symptoms of insomnia, tripping over her own feet, and difficulty finding the right words to say. She denied having any chest pain or shortness of breath at that time. Patient was evaluated by neurology. MRI was negative for CVA. Patient states her symptoms have since resolved. Patient denies any palpitations. Telemetry reveals sinus mechanism with no episodes of atrial fibrillation. Patient does report having some occasional episodes of shortness of breath with exertion and vague chest discomfort. She is a non-smoker. DIAGNOSTICS: - EKG reveals sinus mechanism with nonspecific ST-T wave changes. - Chest xray negative for acute process. - Laboratory data: WBC 9.4. Hemoglobin 13.8. Platelet count 170. Sodium 138. Potassium 4.8. BUN 22. Creatinine 0.81. proBNP less than 20. - Current home cardiac medications include losartan 100 mg daily, Lasix 20 mg daily, Lipitor 10 mg at night. - Echocardiogram completed this admission reveals ejection fraction 45 to 50% with no obvious regional wall motion abnormalities, mild TR, trace to mild MR - Previous echocardiogram performed in December 2017 in the office revealed annemarie rderline normal systolic function with ejection fraction 50% and mild TR - Patient underwent Lexiscan stress test in 2018 which was negative for acute ischemia REVIEW OF SYSTEMS: At the time of my exam: CONSTITUTIONAL: Denies fever or chills. HEENT: Denies blurred vision, vision changes, or eye pain. Denies hemoptysis CARDIOVASCULAR: Denies chest pain. Denies orthopnea. Denies PND. Denies palpi tations RESPIRATORY: Denies shortness of breath. GASTROINTESTINAL: Denies abdominal pain. Denies nausea or vomiting. HEMATOLOGIC: Denies bleeding disorders. GENITOURINARY: Denies any blood in urine. SKIN: Denies pruitis. Denies rash. PHYSICAL EXAM: VITAL SIGNS: Reviewed. GENERAL: Well-developed in no acute distress. HEENT: Head is normocephalic. Pupils are equal, round. Sclerae anicteric. Mucous membranes of the mouth are moist. Neck supple. No JVD or thyromegaly LUNGS: Respirations even and unlabored. Lungs essentially clear to auscultation bilaterally. HEART: Regular rate and rhythm. S1 and S2 heard. ABDOMEN: Soft. Nondistended. Nontender. EXTREMITIES: Normal range of motion. No clubbing or cyanosis. Peripheral pulses intact. No lower extremity edema NEUROLOGIC: Awake and alert. Oriented x 3. ASSESSMENT: Possible TIA, brain MRI negative for CVA Mild cardiomyopathy, ischemic versus nonischemic Hypertension Diabetes Obesity: BMI 34.7 PLAN: An acute coronary event has been ruled out Continue aspirin 81 mg daily Atorvastatin has been increased to 20 mg at night Obtain bubble study 30-day event monitor at the time of discharge to rule out atrial fibrillation Will plan for outpatient stress testing Further recommendations pending patient course Nurse practitioner note has been reviewed by physician. Signing provider agrees with the documented findings, assessment, and plan of care documented by SOFTWARE QUALITY SPECIALIST as a scribe. Past Medical History Past Medical History: Asthma, Chest Pain / Angina, COPD, Diabetes Mellitus, Eye Disorder, Fibromyalgia, GERD/Reflux, Hypertension, Osteoarthritis (OA), Pneumonia, Sleep Apnea/CPAP/BIPAP, Thyroid Disorder Additional Past Medical History / Comment(s): ulcerative colitis, hx anemia, "overactive bladder", insomnia, ULCERATIVE COLITIS neuropathy, "rt eye after cataract surgery not healing" has cpap machine History of Any Multi-Drug Resistant Organisms: None Reported Past Surgical History: Bowel Resection, Breast Surgery, Hernia Repair, Hysterectomy, Joint Replacement Additional Past Surgical History / Comment(s): RT BREAST-BENIGN TUMOR REMOVED, DANYEL KNEE REPLACEMENT, COLONOSCOPY, danyel cataract surgery Past Anesthesia/Blood Transfusion Reactions: Previous Problems w/ Anesthesia, Motion Sickness Additional Past Anesthesia/Blood Transfusion Reaction / Comment(s): seizure- after surgery (caused by severe sleep apnea per pt), Past Psychological History: ADD/ADHD, Anxiety, Depression Smoking Status: Never smoker Past Alcohol Use History: None Reported Past Drug Use History: None Reported - Past Family History Father Family Medical History: Cancer Additional Family Medical History / Comment(s): Father at age 70 of a brain tumor Mother Family Medical History: Myocardial Infarction ([place]) Additional Family Medical History / Comment(s): Legally blind. Mother at age 53 yrs. Sister(s) Family Medical History: Cancer Medications and Allergies Home Medications Medication Instructions Recorded Confirmed Type sulfaSALAzine [Azulfidine] 500 mg PO QID 12/03/13 02/16/24 History Furosemide [Lasix] 20 mg PO DAILY 01/19/15 02/16/24 History Losartan Potassium 100 mg PO DAILY 01/19/15 02/16/24 History metFORMIN HCL [Glucophage] 500 mg PO BID 05/05/18 02/16/24 History Albuterol Inhaler [Ventolin Hfa 2 puff INHALATION RT-Q4H PRN 02/16/24 02/16/24 History Inhaler] Atorvastatin [Lipitor] 10 mg PO HS 02/16/24 02/16/24 History Dextroamphetamine Sulfate [Zenzedi] 10 mg PO BID 02/16/24 02/16/24 History HYDROcodone/APAP 5-325MG [[address] 1 tab PO TID PRN 02/16/24 02/16/24 History 5-325] Ipratropium-Albuterol Nebulize 3 ml INHALATION RT-QID PRN 02/16/24 02/16/24 History [Duoneb 0.5 mg-3 mg/3 ml Soln] LORazepam 2 mg PO BID 02/16/24 02/16/24 History Mometasone/Formoterol [Dulera 100 2 puff INHALATION RT-BID 02/16/24 02/16/24 History Mcg-5 Mcg Inhaler] Montelukast [Singulair] 10 mg PO DAILY 02/16/24 02/16/24 History Pantoprazole [Protonix] 40 mg PO DAILY PRN 02/16/24 02/16/24 History Potassium Chloride ER [K-Dur 20] 20 meq PO TID 02/16/24 02/16/24 History Venlafaxine HCl [Effexor XR] 150 mg PO DAILY 02/16/24 02/16/24 History traZODone HCL 150 - 300 mg PO HS 02/16/24 02/16/24 History Allergies Allergy/AdvReac Type Severity Reaction Status Date / Time nickel Allergy allergy Verified 02/16/24 08:59 test lisinopril AdvReac Itching,ap Verified 02/16/24 08:59 h,headache "amerchol" Allergy per Uncoded 05/05/18 13:18 allergy test gold Allergy allergy Uncoded 05/05/18 13:18 rash Physical Exam Vitals: Vital Signs Temp Pulse Resp BP Pulse Ox 02/23/24 08:45 98 F 73 18 117/71 96 02/23/24 03:55 98.5 F 69 18 90/58 95 02/22/24 23:48 98.4 F 81 18 96/67 95 02/22/24 19:37 98.3 F 80 18 115/81 92 L 02/22/24 16:10 97.9 F 76 18 121/75 95 02/22/24 12:15 99.4 F 82 18 110/74 94 L Intake and Output 02/22/24 02/23/24 02/23/24 22:59 06:59 14:59 Intake Total 240 240 Balance 240 240 Intake: Oral 240 240 Other: # Voids 1 # Bowel Movements 0 Weight 80.5 kg Results 02/20/24 13:22 02/20/24 13:22 Current Medications Generic Name Dose Route Start Last Admin Trade Name Freq PRN Reason Stop Dose Admin Acetaminophen 650 mg 02/15/24 22:33 Acetaminophen Tab 325 Mg Tab PO Q6HR PRN Mild Pain or Fever > 100.5 Hydrocodone Bitart/Acetaminophen 1 each 02/16/24 09:36 02/19/24 20:02 Hydrocodone/Apap 5-325mg 1 Each Tab PO 1 each TID PRN Administration Pain Albuterol Sulfate 2.5 mg 02/16/24 17:41 Albuterol Nebulized 2.5 Mg/3 Ml INHALATION RT-Q4H PRN Shortness Of Breath Albuterol/Ipratropium 3 ml 02/16/24 17:41 Ipratropium-Albuterol 3 Ml Neb INHALATION RT-QID PRN Shortness Of Breath Aspirin 81 mg 02/18/24 16:15 02/23/24 08:45 Aspirin 81 Mg PO 81 mg DAILY TIARA Administration Atorvastatin Calcium 20 mg 02/18/24 21:00 02/22/24 20:17 Atorvastatin 20 Mg Tab PO 20 mg HS TIARA Administration Budesonide/Formoterol Fumarate 2 puff 02/16/24 20:00 02/23/24 09:40 Symbicort 80-4.5 Mcg Inhaler INHALATION Not Given RT-BID TIARA Enoxaparin Sodium 40 mg 02/16/24 09:00 02/23/24 08:46 Enoxaparin 40 Mg/0.4 Ml Syringe SQ 40 mg DAILY TIARA Administration Famotidine 20 mg 02/19/24 09:00 02/23/24 08:45 Famotidine 20 Mg Tab PO 20 mg DAILY TIARA Administration Furosemide 20 mg 02/16/24 09:00 02/23/24 08:45 Furosemide 20 Mg Tab PO 20 mg DAILY TIARA Administration Lorazepam 2 mg 02/16/24 21:00 02/23/24 08:46 Lorazepam 1 Mg Tab PO 2 mg BID TIARA Administration Lorazepam 1 mg 02/17/24 14:09 02/17/24 14:30 Lorazepam 2 Mg/Ml Inj IV 1 mg ONCE PRN Administration Anxiety Losartan Potassium 100 mg 02/16/24 09:00 02/23/24 08:45 Losartan 50 Mg Tab PO 100 mg QAM TIARA Administration Metformin HCl 500 mg 02/16/24 10:00 02/23/24 08:45 Metformin 500 Mg Tab PO 500 mg BID TIARA Administration Montelukast Sodium 10 mg 02/17/24 09:00 02/23/24 08:45 Montelukast 10 Mg Tab PO 10 mg DAILY TIARA Administration Naloxone HCl 0.2 mg 02/15/24 22:33 Naloxone 0.4 Mg/Ml 1 Ml Vial IV Q2M PRN Opioid Reversal Non-Formulary Medication 10 mg 02/17/24 07:30 02/23/24 04:13 Dextroamphetamine Sulfate [Zenzedi] PO Not Given AC-BID TIARA Ondansetron HCl 4 mg 02/15/24 22:33 02/21/24 17:48 Ondansetron 4 Mg/2 Ml Vial IVP 4 mg Q8HR PRN Administration Nausea And Vomiting Pantoprazole Sodium 40 mg 02/16/24 17:41 Pantoprazole 40 Mg Tablet PO DAILY PRN ACID REFULX Potassium Chloride 20 meq 02/16/24 22:00 02/23/24 08:45 Potassium Chloride Er 20 Meq Tab.Er PO 20 meq TID TIARA Administration Tramadol HCl 50 mg 02/15/24 22:33 Tramadol 50 Mg Tab PO Q6H PRN Moderate Pain (Scale 4 to 6) Trazodone HCl 200 mg 02/15/24 22:45 02/22/24 20:17 Trazodone Hcl 100 Mg Tab PO 200 mg HS TIARA Administration Venlafaxine HCl 150 mg 02/17/24 09:00 02/23/24 08:45 Venlafaxine Hcl Er 150 Mg Cap PO 150 mg DAILY TIARA Administration Intake and Output 02/22/24 02/23/24 02/23/24 22:59 06:59 14:59 Intake Total 240 240 Balance 240 240 Intake: Oral 240 240 Other: # Voids 1 # Bowel Movements 0 Weight 80.5 kg 02/20/24 13:22 02/20/24 13:22
[2024-02-23 16:46] LABS: Glucose,Whole Blood 130 mg/dL (70-110)
[2024-02-23 20:04] LABS: Glucose,Whole Blood 147 mg/dL (70-110)
--- NOTE | 2024-02-23 21:59 | P.PN ---
Subjective Progress Note Date: 02/23/24 02/23/2024: Patient was seen for follow-up. Patient is laying comfortably in the bed. Offers no new complaints. No further focal symptoms. 02/21/2024: Patient was seen for a follow-up. Patient complaining of upset stomach, also complaining of some sleep apnea issues. She follows up with Dr. Morales. Patient is having some issues with the CPAP machine. Patient was encouraged to follow up with her sleep specialist. Neurologically, no other concerns. No new focal symptoms. 02/20/2024: Patient was seen for a follow-up. Patient is laying in the bed, no acute complaints. No new focal symptoms. 02/19/2024: Patient was seen for follow-up. Patient is laying in the bed, in no acute distress. Patient offers no complaints. 02/18/2024: Patient initially seen by Dr. Jaden Meza. Please refer to his note for details. Patient is a 63-year-old female with dizziness, speech difficulty and difficulty walking. Pending stroke workup. Patient was seen for follow-up. Patient states that she is feeling much better. However while she was tipping her head to look at the toilet paper, it made her dizzy and lightheaded. Otherwise no focal symptoms. Her speech and language functions are back to normal. Some of the workup during this hospital visit consisted of: I reviewed the lab workup. Urinalysis is cloudy, leukocyte esterase is large, urine bacteria is rare. Drug screen is positive for opiates as well as benzo CT of the head is reported as no acute intracranial process. I personally reviewed the CT of the head and I agree there is no acute or subacute stroke. CT angiography of the head and neck is reported as no significant stenosis. Objective - Vital Signs Vital signs: Vital Signs Temp 98 F 02/23/24 08:45 Pulse 91 02/23/24 16:00 Resp 18 02/23/24 16:00 BP 101/71 02/23/24 16:00 Pulse Ox 93 L 02/23/24 16:00 FiO2 Intake & Output 02/22/24 02/23/24 02/23/24 18:59 06:59 18:59 Intake Total 840 358 Balance 840 358 Weight 80.5 kg Intake: Oral 840 358 Other: # Voids 1 # Bowel Movements 0 - Exam Patient's mental status, speech and language functions are normal. No aphasia or dysarthria. Cranial nerves are normal. Visual hendesron are full, face is symmetric. Tongue protrudes to midline. On muscle strength testing there is no pronator drift and the strength is normal in arms and legs. There is mild hesitancy for [id number] testing bilaterally. No obvious haris jacob. Sensory to touch is equal. - Labs CBC & Chem 7: 02/20/24 13:22 02/20/24 13:22 Labs: Abnormal Lab Results - Last 24 Hours (Table) 02/22/24 02/23/24 02/23/24 Range/Units 20:47 11:20 16:45 POC Glucose (mg/dL) 142 H 129 H 130 H (70-110) mg/dL Assessment and Plan Assessment: This is a 63-year-old woman who presented emergency department because of dizziness, difficulty walking and speech difficulty. All symptoms have resolved. Probable TIA. Acute stroke ruled out with MRI. No IV thrombolytic since outside the window and the risk outweigh the benefit. Abnormal UA. Urine cultures grew skin javier. No signs of UTI. Diabetes mellitus Hypertension and patient has a history of hypertension and states it is controlled History of ulcerative colitis Plan: Patient started on aspirin 81 mg daily (not at home regimen). She is tolerating aspirin well. MRI of the brain revealed no evidence of acute intracranial mass or acute/subacute infarct. Nonspecific bilateral changes, likely secondary to small vessel ischemic disease. Moderate paranasal sinus disease. I personally reviewed MRI agree with the findings. 2D echo revealed LVEF 45 to 50%. Mildly increased septal wall thickness. Mild increased posterior wall thickness. No obvious regional wall motion abnormalities. Mildly increased left atrial volume. No thrombus. Appreciate cardiology input. They are recommending a bubble study, 30-day event monitor at the time of discharge to rule out atrial fibrillation. Patient will undergo outpatient stress testing. Lipid panel with cholesterol 106, LDL 27, HDL 57, triglycerides 107. Continue Lipitor, we will decrease down to 20 mg daily. Patient was on Lipitor 10 mg at home. Patient has history of diabetes. Patient states that she had her hemoglobin A1c checked on Saturday, 3 days prior to arrival was 6.8. Diabetes is well-controlled . No need to repeat. Continue neurochecks Cardiac monitoring Consulted PT OT and PARIMUTUEL TICKET CHECKER Will defer the rest of the medical management to primary and other specialist DVT prophylaxis, patient on Lovenox Discussed with primary physician. Neurology will sign off. Please reconsult neurology if any concerns. A
[2024-02-24 06:23] LABS: Glucose,Whole Blood 113 mg/dL (70-110)
[2024-02-24] MEDS: ACETAMINOPHEN TAB 325 MG TAB PO PRN (09:23)
--- NOTE | 2024-02-24 11:17 | CA ---
Transthoracic Echo Report Name: Caitlin Ambriz Age: 63 Gender: F : 1960 Exam Date: 02/23/2024 14:35 Exam Location: [facility] Ht (in): 60 Wt (lb): 177 Ordering Physician: Lucila Rhoades Attending/Referring Phys: [id number], [place] Field Interviewer Zuleika Thompson RDCS Procedure CPT: Indications: NEED BUBBLE STUDY ONLY, TIA Cardiac Hx: limited study for bubbles only Technical Quality: Fair Contrast 1: Total Dose (mL): Contrast 2: Total Dose (mL): MEASUREMENTS (Male / Female) Normal Values FINDINGS Left Ventricle Left ventricular ejection fraction is estimated at 50-55 %. Right Ventricle Right Atrium Normal right atrial size. Negative agitated saline bubble study for right to left shunt. Left Atrium Mitral Valve Aortic Valve Tricuspid Valve Pulmonic Valve Pericardium No pericardial or pleural effusion. Aorta CONCLUSIONS Technically difficult study for interpretation No pericardial effusion Previewed by: Dr. Braden Dougherty MD (Electronically Signed) Final Date: 24 February 2024 11:15
[2024-02-24 11:41] LABS: Glucose,Whole Blood 128 mg/dL (70-110)
--- NOTE | 2024-02-24 11:53 | PN ---
PROGRESS NOTE DATE OF SERVICE: 02/20/2024 CHIEF COMPLAINT: TIA or CVA. HISTORY OF PRESENT ILLNESS: This lady is complaining of some abdominal pain without any vomiting. She has had no diarrhea. She is still having a little trouble with ataxia as well. PHYSICAL EXAMINATION: VITAL SIGNS: Normal. CHEST: Clear. CARDIAC: Normal. ABDOMEN: Soft and nontender and no masses. Bowel sounds are present. She is still having a little trouble with speech occasionally and ataxia when she walks. IMPRESSION: 1. Cerebrovascular accident or transient ischemic attack. 2. Abdominal pain. PLAN: Follow abdominal pain and workup her symptoms if they continue. In the meantime, she is working on her speech and ambulation and discharge planning has been requested. MMODL / IJN: [id number] /
[2024-02-24 11:57] VITALS: BP 128/70; PULSE 65; RESP 16; TEMP 98.5
--- NOTE | 2024-02-24 12:02 | PN ---
PROGRESS NOTE DATE OF SERVICE: 02/21/2024 CHIEF COMPLAINT: CVA. HISTORY OF PRESENT ILLNESS: This lady is improving. She is walking with a less ataxia. Abdominal pain is gone. PHYSICAL EXAMINATION: CHEST: Clear. CARDIAC: Normal. ABDOMEN: Soft, nontender. IMPRESSION: Transient ischemic attack with ataxia and expressive aphasia. PLAN: Continue to increase activity and try to get her discharged soon. MMODL / IJN: [id number] /
--- NOTE | 2024-02-24 12:11 | P.PN ---
Subjective Progress Note Date: 02/24/24 This is a 63-year-old female with a past medical history significant for hypertension, diabetes, and obesity. Patient follows in the office with Dr. Mann. We have been asked to see the patient in consultation for TIA, reduced EF. Patient examined at the bedside. Patient states she came into the emergency room with symptoms of insomnia, tripping over her own feet, and difficulty finding the right words to say. She denied having any chest pain or shortness of breath at that time. Patient was evaluated by neurology. MRI was negative for CVA. Patient states her symptoms have since resolved. Patient denies any palpitations. Telemetry reveals sinus mechanism with no episodes of atrial fibrillation. Patient does report having some occasional episodes of shortness of breath with exertion and vague chest discomfort. She is a non-smoker. DIAGNOSTICS: - EKG reveals sinus mechanism with nonspecific ST-T wave changes. - Chest xray negative for acute process. - Laboratory data: WBC 9.4. Hemoglobin 13.8. Platelet count 170. Sodium 138. Potassium 4.8. BUN 22. Creatinine 0.81. proBNP less than 20. - Current home cardiac medications include losartan 100 mg daily, Lasix 20 mg daily, Lipitor 10 mg at night. - Echocardiogram completed this admission reveals ejection fraction 45 to 50% with no obvious regional wall motion abnormalities, mild TR, trace to mild MR - Previous echocardiogram performed in December 2017 in the office revealed borderline normal systolic function with ejection fraction 50% and mild TR - Patient underwent Lexiscan stress test in 2018 which was negative for acute ischemia 02/24/2024 The patient was seen and examined resting comfortably in bed. She is overall feeling fairly well. Denies any chest discomfort or shortness of breath. Bubble study is pending. REVIEW OF SYSTEMS: At the time of my exam: CONSTITUTIONAL: Denies fever or chills. HEENT: Denies blurred vision, vision changes, or eye pain. Denies hemoptysis CARDIOVASCULAR: Denies chest pain. Denies orthopnea. Denies PND. Denies palpitations RESPIRATORY: Denies shortness of breath. GASTROINTESTINAL: Denies abdominal pain. Denies nausea or vomiting. PHYSICAL EXAM: VITAL SIGNS: Reviewed. GENERAL: Well-developed in no acute distress. HEENT: Head is normocephalic. Pupils are equal, round. Sclerae anicteric. Mucous membranes of the mouth are moist. Neck supple. No JVD or thyromegaly LUNGS: Respirations even and unlabored. Lungs essentially clear to auscultation bilaterally. HEART: Regular rate and rhythm. S1 and S2 heard. ABDOMEN: Soft. Nondistended. Nontender. EXTREMITIES: Normal range of motion. No clubbing or cyanosis. Peripheral pulses intact. No lower extremity edema NEUROLOGIC: Awake and alert. Oriented x 3. ASSESSMENT: Possible TIA, brain MRI negative for CVA Mild cardiomyopathy, ischemic versus nonischemic Hypertension Diabetes Obesity: BMI 34.7 PLAN: If bubble study is unremarkable patient may be discharged home 30-day event monitor at the time of discharge to rule out atrial fibrillation Will plan for outpatient stress testing She will follow-up in the office with Dr. Mann [employer] note has been reviewed, I agree with a documented findings and plan of care. Patient was seen and examined. Objective - Vital Signs Vital signs: Vital Signs Temp 98.5 F 02/24/24 11:56 Pulse 65 02/24/24 11:56 Resp 16 02/24/24 11:56 BP 128/70 02/24/24 11:56 Pulse Ox 93 L 02/24/24 09:16 FiO2 Intake & Output 02/23/24 02/24/24 02/24/24 18:59 06:59 18:59 Intake Total 358 128 Balance 358 128 Weight 81 kg Intake: IV 10 Invasive Line 1 10 Oral 358 118 Other: # Voids 2 1 1 - Labs CBC & Chem 7: 02/20/24 13:22 02/20/24 13:22 Labs: Abnormal Lab Results - Last 24 Hours (Table) 02/23/24 02/23/24 02/24/24 Range/Units 16:45 20:03 06:22 POC Glucose (mg/dL) 130 H 147 H 113 H (70-110) mg/dL 02/24/24 Range/Units 11:36 POC Glucose (mg/dL) 128 H (70-110) mg/dL
--- NOTE | 2024-02-24 12:17 | PN ---
PROGRESS NOTE CHIEF COMPLAINT: Cerebrovascular accident with ataxia and expressive aphasia. HISTORY OF PRESENT ILLNESS: This lady is doing fairly well. Abdominal pain is gone. It was noted that on her echocardiogram, she did have a slightly diminished ejection fraction of 40% to 50%. She will be referred to Cardiology. PHYSICAL EXAMINATION: CHEST: Clear. CARDIAC: Normal. ABDOMEN: Soft, nontender. IMPRESSION: 1. Cerebrovascular accident with expressive aphasia and ataxia. 2. Abnormal echocardiogram. PLAN: 1. Continue to increase activity. 2. Cardiology consult. MMODL / IJN: [id number] /
--- NOTE | 2024-02-24 12:32 | PN ---
PROGRESS NOTE CHIEF COMPLAINT: CVA. HISTORY OF PRESENT ILLNESS: This lady is doing fairly well, but she is still having some trouble with ambulation. It was also noted her blood pressure has been fairly low. She does not feel lightheaded when she is up. PHYSICAL EXAMINATION: VITAL SIGNS: Blood pressure is 90/58. CHEST: Clear. CARDIAC: Normal. ABDOMEN: Soft, nontender. IMPRESSION: 1. Cerebrovascular accident with ataxia and aphasia. 2. Possible cardiomyopathy with reduced ejection fraction. 3. Hypotension. PLAN: Increase activity and plan for discharge tomorrow once arrangements were made at home. MMODL / IJN: [id number] /
--- NOTE | 2024-02-24 15:53 | PN ---
PROGRESS NOTE DATE OF SERVICE: 02/16/2024 CHIEF COMPLAINT: Difficulty speaking and unsteady gait. HISTORY OF PRESENT ILLNESS: This lady is doing a bit better. Her speech seems to come back, although she states she still has a little trouble forming words that she needs to say. She denies any headache. PHYSICAL EXAMINATION: VITAL SIGNS: Normal. HEAD, EARS, EYES, NOSE, MOUTH, AND THROAT: Normal. NECK: Carotids are normal. CHEST: Clear. CARDIAC: Normal. IMPRESSION: CVA or TIA with aphasia and ataxia. PLAN: Continue neurologic workup and monitoring her neurologic status and vital signs. MMODL / IJN: [id number] /
--- NOTE | 2024-02-24 16:08 | PN ---
PROGRESS NOTE DATE OF SERVICE: 02/17/2024 CHIEF COMPLAINT: TIA or CVA. HISTORY OF PRESENT ILLNESS: This lady feels like she has improved slightly. Speech seems to be a little bit more fast. She is complaining of weakness on the right side. PHYSICAL EXAMINATION: CHEST: Clear. CARDIAC: Normal. NEUROLOGIC: She may have some weakness on the right side, but it is minimal. IMPRESSION: CVA or TIA. PLAN: Progress activity and continue her neurologic evaluation. MMODL / IJN: [id number] /
--- NOTE | 2024-02-26 01:42 | DS ---
DISCHARGE SUMMARY CHIEF COMPLAINT: Right-sided weakness, difficulty speaking. HISTORY OF PRESENT ILLNESS AND PHYSICAL EXAMINATION: Details of this lady's history and physical can be found in the initial workup. LABORATORY STUDIES: While she was in the hospital, she had laboratory studies, details of which can be found in the laboratory section of her chart. COURSE IN THE HOSPITAL: After admission, she was placed on bedrest, started on intravenous fluids, and underwent neurologic evaluation. Studies failed to demonstrate any significant vascular occlusion and the carotid or cerebral system. Her speech did return. She still had some slight weakness on the right and ataxia, but these were also improving. She developed abdominal pain 1 day, that disappeared as well. Finally, it was felt that she was stable enough that she could be discharged home on the and she will be followed up as an outpatient. FINAL DIAGNOSIS: 1. Left-sided cerebrovascular accident with right hemipareses and aphasia. 2. Decreased cardiac output. OPERATIONS: None. CONSULTATIONS: Neurology and Cardiology. ISMAEL / LEORA: [id number] /
== END 2024-02-24 15:24 | disposition home or self-care (01) ==
LOC: EC 20:08 → 3SCARD 22:33
PROVIDERS: ADMIT Family Medicine; ATTEND Family Medicine
DX: I63.9 Cerebral infarction, unspecified (principal); I69.351 Hemiplegia and hemiparesis following cerebral infarction affecting right dominant side; I11.0 Hypertensive heart disease with heart failure; I50.20 Unspecified systolic (congestive) heart failure; E87.6 Hypokalemia; I42.9 Cardiomyopathy, unspecified; I95.9 Hypotension, unspecified; E11.9 Type 2 diabetes mellitus without complications; I44.4 Left anterior fascicular block; R27.0 Ataxia, unspecified; R47.01 Aphasia; J44.9 Chronic obstructive pulmonary disease, unspecified; R82.71 Bacteriuria; G47.30 Sleep apnea, unspecified; K30 Functional dyspepsia; E66.9 Obesity, unspecified; Z68.34 Body mass index [BMI] 34.0-34.9, adult; G47.00 Insomnia, unspecified; F41.9 Anxiety disorder, unspecified; Z79.51 Long term (current) use of inhaled steroids; Z79.84 Long term (current) use of oral hypoglycemic drugs; Z79.899 Other long term (current) drug therapy; Z88.8 Allergy status to other drugs, medicaments and biological substances; Z91.048 Other nonmedicinal substance allergy status; Z87.19 Personal history of other diseases of the digestive system
CPT/HCPCS: 96376 ×2; 96372 ×8; 96375; 96361 ×2; 96374; 99285; 36415; 94640 ×12; 94760 ×2; 93005; 93308; 93306; 93270; 97161; 97166; 83880; 80061; 80053 ×2; 80048; 84484; 85025 ×3; 85610; 85730; 81001; 80306; 87086; 71046; 70496; 70450; 70498; 70551; G0378 ×10; J2060; J2405 ×3; J1650 ×8; Q9967

== ENCOUNTER 2024-07-31 19:17 | Emergency (ER) | payer MEDICARE ==
[2024-07-31 19:21] VITALS: TEMP 98.7
--- NOTE | 2024-07-31 20:40 | ED ---
Head Injury HPI - General Chief complaint: Head Injury Stated complaint: bump on head from fall, dizzy Time Seen by Provider: 07/31/24 20:37 Source: patient, RN notes reviewed Mode of arrival: ambulatory Limitations: no limitations - History of Present Illness Initial comments: 64-year-old female presenting for head injury 2 hours ago. States she was k nocked into a concrete wall by a large dog, striking the left side of her head on the wall. Denies loss of consciousness. States since the fall she has been experiencing an 8 out of 10 headache, dizziness, and nausea. Denies blood thinners. - Related Data Home Medications Medication Instructions Recorded Confirmed sulfaSALAzine [Azulfidine] 500 mg PO QID 12/03/13 02/16/24 Furosemide [Lasix] 20 mg PO DAILY 01/19/15 02/16/24 Losartan Potassium 100 mg PO DAILY 01/19/15 02/16/24 metFORMIN HCL [Glucophage] 500 mg PO BID 05/05/18 02/16/24 Albuterol Inhaler [Ventolin Hfa 2 puff INHALATION RT-Q4H PRN 02/16/24 02/16/24 Inhaler] Atorvastatin [Lipitor] 10 mg PO HS 02/16/24 02/16/24 Dextroamphetamine Sulfate [Zenzedi] 10 mg PO BID 02/16/24 02/16/24 HYDROcodone/APAP 5-325MG [[place] 1 tab PO TID PRN 02/16/24 02/16/24 5-325] Ipratropium-Albuterol Nebulize 3 ml INHALATION RT-QID PRN 02/16/24 02/16/24 [Duoneb 0.5 mg-3 mg/3 ml Soln] LORazepam 2 mg PO BID 02/16/24 02/16/24 Mometasone/Formoterol [Dulera 100 2 puff INHALATION RT-BID 02/16/24 02/16/24 Mcg-5 Mcg Inhaler] Montelukast [Singulair] 10 mg PO DAILY 02/16/24 02/16/24 Pantoprazole [Protonix] 40 mg PO DAILY PRN 02/16/24 02/16/24 Potassium Chloride ER [K-Dur 20] 20 meq PO TID 02/16/24 02/16/24 Venlafaxine HCl [Effexor XR] 150 mg PO DAILY 02/16/24 02/16/24 traZODone HCL 150 - 300 mg PO HS 02/16/24 02/16/24 Allergies/Adverse reactions: Allergies Allergy/AdvReac Type Severity Reaction Status Date / Time nickel Allergy allergy Verified 07/31/24 19:20 test lisinopril AdvReac Itching,ap Verified 07/31/24 19:20 h,headache "amerchol" Allergy per Uncoded 07/31/24 19:20 allergy test gold Allergy allergy Uncoded 07/31/24 19:20 rash Review of Systems ROS Statement: Those systems with pertinent positive or pertinent negative responses have been documented in the HPI. ROS Other: All systems not noted in ROS Statement are negative. Past Medical History Past Medical History: Asthma, Chest Pain / Angina, COPD, Diabetes Mellitus, Eye Disorder, Fibromyalgia, GERD/Reflux, Hypertension, Osteoarthritis (OA), Pneumonia, Sleep Apnea/CPAP/BIPAP, Thyroid Disorder Additional Past Medical History / Comment(s): ulcerative colitis, hx anemia, "overactive bladder", insomnia, ULCERATIVE COLITIS neuropathy, "rt eye after cataract surgery not healing" has cpap machine History of Any Multi-Drug Resistant Organisms: None Reported Past Surgical History: Bowel Resection, Breast Surgery, Hernia Repair, Hysterectomy, Joint Replacement Additional Past Surgical History / Comment(s): RT BREAST-BENIGN TUMOR REMOVED, DANYEL KNEE REPLACEMENT, COLONOSCOPY, danyel cataract surgery Past Anesthesia/Blood Transfusion Reactions: Previous Problems w/ Anesthesia, Motion Sickness Additional Past Anesthesia/Blood Transfusion Reaction / Comment(s): seizure- after surgery (caused by severe sleep apnea per pt), Past Psychological History: ADD/ADHD, Anxiety, Depression Smoking Status: Never smoker Past Alcohol Use History: None Reported Past Drug Use History: None Reported - Past Family History Father Family Medical History: Cancer Additional Family Medical History / Comment(s): Father at age 70 of a brain tumor Mother Family Medical History: Myocardial Infarction ([place]) Additional Family Medical History / Comment(s): Legally blind. Mother at age 53 yrs. Sister(s) Family Medical History: Cancer General Exam Limitations: no limitations General appearance: alert, in no apparent distress Head exam: Present: normocephalic, other (There is a large hematoma on left parietal aspect of head, no abrasions or lacerations or active bleeding.). Absent: atraumatic, normal inspection Eye exam: Present: normal appearance, PERRL, EOMI. Absent: scleral icterus, conjunctival injection, periorbital swelling ENT exam: Present: normal exam, mucous membranes moist Neck exam: Present: normal inspection. Absent: tenderness, meningismus, lymphadenopathy Neurological exam: Present: alert, oriented X3, CN II-XII intact Skin exam: Present: warm, dry, intact, normal color. Absent: rash Course Vital Signs 07/31/24 07/31/24 19:19 21:27 Temperature 98.7 F Pulse Rate 109 H 85 Respiratory 18 20 Rate Blood Pressure 143/86 135/85 O2 Sat by Pulse 95 95 Oximetry Medical Decision Making - Medical Decision Making Was pt. sent in by a medical professional or institution (, PA, CLINICAL RN LIAISON, urgent care, hospital, or shelter...) When possible be specific @ -No Did you speak to anyone other than the patient for history (EMS, parent, family, police, friend...)? What history was obtained from this source @ -No Did you review nursing and triage notes (agree or disagree)? Why? @ -I reviewed and agree with nursing and triage notes Were old charts reviewed (outside hosp., previous admission, EMS record, old EKG, old radiological studies, urgent care reports/EKG's, shelter records)? Report findings @ -No old charts were reviewed Differential Diagnosis (chest pain, altered mental status, abdominal pain women, abdominal pain men, vaginal bleeding, weakness, fever, dyspnea, syncope, headache, dizziness, GI bleed, back pain, seizure, CVA, palpatations, mental health, musculoskeletal)? @ -Concussion, intracranial bleed, skull fracture, contusion EKG interpreted by me (3pts min.). @ -None X-rays interpreted by me (1pt min.). @ -None done CT interpreted by me (1pt min.). @ -CT brain and C-spine reveals no acute intracranial process U/S interpreted by me (1pt. min.). @ -None done What testing was considered but not performed or refused? (CT, X-rays, U/S, labs)? Why? @ -None What meds were considered but not given or refused? Why? @ -None Did you discuss the management of the patient with other professionals (professionals i.e. , PA, CLINICAL RN LIAISON, lab, RT, psych nurse, clinical social work aide, dental biller, teacher, environmental protection officer, child support case officer)? Give summary @ -No Was smoking cessation discussed for >3mins.? @ -No Was critical care preformed (if so, how long)? @ -No Were there social determinants of health that impacted care today? How? (Homelessness, low income, unemployed, alcoholism, drug addiction, transportation, low edu. Level, literacy, decrease access to med. care, detention, rehab)? @ -No Was there de-escalation of care discussed even if they declined (Discuss DNR or withdrawal of care, Hospice)? DNR status @ -No What co-morbidities impacted this encounter? (DM, HTN, Smoking, COPD, CAD, Cancer, CVA, ARF, Chemo, Hep., AIDS, mental health diagnosis, sleep apnea, morbid obesity)? @ -None Was patient admitted / discharged? Hospital course, mention meds given and route, prescriptions, significant lab abnormalities, going to OR and other per tinent info. @ -64-year-old female presenting for head injury 2 hours ago. No blood thinners. No loss of conscious. Patient has been experiencing headache, dizziness, and nausea. There is a large hematoma on the left parietal aspect of head. Neurological examination is unremarkable. CT brain and C-spine reveals no acute intracranial process. Discussed negative results with patient and family. Appropriate return precautions and follow-up care/supportive care discussed. Case was discussed with my ED attending Dr. Fisher. Undiagnosed new problem with uncertain prognosis? @ -No Drug Therapy requiring intensive monitoring for toxicity (Heparin, Nitro, Insulin, Cardizem)? @ -No Were any procedures done? @ -No Diagnosis/symptom? @ -Acute head injury Acute, or Chronic, or Acute on Chronic? @ -Acute Uncomplicated (without systemic symptoms) or Complicated (systemic symptoms)? @ -Uncomplicated Side effects of treatment? @ -No Exacerbation, Progression, or Severe Exacerbation? @ -No Poses a threat to life or bodily function? How? (Chest pain, [place], [place], pneumonia, PE, COPD, DKA, ARF, appy, cholecystitis, CVA, Diverticulitis, Homicidal, Suicidal, threat to staff... and all critical care pts) @ -No Disposition Clinical Impression: Closed head injury Disposition: HOME SELF-CARE Condition: Stable Instructions (If sedation given, give patient instructions): Head Injury (ED) Additional Instructions: Please follow-up with your PCP next week for reevaluation. Please return to the Emergency Department if symptoms worsen or any other concerns. Is patient prescribed a controlled substance at d/c from ED?: No Referrals: Judd Garcia MD [Primary Care Provider] - 1-2 days Time of Disposition: 22:00
[2024-07-31] MEDS: ACETAMINOPHEN TAB 325 MG TAB PO STA (20:58)
--- NOTE | 2024-07-31 21:14 | CT ---
EXAMINATION TYPE: CT brain piedadine wo con DATE OF EXAM: 07/31/2024 8:59 PM COMPARISON: None. CLINICAL INDICATION: Female, 64 years old with history of pain, PAIN AFTER FALL, pain TECHNIQUE: CT of the brain is performed utilizing 3 mm thick sections through the posterior fossa and 3 mm thick sections through the remaining calvarium. Study is performed within 24 hours of arrival to the hospital. Contrast used: mL of , (none if empty) CT DLP: 1373.7 mGycm, Automated exposure control for dose reduction was used. FINDINGS: No abnormal hyperdensity is present to suggest an acute intracranial hemorrhage. No mass lesion is evident. No acute infarcts are evident. There is an old lacunar infarct left basal ganglion Ventricles and sulci are mildly prominent for the patient age. There is opacification of the left maxillary sinus. Some mucosal thickening along the inferior right sphenoid sinus. Remaining paranasal sinuses and mastoid air cells are clear IMPRESSIONS: 1. No acute intracranial process. Follow-up MRI can be performed as clinically indicated. 2. Old lacunar infarct left basal ganglia CT cervical spine. COMPARISON: None TECHNIQUE: CT of the cervical spine is performed in the axial plane at 2 mm thick sections. Reconstr ucted images in the coronal, and sagittal plane are reviewed on the computer. FINDINGS: No acute fractures are evident. Vertebral body alignment is normal. Disc heights are preserved. Vertebral body heights are preserved. No spinal canal stenosis is evident. Foraminal narrowing is present bilaterally at C5-6. IMPRESSION: 1. No acute osseous abnormality cervical spine. [facility], , 07/31/2024 9:12 PM
[2024-07-31 21:28] VITALS: BP 135/85; PULSE 85; RESP 20
== END 2024-07-31 22:07 | disposition home or self-care (01) ==
LOC: EC 19:17
DX: S09.90XA Unspecified injury of head, initial encounter (principal); Z91.048 Other nonmedicinal substance allergy status; Z88.8 Allergy status to other drugs, medicaments and biological substances; W22.01XA Walked into wall, initial encounter
CPT/HCPCS: 70450; 72125; 99284